=== PATIENT | female | born 1950 | race Caucasian/White ===

== ENCOUNTER → 2017-07-19 13:18 | Outpatient (POV) | payer MEDICARE, SELFPAY ==
[2017-07-19 14:18] LABS: Basophils # 0.1 K/mm3 (0-0.2); Basophils % 0.8 % (0.1-2.0); Eosinophils # 0.2 K/mm3 (0.0-0.4); Eosinophils % 3.1 % (0.1-12.0); Hematocrit 41.2 % (37.0-47.0); Hemoglobin 13.3 g/dL (12.2-16.2); Lymphocytes # 1.5 K/mm3 (0.7-4.5); Lymphocytes % 25.5 K/mm3 (10-50); Mean Corpuscular HGB Conc 32.2 g/dL (31.8-35.4); Mean Corpuscular Hemoglobin 29.3 pg (27.0-31.2); Mean Corpuscular Volume 90.9 fl (81-99); Mean Platelet Volume 7.1 fl (7.4-10.4); Monocytes # 0.3 K/mm3 (0.1-1.0); Monocytes % 4.5 % (1.7-9.3); Neutrophils # 3.9 K/mm3 (1.8-7.8); Platelet Count 289 K/mm3 (142-424); Red Blood Count 4.53 M/mm3 (4.20-5.40); Red Cell Distribution Width 12.6 % (11.5-17.5); White Blood Count 5.8 K/mm3 (4.8-10.8)
[2017-07-19 15:23] LABS: Alanine Aminotransferase 40 U/L (12-78); Albumin Level 3.6 gm/dL (3.4-5.0); Albumin/Globulin Ratio 1.2 (1.1-1.8); Alkaline Phosphatase 64 U/L (46-116); Anion Gap 14.4 mEq/L (5-15); Aspartate Amino Transferase 29 U/L (15-37); Bilirubin,Total 0.3 mg/dL (0.2-1.0); Blood Urea Nitrogen 13 mg/dL (7-18); Calcium 8.8 mg/dL (8.5-10.1); Carbon Dioxide 25 mmol/L (21.0-32.0); Chloride 107 mmol/L (98-107); Creatinine,Serum 0.83 mg/dL (0.55-1.02); Estimated Glomerular Filt Rate 69 ml/min (>60); GFR (African American) 84 ML/MIN (>60); Globulin 2.9 gm/dl (1.3-3.2); Glucose 125 mg/dL (74-106); Potassium 4.4 mmoL/L (3.5-5.1); Sodium 142 mmol/L (136-145); Total Protein,Serum 6.5 gm/dL (6.4-8.2)
== END ==
PROVIDERS: Visit Provider Physician Assistant
DX: L40.0 Psoriasis vulgaris (principal); Z79.899 Other long term (current) drug therapy
CPT/HCPCS: 36415; 80053; 85025

== ENCOUNTER → 2017-08-03 14:11 | Outpatient (CLI) | payer MEDICARE, SELFPAY | PROVIDERS: Visit Provider Physician Assistant | DX: L40.9 Psoriasis, unspecified (principal); Z79.899 Other long term (current) drug therapy | CPT/HCPCS: 36415; 86480 ==

== ENCOUNTER → 2017-08-18 12:19 | Outpatient (CLI) | payer MEDICARE, SELFPAY ==
--- NOTE | 2017-08-18 | XR_ITS ---
XR shoulder LT min 2V HISTORY: ITS.REASON: LEFT SHOULDER PAIN ORDERING PHYSICIAN: Amarilys Duff MD PATIENT AGE: 66 years Comparison: None FINDINGS: No fracture or dislocation. No lytic or blastic change. There is normal mineralization. The joint spaces are well-preserved. No significant degenerative/arthritic changes. No erosive changes evident. No subacromial stenosis IMPRESSION: Negative, no acute finding
== END ==
PROVIDERS: PCP Family Medicine; Visit Provider Family Medicine
DX: M25.512 Pain in left shoulder (principal)
CPT/HCPCS: 73030

== ENCOUNTER → 2018-01-31 12:48 | Outpatient (CLI) | payer MEDICARE, SELFPAY ==
--- NOTE | 2018-01-31 12:55 | XR_ITS ---
XR DEXA axial skeleton COMPARISON: None HISTORY: The patient is postmenopausal TECHNIQUE: DEXA scanning lumbar spine and bilateral hips FINDINGS: Lumbar spine: The average BMD lumbar spine L1-L4 is 1.216 g/sq cm and the T score is 0.3. Right hip: The total BMD is 0.989 g/sq cm with a T score of -0.1 and the right femoral neck is 0.930 g/sq cm with T score of -0.8. Left hip: The total BMD is 0.963 g/sq cm the T score -0.4 and the left femoral neck is 0.947 g/sq cm the T score -0.7. IMPRESSION: Normal values for the lumbar spine and bilateral hips, consider follow-up study in approximately 2 years
== END ==
PROVIDERS: PCP Family Medicine; Visit Provider Internal Medicine Hematology & Oncology
DX: M85.89 Other specified disorders of bone density and structure, multiple sites (principal); C50.112 Malignant neoplasm of central portion of left female breast; R93.7 Abnormal findings on diagnostic imaging of other parts of musculoskeletal system
CPT/HCPCS: 77080

== ENCOUNTER → 2018-07-19 14:41 | Outpatient (POV) | payer MEDICARE, SELFPAY | PROVIDERS: Visit Provider Dermatology | DX: Z00.00 Encounter for general adult medical examination without abnormal findings (principal) ==

== ENCOUNTER → 2018-07-28 17:11 | Outpatient (CLI) | payer MEDICARE, SELFPAY | PROVIDERS: Visit Provider Podiatrist | DX: B35.1 Tinea unguium (principal) | CPT/HCPCS: 87102; 87206; 87220 ==

== ENCOUNTER → 2018-08-10 08:48 | Outpatient (CLI) | payer MEDICARE, SELFPAY ==
[2018-08-10 09:22] LABS: Basophils # 0.1 K/mm3 (0-0.2); Basophils % 0.9 % (0.1-2.0); Eosinophils # 0.1 K/mm3 (0.0-0.4); Hemoglobin 13.7 g/dL (12.2-16.2); Lymphocytes # 1.8 K/mm3 (0.7-4.5); Lymphocytes % 34.2 % (10-50); Mean Corpuscular HGB Conc 32.5 g/dL (31.8-35.4); Mean Platelet Volume 6.4 fl (7.4-10.4); Monocytes # 0.3 K/mm3 (0.1-1.0); Monocytes % 6.4 % (1.7-9.3); Neutrophils % 56.5 % (37.0-80.0); Platelet Count 331 K/mm3 (142-424); Red Blood Count 4.88 M/mm3 (4.20-5.40); Red Cell Distribution Width 14.3 % (11.5-17.5); White Blood Count 5.3 K/mm3 (4.8-10.8)
[2018-08-10 10:53] LABS: Alanine Aminotransferase 31 U/L (12-78); Albumin Level 3.7 gm/dL (3.4-5.0); Albumin/Globulin Ratio 1.1 (1.1-1.8); Alkaline Phosphatase 72 U/L (46-116); Anion Gap 10.2 mEq/L (5-15); Aspartate Amino Transferase 12 U/L (15-37); Bilirubin,Total 0.6 mg/dL (0.2-1.0); Blood Urea Nitrogen 15 mg/dL (7-18); Calcium 9.1 mg/dL (8.5-10.1); Carbon Dioxide 31 mmol/L (21.0-32.0); Chloride 105 mmol/L (98-107); Chol/HDL Ratio 2.8 (1-3.5); Cholesterol 211 mg/dL (140-200); Creatinine,Serum 0.91 mg/dL (0.55-1.02); Estimated Glomerular Filt Rate 62 ml/min (>60); Free Thyroxine Index 2.5 ug/dL (5.93-13.13); GFR (African American) 75 ML/MIN (>60); Globulin 3.5 gm/dl (1.3-3.2); Glucose 85 mg/dL (74-106); HDL Cholesterol 76 mg/dL (29-89); LDL Cholesterol 126 mg/dL (0-130); Potassium 4.2 mmoL/L (3.5-5.1); Sodium 142 mmol/L (136-145); T4 (Thyroxine) 9.3 ug/dl (4.7-13.3); Thyroid Stimulating Hormone 1.96 uIU/ml (0.358-3.740); Total Protein,Serum 7.2 gm/dL (6.4-8.2); Triglycerides 44 mg/dL (30-200); Triiodothryronine (T3) Uptake 27 % (31-39); VLDL Cholesterol 9 mg/dL (0-40)
[2018-08-12 06:22] LABS: Triiodothyronine (T3) Free 2.9 pg/mL (2.0-4.4)
== END ==
PROVIDERS: Visit Provider Nurse Practitioner Obstetrics & Gynecology
DX: E78.5 Hyperlipidemia, unspecified (principal); R53.83 Other fatigue; Z00.00 Encounter for general adult medical examination without abnormal findings; N92.6 Irregular menstruation, unspecified
CPT/HCPCS: 36415; 80053; 80061; 84436; 84443; 84479; 84481; 85025

== ENCOUNTER → 2019-01-17 14:07 | Outpatient (POV) | payer OTHER, SELFPAY | PROVIDERS: Visit Provider Dermatology | DX: Z00.00 Encounter for general adult medical examination without abnormal findings (principal) ==

== ENCOUNTER 2019-02-09 14:00 | Outpatient (RCR) | payer OTHER, SELFPAY ==
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
== END 2019-02-09 14:05 | disposition home or self-care (01) ==
LOC: PT 14:00
PROVIDERS: Visit Provider Nurse Practitioner Family
DX: S13.4XXD Sprain of ligaments of cervical spine, subsequent encounter (principal); V89.9XXA Person injured in unspecified vehicle accident, initial encounter
CPT/HCPCS: 97010; 97014; 97035; 97110; 97140; 97163; G0283

== ENCOUNTER → 2019-02-13 13:21 | Outpatient (CLI) | payer MEDICARE, SELFPAY ==
--- NOTE | 2019-02-13 13:30 | XR_ITS ---
PROCEDURE: XR DEXA AXIAL SKELETON CLINICAL HISTORY: Bone Density- Post Menopausal Postmenopausal COMPARISON: No exams were available for comparison FINDINGS: The L1-L4 density is 1.188 grams/centimeter sq with a T-score of 0.1. The lowest hip density is in the right femoral neck at 0.909 grams/centimeters sq with a T-score of -0.9 IMPRESSION: Normal bone density. Recommend follow-up exam February 2021 Dictated by: Hung Kumari MD 02/13/2019 14:10 Electronically signed by Hung Kumari MD in [facility] 02/13/2019 14:10
== END ==
PROVIDERS: PCP Family Medicine; Visit Provider Nurse Practitioner Obstetrics & Gynecology
DX: Z78.0 Asymptomatic menopausal state (principal)
CPT/HCPCS: 77080

== ENCOUNTER → 2019-03-31 13:36 | Outpatient (CLI) | payer MEDICARE, SELFPAY ==
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
[2019-03-31 14:01] LABS: Blood Urea Nitrogen 14 mg/dL (7-18); Creatinine,Serum 0.76 mg/dL (0.55-1.02); Estimated Glomerular Filt Rate 76 ml/min (>60); GFR (African American) 92 ML/MIN (>60)
== END ==
PROVIDERS: PCP Family Medicine; Visit Provider Nurse Practitioner Family
DX: R91.1 Solitary pulmonary nodule (principal); S22.20XK Unspecified fracture of sternum, subsequent encounter for fracture with nonunion
CPT/HCPCS: 36415; 71270; 82565; 84520; Q9967

== ENCOUNTER → 2019-05-09 15:26 | Outpatient (POV) | payer MEDICARE, SELFPAY | PROVIDERS: Visit Provider Dermatology | DX: Z00.00 Encounter for general adult medical examination without abnormal findings (principal) ==

== ENCOUNTER 2019-06-08 14:00 | Outpatient (RCR) | payer OTHER, SELFPAY | END 2019-06-08 14:05 | disposition home or self-care (01) | LOC: PT 14:00 | PROVIDERS: Visit Provider Nurse Practitioner Family | DX: S13.4XXD Sprain of ligaments of cervical spine, subsequent encounter (principal) | CPT/HCPCS: 97010; 97012; 97014; 97035; 97110; 97140; 97163; G0283 ==

== ENCOUNTER → 2019-08-22 12:52 | Outpatient (POV) | payer OTHER, SELFPAY | PROVIDERS: PCP Physician Assistant; Visit Provider Physician Assistant | DX: Z00.00 Encounter for general adult medical examination without abnormal findings (principal) ==

== ENCOUNTER → 2019-08-31 12:45 | Outpatient (CLI) | payer OTHER, MEDICARE, SELFPAY ==
--- NOTE | 2019-08-31 12:55 | CT_ITS ---
PROCEDURE: CT CHEST WO CON CLINICAL INDICATION: FX OF STERNUM WITH DELAYED HEALING Follow-up sternal fracture COMPARISON: CT CHEST WO/W CON from 03/31/2019 TECHNIQUE: Axial images obtained with sagittal and coronal reformats. All CT scans at the facility use one or more dose reduction, viz: automated exposure control, ma/kV adjustment per patient size (including targeted exams where dose is matched to indication, i.e. head), or iterative reconstruction technique. With delayed healing FINDINGS: HEART AND MEDIASTINAL STRUCTURES: No mediastinal or hilar mass or adenopathy. Coronary artery calcifications are present. There is minimal thickening of the pericardium anteriorly which is nonspecific. No mediastinal or hilar mass. LUNGS AND PLEURAL SPACES: There are few scattered small and stable nodular opacities including a 2 and 3 mm nodular opacity in the right upper lobe. There are scattered areas of scarring. No new suspicious nodules or infiltrates are evident. Calcified nodules present in the left upper lobe with some surrounding scarring not significantly changed BONY STRUCTURES: There is a healed fracture involving the mid aspect of the body of the sternum. The fracture line is no longer apparent. There is minimal offset of the fracture fragments with minimal dorsal displacement of the superior fracture fragment by 3 mm not significantly changed. The fracture line is no longer visible. There are mild degenerative changes of the thoracic spine UPPER ABDOMEN: Unremarkable. ADDITIONAL FINDINGS: Bilateral breast implants are in place IMPRESSION: Healed sternal fracture. Chronic changes with no acute finding. Dictated by: Hung Kumari MD 09/01/2019 13:24 Electronically signed by Hung Kumari MD in [facility] 09/01/2019 13:24
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
== END ==
PROVIDERS: PCP Nurse Practitioner Family; Visit Provider Nurse Practitioner Family
DX: S22.20XG Unspecified fracture of sternum, subsequent encounter for fracture with delayed healing (principal); M54.2 Cervicalgia; Z87.828 Personal history of other (healed) physical injury and trauma
CPT/HCPCS: 71250; 72141; 76376

== ENCOUNTER → 2019-10-26 13:53 | Outpatient (POV) | payer OTHER, MEDICARE, SELFPAY ==
[2019-10-26 14:35] VITALS: BP 127/56; PULSE 85; RESP 18; TEMP 36.8; O2SAT 98; BMI 28.8
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
== END ==
PROVIDERS: PCP Family Medicine; Visit Provider Clinical Nurse Specialist Family Health
DX: M47.896 Other spondylosis, lumbar region (principal); M54.12 Radiculopathy, cervical region; M48.02 Spinal stenosis, cervical region
CPT/HCPCS: 99202

== ENCOUNTER 2019-11-03 13:44 | Day surgery (SDC) | payer MEDICARE, SELFPAY ==
[2019-11-03 14:19] VITALS: BP 117/92; PULSE 71; RESP 18; TEMP 37; O2SAT 98; BMI 27.8
[2019-11-03 14:45] VITALS: BP 132/78; PULSE 85; RESP 18
[2019-11-03 14:47] VITALS: BP 140/78; PULSE 89; RESP 18; O2SAT 98
--- NOTE | 2019-11-03 14:55 | HMH.PMPROC ---
- Procedure Date: 11/03/19 Time: 14:55 Anesthesiologist:: Gulshan Augustin MD Complications:: None Pre-procedure Diagnosis:: Degenerative disc disease of cervical spine with cervical radiculopathy symptoms Post-procedure Diagnosis:: Same Indications for Procedure:: This patient is a pleasant 68-year-old white female who we are treating for neck pain with cervical radiculopathy symptoms. She does have increasing neck pain with radiation to both shoulders. We will do a cervical epidural steroid injection today to help her with her pain symptoms. She has seen Dr. Syed who said she is not a candidate for any surgery. Procedure Details:: Cervical epidural steroid injection under fluoroscopy Informed consent was obtained and the risks and benefits of the procedure was explained to the patient. The patient was taken to the procedure room placed prone on the procedure table. The neck was prepped using ChloraPrep. The skin and subcutaneous tissues were anesthetized using lidocaine. I placed a 18-gauge epidural needle into the C5-C6 interspace and advanced using [id number] to air and fluoroscopic guidance. After confirmation of needle placement in the epidural space with dye, I injected 3 mL's lidocaine 1.5% and Depo-Medrol 80 mg. The patient tolerated the procedure well with no complications. Plan and Disposition:: We will follow-up with her in 2 weeks. Will reevaluate her symptoms at that time we will plan on repeat cervical epidural steroid injection if needed.
[2019-11-03 15:05] VITALS: BP 118/73; PULSE 74; RESP 18; O2SAT 98
== END 2019-11-03 15:06 | disposition home or self-care (01) ==
LOC: SC.PAINP 13:45
PROVIDERS: PCP Family Medicine; Visit Provider Anesthesiology
DX: M50.10 Cervical disc disorder with radiculopathy, unspecified cervical region (principal); I10 Essential (primary) hypertension; Z72.0 Tobacco use; I25.10 Atherosclerotic heart disease of native coronary artery without angina pectoris; Z79.899 Other long term (current) drug therapy; Z88.8 Allergy status to other drugs, medicaments and biological substances; Z87.442 Personal history of urinary calculi; Z90.13 Acquired absence of bilateral breasts and nipples; Z90.89 Acquired absence of other organs
CPT/HCPCS: 62321; J1040; Q9966

== ENCOUNTER → 2019-11-20 12:44 | Outpatient (POV) | payer MEDICARE, SELFPAY ==
--- NOTE | 2019-11-20 13:13 | P.CONS_ITS ---
[facility] Pain Management SOAP Note Subjective:: Patient is a pleasant 68-year-old white female who we are treating for neck pain with cervical radiculopathy symptoms. She has been seen by Dr. Syed who said she is not a candidate for any kind of surgery. Patient states that her pain has quite improved rating it a 5 out of 10. Patient states that she has some weakness in her bilateral arms and legs. However she is been recently sweating quite a bit. She does drink a significant amount of water. She also states she has not been exercising as she typically does. Patient does have palpable trigger points in her bilateral cervical paraspinous and trapezius muscles. We discussed dry needling. She is interested in pursuing this. ROS General: no recent weight change, no fever, no sleep disturbances Respiratory: no cough, no shortness of air, no recurring pulmonary infections Cardiovascular/Peripheral Vascular: No chest pain, No palpitations, no edema, no shortness of breath. Gastrointestinal: no new onset incontinence, normal bowel movements reported Genitourinary: no new onset incontinence Musculoskeletal: Neck pain, myofascial pain Psychiatric: normal mood/ affect Neurological: [denies new onset weakness in extremities], [denies new onset balance issues] Objective:: Physical Exam General: Alert and oriented x3, no acute distress, pleasant and cooperative, [on room air] Lungs: Resps E/U, Symmetrical chest expansion, Eyes: PERRL Musculoskeletal: Flexion and extension of cervical spine somewhat guarded secondary to pain, deep tendon reflexes normal, strength in upper and lower extremities [5/5], slightly antalgic gait noted Neurological: speech 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 I will follow-up with the patient in 3 weeks after this reassess her symptoms at that time she has been instructed to call the office if she has any issues prior to her next appointment. I did recommend drinking Gatorade or any electrolyte replenishing drink. Dr. Augustin has reviewed this note and agrees with this plan of care. This note was dictated using voice recognition software and may contain errors or omissions [facility] History I have reviewed the patient's past medical history: Yes Medical History: Reports:: Cancer (breast), Hyperlipidemia, Migraine, Valvular Heart Disease Denies:: Cerebrovascular Accident, Diabetes Mellitus Type 1, Diabetes Mellitus Type 2, MRSA, Seizures *Have you ever received a pneumonia vaccine?: No *Have you received a flu vaccine this season?: No Laterality Cases: Bilateral: Mastectomy, Myringotomy (Ear Tubes), Tonsillectomy, Other Other Surgeries: Yes: Colonoscopy, Tubal Ligation Amputation: No Fractures: No - *Social History Smoking Status: Current some day smoker Tobacco Type: e-cigarettes # Packs/Day (cigarettes): 0 Alcohol Intake: current Alcohol Intake Frequency:: holidays/special occasions only Substance Use Type: denies use *Occupational Status:: retired Housing: house Household Members: spouse *Travel in the last 8 weeks: None Family Hx:: Unable to obtain
[2019-11-20 13:16] VITALS: BP 132/74; PULSE 85; RESP 18; O2SAT 98; BMI 28.0
== END ==
PROVIDERS: PCP Family Medicine; Visit Provider Clinical Nurse Specialist Family Health
DX: M50.10 Cervical disc disorder with radiculopathy, unspecified cervical region (principal); M79.18 Myalgia, other site
CPT/HCPCS: 99212

== ENCOUNTER 2019-12-27 13:00 | Outpatient (RCR) | payer OTHER, MEDICARE, SELFPAY ==
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
== END 2019-12-27 13:48 | disposition home or self-care (01) ==
LOC: PT 13:00
PROVIDERS: PCP Family Medicine; Visit Provider Clinical Nurse Specialist Family Health
DX: M54.2 Cervicalgia (principal)
CPT/HCPCS: 20560; 97010; 97014; 97035; 97110; 97140; 97163; G0283

== ENCOUNTER → 2019-12-29 10:09 | Outpatient (CLI) | payer MEDICARE, SELFPAY ==
--- NOTE | 2019-12-29 10:17 | XR_ITS ---
PROCEDURE: XR KUB CLINICAL INDICATION: LLQ ABD PAIN,H/O RENAL CALCULI COMPARISON: CT ABDPELW/O CT ABD PELVIS W/O CONTRAST from 10/30/2016 FINDINGS: There is mild lumbar curvature convex right. There are small faint opacities overlying both kidneys may be due to nephrolithiasis.. There is a mild amount of retained colonic feces. No evidence of intestinal obstruction. IMPRESSION: Bilateral nephrolithiasis Dictated by: Hung Kumari MD 12/29/2019 16:21 Hung Kumari MD in [facility] 12/29/2019 16:21
== END ==
PROVIDERS: PCP Nurse Practitioner Family; Visit Provider Nurse Practitioner Family
DX: R10.32 Left lower quadrant pain (principal); Z87.442 Personal history of urinary calculi
CPT/HCPCS: 74018

== ENCOUNTER → 2020-02-02 12:33 | Outpatient (CLI) | payer MEDICARE, SELFPAY ==
--- NOTE | 2020-02-02 12:36 | XR_ITS ---
PROCEDURE: XR FOOT WT BEARING RT 3V CLINICAL INDICATION: patient having pain from a fall. COMPARISON: CR FTL3 FOOT-LT-3 VIEWS from 01/21/2017 CR FTR3 FOOT-RT-3 VIEWS from 01/21/2017 FINDINGS: No fracture or dislocation. No lytic or blastic change. There is normal mineralization. There is mild hallux valgus with mild hypertrophic changes at the distal aspect of the 1st metatarsal. Other findings:None. IMPRESSION: No acute findings. Dictated by: Hung Kumari MD 02/02/2020 12:56 Hung Kumari MD in [facility] 02/02/2020 12:56
== END ==
PROVIDERS: PCP Family Medicine; Visit Provider Podiatrist
DX: S99.921A Unspecified injury of right foot, initial encounter (principal)
CPT/HCPCS: 73630

== ENCOUNTER 2020-04-15 15:34 | Emergency (ER) | payer MEDICARE, SELFPAY ==
--- NOTE | 2020-04-15 16:34 | HMH.EDUTC ---
[facility] Disposition Clinical Impression: Exposure to COVID-19 virus Disposition: Home, Self-Care Condition on Discharge: Good Instructions: Preventing the Spread of Coronavirus Discharge Instructions Additional Instructions: Drink plenty of fluids. Take tylenol or ibuprofen for pain or fever. Take the medications as directed. Follow up with your regular doctor. GO TO THE ER FOR ANY WORSENING SYMPTOMS Referrals: Mary Jeffrey APRN [Primary Care Provider] - Time of Disposition: 17:09 Medical Decision Making - Medical Records Medical records reviewed: No: I reviewed the patient's medical records. - Bob Inquiry Pt receiving controlled substance: No Vital Signs: 04/15/20 16:35 04/15/20 17:25 Temperature 97.6 F 97.6 F Temperature Source Oral Pulse Rate 77 Pulse Rate [Right Brachial] 77 Respiratory Rate 16 16 Blood Pressure 115/68 Blood Pressure [Right Arm] 115/68 Blood Pressure Mean [Right Arm] 83 Blood Pressure Source [Right Arm] Automatic Cuff Blood Pressure Position [Right Arm] Sitting 02 Sat by Pulse Oximetry 95 Oxygen Delivery Method Room Air Orders (Tests/Meds): ORDERS Category Date Time Status Covid-19 Nasal PCR ([facility]) Routine Lab 04/15/20 17:00 Received [facility] HPI - General Stated complaint: covid test Time Seen by Provider: 04/15/20 17:19 - History of Present Illness Provider Complaint: She states that she has been in and out of the hospital for the past week or so. She thinks that she may have been exposed to covid. She denies any shortness of breath or cough. - Related Data Home Medications Medication Instructions Recorded Confirmed calcium carbonate 600 mg (1,500 1 tab PO DAILY 07/11/18 02/06/19 mg)-vitamin D3 400 unit tablet lidocaine 4 % topical patch 1 patch TOPICAL BID 07/11/18 02/06/19 loratadine 10 mg tablet 10 mg PO DAILY 07/11/18 02/06/19 pravastatin 40 mg tablet 1 mg PO DAILY 90 Days tab 07/11/18 02/06/19 tramadol 50 mg tablet 50 mg PO DAILY 07/11/18 02/06/19 calcipotriene 0.005 1 applic TOPICAL DAILY 07/28/18 02/06/19 %-betamethasone 0.064 % topical foam fluticasone propionate 50 1 inh INHALATION BID 02/06/19 02/06/19 mcg/actuation blister powder for inhalation Esomeprazole Magnesium [Nexium] 40 mg PO DAILY 11/03/19 11/03/19 Zolpidem Tartrate [Ambien 10mg 10 mg PO HSP PRN 11/03/19 11/03/19 tablet] Allergies Allergy/AdvReac Type Severity Reaction Status Date / Time itraconazole [ITRACONAZOLE] Allergy Intermediate I-RASH Verified 11/03/19 14:19 [facility] History - Hepatitis A Screen Attestation statement:: This patient has been screened for Hepatitis A risk factors. I have reviewed the patient's past medical history: Yes Medical History: Reports:: Cancer (breast), Hyperlipidemia, Migraine, Valvular Heart Disease Denies:: Cerebrovascular Accident, Diabetes Mellitus Type 1, Diabetes Mellitus Type 2, MRSA, Seizures Comment: Breast CA. Hypoglycemic. Fibromyalgia. Psoriasis Laterality Cases: Bilateral: Mastectomy, Myringotomy (Ear Tubes), Tonsillectomy, Other Other Surgeries: Yes: Colonoscopy, Tubal Ligation Amputation: No Fractures: No - Social History Smoking Status: Current some day smoker Tobacco Type: e-cigarettes # Packs/Day (cigarettes): 0 Alcohol Intake: current Alcohol Intake Frequency:: holidays/special occasions only Substance Use Type: denies use Occupational Status: other Housing: house Household Members: spouse Family Hx:: Unable to obtain ROS Obtained: Yes All systems reviewed & no additional complaints - Constitutional Constitutional: Reports system reviewed and no additional complaints, except as docu - Eyes Eyes: Reports system reviewed and no additional complaints, except as docu - ENT Ears, Nose, Mouth, and Throat: Reports system reviewed and no additional complaints, except as docu - Cardiovascular Cardiovascular: Reports system reviewed and no additional complaints, exce
[2020-04-15 16:35] VITALS: BP 115/68; PULSE 77; RESP 16; TEMP 36.4; O2SAT 95; BMI 29.0
[2020-04-15 17:25] VITALS: BP 115/68; PULSE 77; RESP 16; TEMP 36.4; O2SAT 95
== END 2020-04-15 17:33 | disposition home or self-care (01) ==
PROVIDERS: Emergency Provider Nurse Practitioner Family; PCP Nurse Practitioner Family
DX: Z20.822 Contact with and (suspected) exposure to COVID-19 (principal); E78.5 Hyperlipidemia, unspecified; F17.290 Nicotine dependence, other tobacco product, uncomplicated; Z85.3 Personal history of malignant neoplasm of breast; M79.7 Fibromyalgia; Z79.899 Other long term (current) drug therapy
CPT/HCPCS: G0463; 99202; U0003

== ENCOUNTER → 2020-05-07 10:57 | Outpatient (POV) | payer MEDICARE, SELFPAY | PROVIDERS: Visit Provider Dermatology | DX: Z00.00 Encounter for general adult medical examination without abnormal findings (principal) ==

== ENCOUNTER → 2020-09-27 13:40 | Outpatient (CLI) | payer MEDICARE, SELFPAY ==
[2020-09-27 14:26] LABS: Basophils % 0.6 % (0.1-2.0); Eosinophils # 0.3 K/mm3 (0.0-0.4); Eosinophils % 3.9 % (0.1-12.0); Hematocrit 38.5 % (37.0-47.0); Hemoglobin 12.7 g/dL (12.2-16.2); Lymphocytes # 1.8 K/mm3 (0.7-4.5); Mean Corpuscular Hemoglobin 28.3 pg (27.0-31.2); Mean Corpuscular Volume 85.8 fl (81-99); Mean Platelet Volume 7.1 fl (7.4-10.4); Monocytes # 0.4 K/mm3 (0.1-1.0); Neutrophils % 66.5 % (37.0-80.0); Platelet Count 263 K/mm3 (142-424); Red Blood Count 4.48 M/mm3 (4.20-5.40); Red Cell Distribution Width 13.1 % (11.5-17.5); White Blood Count 7.5 K/mm3 (4.8-10.8)
[2020-09-27 14:54] LABS: Alanine Aminotransferase 25 U/L (12-78); Albumin/Globulin Ratio 1.5 (1.1-1.8); Alkaline Phosphatase 104 U/L (38-126); Anion Gap 10.1 mEq/L (5-15); Aspartate Amino Transferase 30 U/L (14-36); Bilirubin,Total 0.4 mg/dl (0.2-1.3); Blood Urea Nitrogen 14 mg/dl (7-17); Carbon Dioxide 28 mmol/L (22.0-30.0); Chloride 107 mmol/L (98-107); Estimated Glomerular Filt Rate 72 ml/min (>60); GFR (African American) 87 ML/MIN (>60); Globulin 2.6 g/dL (1.3-3.2); Glucose 90 mg/dl (74-100); Potassium 4.1 mmoL/L (3.5-5.1); Sodium 141 mmol/L (136-145); Total Protein,Serum 6.6 g/dl (6.3-8.2)
[2020-09-29 10:35] LABS: HIV Screen 4th Generation wRfx Non Reactive (Non Reactive); Hep B Core Ab, Total Negative (Negative); Hepatitis C Antibody <0.1 s/co ratio (0.0-0.9)
[2020-10-01 09:46] LABS: QuantiFERON-TB Gold Plus Negative (Negative)
== END ==
PROVIDERS: Visit Provider Physician Assistant Medical
DX: L40.0 Psoriasis vulgaris (principal); L30.4 Erythema intertrigo; Z11.4 Encounter for screening for human immunodeficiency virus [HIV]
CPT/HCPCS: 36415; 80053; 85025; 86480; 86703; 86704; 87380; G0432

== ENCOUNTER → 2020-10-02 12:36 | Outpatient (CLI) | payer MEDICARE, SELFPAY ==
--- NOTE | 2020-10-02 12:47 | CT_ITS ---
PROCEDURE: CT CHEST WO/W CON CLINCAL INDICATION: LUNG NODULE Follow-up lung nodule COMPARISON: CT CT CHEST WO CON from 08/31/2019 TECHNIQUE: IV Contrast: 75ml Isovue 370 Axial images obtained with sagittal and coronal reformats. All CT scans at the facility use one or more dose reduction, viz: automated exposure control, ma/kV adjustment per patient size (including targeted exams where dose is matched to indication, i.e. head), or iterative reconstruction technique. FINDINGS: HEART AND MEDIASTINAL STRUCTURES: No mediastinal or hilar mass or adenopathy. Coronary artery calcifications are noted. LUNGS AND PLEURAL SPACES: Scattered areas of scarring. There is a calcified nodule in the left upper lobe medially which is unchanged. Medial to this calcified nodule is a soft tissue component which is become slightly more prominent but may be related to underlying volume loss or scarring. Cannot exclude the possibility a neoplasm. PET CT suggested for further evaluation if not already performed. The AP and transverse dimension the soft tissue component is 1.4 by 0.7 cm previously 1.2 x 0.4 cm. A vertical bandlike area of density is associated with this region suggesting that this may represent volume loss or scarring. 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 ADDITIONAL FINDINGS: Bilateral breast implants noted. IMPRESSION: 1. Complex parenchymal opacity left upper lobe once again noted. The soft tissue component is slightly more prominent possibly related to progressive fibrotic changes/volume loss. Cannot exclude underlying neoplasm. Suggest PET-CT for further evaluation if not already performed. 2. 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
== END ==
PROVIDERS: PCP Nurse Practitioner Family; Visit Provider Thoracic Surgery (Cardiothoracic Vascular Surgery)
DX: R91.1 Solitary pulmonary nodule (principal)
CPT/HCPCS: 71270; Q9967

== ENCOUNTER → 2020-11-26 15:40 | Outpatient (CLI) | payer MEDICARE, SELFPAY ==
--- NOTE | 2020-11-26 15:51 | XR_ITS ---
PROCEDURE: XR HAND RT MIN 3V CLINICAL INDICATION: SWELLING OF RT HAND, RT HAND PAIN COMPARISON: CR HANDL3 HAND-LT-3 VIEWS from 08/19/2012 FINDINGS: No fracture or dislocation. No lytic or blastic change. There is normal mineralization. The joint spaces are well-preserved. No significant degenerative/arthritic changes. No erosive changes evident. Other findings:None. IMPRESSION: No acute findings. Dictated by: Hung Kumari MD 11/26/2020 16:32 Hung Kumari MD in [place] 11/26/2020 16:32
[2020-11-26 16:12] LABS: Basophils # 0.1 K/mm3 (0-0.2); Basophils % 1.1 % (0.1-2.0); Eosinophils # 0.3 K/mm3 (0.0-0.4); Eosinophils % 5.1 % (0.1-12.0); Hematocrit 42.7 % (37.0-47.0); Hemoglobin 13.5 g/dL (12.2-16.2); Lymphocytes # 1.6 K/mm3 (0.7-4.5); Lymphocytes % 28.8 % (10-50); Mean Corpuscular HGB Conc 31.7 g/dL (31.8-35.4); Mean Corpuscular Hemoglobin 27.7 pg (27.0-31.2); Mean Corpuscular Volume 87.5 fl (81-99); Mean Platelet Volume 7.7 fl (7.4-10.4); Monocytes # 0.5 K/mm3 (0.1-1.0); Neutrophils # 3.2 K/mm3 (1.8-7.8); Platelet Count 339 K/mm3 (142-424); Red Blood Count 4.88 M/mm3 (4.20-5.40); Red Cell Distribution Width 13.6 % (11.5-17.5); White Blood Count 5.6 K/mm3 (4.8-10.8)
[2020-11-26 17:18] LABS: C-Reactive Protein 2.1 mg/L (0-4)
[2020-11-26 19:56] LABS: Erythrocyte Sedimentation Rate 17 mm/hr (0-30)
[2020-11-28 11:12] LABS: RA Latex Turbid. <10.0 IU/mL (0.0-13.9)
[2020-11-29 12:06] LABS: Antinuclear Antibodies, IFA Positive (.)
== END ==
PROVIDERS: PCP Nurse Practitioner Family; Visit Provider Nurse Practitioner Family
DX: M79.641 Pain in right hand (principal); M79.89 Other specified soft tissue disorders
CPT/HCPCS: 36415; 73130; 84550; 85025; 85651; 86038; 86140; 86431

== ENCOUNTER → 2021-03-21 14:54 | Outpatient (CLI) | payer MEDICARE, SELFPAY ==
--- NOTE | 2021-03-21 14:56 | CT_ITS ---
PROCEDURE INFORMATION: Exam: CT Chest Without Contrast; Diagnostic Exam date and time: 03/21/2021 2:56 PM Age: 70 years old Clinical indication: Other: Lung nodule follow up TECHNIQUE: Imaging protocol: Diagnostic computed tomography of the chest without contrast. Radiation optimization: All CT scans at this facility use at least one of these dose optimization techniques: automated exposure control; mA and/or kV adjustment per patient size (includes targeted exams where dose is matched to clinical indication); or iterative reconstruction. COMPARISON: CT CHEST WO/W CON 10/02/2020 1:09 PM, 08/31/2019 FINDINGS: Lungs: As seen on series 3 images 28-32, there is a calcified nodule in the left upper lobe medially. Medial to this calcification there is a nodular soft tissue component measuring up to 15 mm. This has increased in size compared to the 2 prior chest CTs. Pleural spaces: Unremarkable. No pneumothorax. No pleural effusion. Heart: Unremarkable. No cardiomegaly. No pericardial effusion. Aorta: Unremarkable. No aortic aneurysm. Lymph nodes: There are calcified mediastinal and left hilar lymph nodes. There are small noncalcified mediastinal lymph nodes. No grossly enlarged lymph nodes. Bones/joints: There are mild degenerative changes of the thoracic spine. No fracture. Soft tissues: There are bilateral breast implants. IMPRESSION: 1. Old granulomatous disease. 2. Calcified granuloma in the left upper lobe medially. Medial to the calcification there is a soft tissue component which has increased in size compared to the 2 prior scans. This could represent fibrosis. The possibility of a scar associated neoplasm cannot be excluded. For both low risk and high risk patients, consider CT Chest at 3 months, PET/CT if not already performed, or biopsy. (Reference: Gaby) REFERENCES: Gaby Muniz et al. Guidelines for Management of Incidental Pulmonary Nodules Detected on CT Images: From the Fleischner Society 2017. Radiology. 2017;284(1):228-243.
== END ==
PROVIDERS: PCP Nurse Practitioner Family; Visit Provider Internal Medicine Critical Care Medicine
DX: R91.1 Solitary pulmonary nodule (principal)
CPT/HCPCS: 71250

== ENCOUNTER → 2021-06-10 13:21 | Outpatient (CLI) | payer MEDICARE, SELFPAY ==
[2021-06-10 14:04] LABS: Basophils % 0.9 % (0.1-2.0); Eosinophils # 0.2 K/mm3 (0.0-0.4); Eosinophils % 3.3 % (0.1-12.0); Hematocrit 39.2 % (37.0-47.0); Hemoglobin 12.4 g/dL (12.2-16.2); Lymphocytes % 42.9 % (10-50); Mean Corpuscular HGB Conc 31.7 g/dL (31.8-35.4); Mean Corpuscular Hemoglobin 27.4 pg (27.0-31.2); Mean Corpuscular Volume 86.4 fl (81-99); Mean Platelet Volume 7.8 fl (7.4-10.4); Monocytes # 0.3 K/mm3 (0.1-1.0); Monocytes % 7.2 % (1.7-9.3); Neutrophils # 2.1 K/mm3 (1.8-7.8); Neutrophils % 45.7 % (37.0-80.0); Platelet Count 308 K/mm3 (142-424); Red Blood Count 4.53 M/mm3 (4.20-5.40); Red Cell Distribution Width 14.5 % (11.5-17.5); White Blood Count 4.6 K/mm3 (4.8-10.8)
[2021-06-10 14:21] LABS: Alanine Aminotransferase 234 U/L (12-78); Albumin/Globulin Ratio 1.5 (1.1-1.8); Alkaline Phosphatase 98 U/L (38-126); Anion Gap 8.7 mEq/L (5-15); Aspartate Amino Transferase 162 U/L (14-36); Bilirubin,Total 0.6 mg/dl (0.2-1.3); Blood Urea Nitrogen 18 mg/dl (7-17); Calcium 9.2 mg/dl (8.4-10.2); Carbon Dioxide 28 mmol/L (22.0-30.0); Chloride 107 mmol/L (98-107); Estimated Glomerular Filt Rate 62 ml/min (>60); GFR (African American) 75 ML/MIN (>60); Globulin 2.7 g/dL (1.3-3.2); Glucose 90 mg/dl (74-100); Potassium 4.7 mmoL/L (3.5-5.1); Sodium 139 mmol/L (136-145); Total Protein,Serum 6.7 g/dl (6.3-8.2)
[2021-06-10 14:27] LABS: C-Reactive Protein 2.2 mg/L (0-4)
[2021-06-10 15:36] LABS: Erythrocyte Sedimentation Rate 17 mm/hr (0-30)
== END ==
PROVIDERS: PCP Internal Medicine Adolescent Medicine; Visit Provider Nurse Practitioner Family
DX: D89.9 Disorder involving the immune mechanism, unspecified (principal); L40.50 Arthropathic psoriasis, unspecified
CPT/HCPCS: 36415; 80053; 85025; 85651; 86140

== ENCOUNTER → 2021-09-30 08:58 | Outpatient (CLI) | payer MEDICARE, SELFPAY ==
[2021-09-30 10:12] LABS: Chloride 106 mmol/L (98-107); Potassium 4.4 mmoL/L (3.5-5.1); Sodium 141 mmol/L (136-145)
[2021-09-30 10:14] LABS: Blood Urea Nitrogen 13 mg/dl (7-17); Estimated Glomerular Filt Rate 71 ml/min (>60); GFR (African American) 86 ML/MIN (>60)
[2021-09-30 10:15] LABS: Alanine Aminotransferase 46 U/L (12-78); Albumin Level 3.9 g/dl (3.5-5.0); Albumin/Globulin Ratio 1.4 (1.1-1.8); Alkaline Phosphatase 93 U/L (38-126); Anion Gap 8.4 mEq/L (5-15); Aspartate Amino Transferase 48 U/L (14-36); Bilirubin,Total 0.5 mg/dl (0.2-1.3); Calcium 9.5 mg/dl (8.4-10.2); Carbon Dioxide 31 mmol/L (22.0-30.0); Globulin 2.8 g/dL (1.3-3.2); Glucose 102 mg/dl (74-100); Total Protein,Serum 6.7 g/dl (6.3-8.2)
== END ==
PROVIDERS: PCP Internal Medicine Adolescent Medicine; Visit Provider Internal Medicine
DX: D89.9 Disorder involving the immune mechanism, unspecified (principal); R94.5 Abnormal results of liver function studies
CPT/HCPCS: 36415; 80053

== ENCOUNTER → 2022-01-08 09:49 | Outpatient (CLI) | payer MEDICARE, SELFPAY ==
--- NOTE | 2022-01-08 09:57 | XR_ITS ---
FINAL REPORT CLINICAL HISTORY: IMMUNODEFICIENCY DUE TO DRUGS, FATIGUE COMPARISON: 12/20/2020 FINDINGS: Two views of the chest were obtained. The heart size and pulmonary vascularity are within normal limits. The mediastinum is normal. No acute pulmonary abnormality is identified. There is no pneumothorax. The bony thorax is intact. IMPRESSION: No active cardiopulmonary disease. Reviewed, Interpreted and Dictated by Jae Coronado III, MD Transcribed by Melanie Mays Authenticated and [facility]
== END ==
PROVIDERS: PCP Family Medicine; Visit Provider Nurse Practitioner Women's Health
DX: D84.821 Immunodeficiency due to drugs (principal); L40.50 Arthropathic psoriasis, unspecified; R53.83 Other fatigue
CPT/HCPCS: 71046

== ENCOUNTER → 2022-01-26 07:14 | Outpatient (CLI) | payer MEDICARE, SELFPAY | PROVIDERS: PCP Family Medicine; Visit Provider Nurse Practitioner Women's Health | DX: D84.821 Immunodeficiency due to drugs (principal); R76.12 Nonspecific reaction to cell mediated immunity measurement of gamma interferon antigen response without active tuberculosis ==

== ENCOUNTER → 2022-04-20 10:56 | Outpatient (CLI) | payer MEDICARE, SELFPAY | PROVIDERS: PCP Family Medicine; Visit Provider Family Medicine | DX: R06.83 Snoring (principal); M62.9 Disorder of muscle, unspecified; G47.33 Obstructive sleep apnea (adult) (pediatric) | CPT/HCPCS: G0399 ==

== ENCOUNTER → 2022-07-13 07:32 | Outpatient (CLI) | payer MEDICARE, SELFPAY ==
--- NOTE | 2022-07-13 07:35 | CA_ITS ---
FINAL REPORT TECHNIQUE: Color Doppler, duplex Doppler and aguilar scale sonography of the bilateral neck arterial vasculature was performed. Velocities were measured in the carotid arteries. Stenosis evaluation based on the validated velocity criteria. 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 The peak systolic velocity of the right internal carotid artery is 89 cm/s and end diastolic velocity 23 cm/s. The ICA/CCA ratio is 1.4. A mild to moderate amount of plaque is present. The right external carotid artery is patent. The right vertebral artery is patent with antegrade flow. The peak systolic velocity of the left common carotid artery is a 68 cm/s. The peak systolic velocity of the left internal carotid artery is 72 cm/s and end diastolic velocity 20 cm/s. The ICA/CCA ratio is 1.1. A mild to moderate amount of plaque is present. The left external carotid artery is patent.The left vertebral artery is patent with antegrade flow. IMPRESSION: Less than 50% bilateral carotid stenosis. Bilateral patent vertebral arteries with antegrade flow. If indicated, CTA or MRA could further evaluate. Reviewed, Interpreted and Dictated by Jae Coronado III, MD Transcribed by Melanie Mays Authenticated and [facility]
--- NOTE | 2022-07-13 08:12 | XR_ITS ---
FINAL REPORT TECHNIQUE: Bone densitometry calculations of the lumbar spine and right hip were obtained. CLINICAL HISTORY: post menopausal COMPARISON: 02/13/2019 FINDINGS: DEXA BONE DENSITY AXIAL SKELETON Using L1-4, the bone mineral density of the spine is 0.966 g/cm2, corresponding to T-score of -0.7. Previously measured 1.188 g/cm2, corresponding to T-score of 0.1. Using the right hip, the bone mineral density of the femoral neck is 0.763 g/cm2, corresponding to a T-score of -1.3. Previously measured 0.909 g/cm2, corresponding to T-score of -0.9. NOTE: T-score: Standard deviation compared with peak bone mass of young adult mean. *Following the recommendations of the International Society of Bone densitometry, classification of hip BMD is based on the lower of two T-scores; total hip or femoral neck. IMPRESSION: Diminished bone mineral density of the lumbar spine and right hip consistent with osteopenia, worse than previous. FRAX 10 year fracture risk is 1.1% for a hip fracture and 9.1% for a major osteoporotic fracture. Reviewed, Interpreted and Dictated by Jae Coronado III, MD Transcribed by Melanie Mays Authenticated and . [facility]
== END ==
PROVIDERS: PCP Family Medicine; Visit Provider Nurse Practitioner Family
DX: R09.89 Other specified symptoms and signs involving the circulatory and respiratory systems (principal); Z78.0 Asymptomatic menopausal state; I63.9 Cerebral infarction, unspecified; Z13.820 Encounter for screening for osteoporosis
CPT/HCPCS: 77080; 93880

== ENCOUNTER 2022-12-15 09:46 | Emergency (ER) | payer MEDICARE, SELFPAY ==
[2022-12-15 10:10] VITALS: BP 141/57; PULSE 68; RESP 20; TEMP 36.7; O2SAT 98; BMI 30.4
--- NOTE | 2022-12-15 10:36 | EXP.UTC ---
Discharge Plan Disposition Patient Disposition: Home, Self-Care Condition: Good Prescriptions Prescriptions: New tizanidine 2 mg capsule 2 mg PO Q8H PRN (Reason: muscle spasticity) Qty: 20 0RF methylprednisolone [Medrol (Juan)] 4 mg tablets,dose pack See Rx Instructions .Route .COMPLEX 6 Days Qty: 21 0RF Rx Instructions: taper pack; No Action Enstilar 0.005-0.064 % foam 1 applic TOPICAL DAILY fluticasone propionate 50 mcg/actuation spray,suspension INTRANASAL etodolac 400 mg tablet 400 mg PO celecoxib 200 mg capsule 200 mg PO venlafaxine 37.5 mg capsule,extended release 24hr 37.5 mg PO certolizumab pegol 400 mg (200 mg x 2 vials) kit 200 mg SQ Q4W azithromycin [Zithromax Z-Juan] 250 mg tablet See Rx Instructions PO .COMPLEX Qty: 6 0RF Rx Instructions: For 250 mg dose pack: take 500 mg today (day 1), then 250 mg for 4 days (days 2-5) PO pravastatin 40 mg tablet 1 mg PO DAILY 90 Days calcium carbonate-vitamin D3 [Calcium with Vitamin D] 600 mg(1,500mg) -400 unit tablet 1 tab PO DAILY fluticasone propionate 50 mcg/actuation blister with device 1 inh INHALATION BID esomeprazole magnesium 40 MG capsule,delayed release(DR/EC) 40 mg PO DAILY Referrals Follow up/Referrals: Amarilys Duff MD [Primary Care Provider] - See instructions Activity Restrictions/Add. Instructions Additional Instructions/Restrictions: *weight bearing as tolerated *RICE, Rest the extremity, Alternate Ice 15-20 minutes 3-4 times daily, and heat *Ibuprofen as directed on package every 6-8 hours as needed for pain an inflammation if you can take it If need something more can take Tylenol in between doses of Ibuprofen to help Immediately follow up with your family doctor for new or worsening of symptoms, or no noticeable improvement over the next 3-5 days Take prescribed medications as prescribed and follow up with your Family Doctor next week if no improvement or sooner if any worsening of symptoms Clinical Impressions Clinical Impression: Groin strain Qualifiers: Encounter type: initial encounter Laterality: right Qualified Code(s): S76.211A - Strain of adductor muscle, fascia and tendon of right thigh, initial encounter Instructions Patient Instructions: DI for Groin Strain, Groin Strain, Tizanidine Discharge ED Provider: Lorri Ashby [facility] [place] HPI General Stated complaint: pain in groin, no accident Mode of Arrival: Ambulatory Source of Information: Patient Limitations: No Limitations Time Seen by Provider: 12/15/22 10:37 Description of Symptoms (Recalled from Triage Doc. by RN): PATIENT C/O POSSIBLE PULLED MUSCLE IN RIGHT GROIN. SHE STATES IT'S BEEN GOING ON FOR A WHILE BUT STARTED GETTING WORSE ON WEDNESDAY AFTERNOON. HEENT Symptoms (Recalled from RN notes): No Resp Symptoms (Recalled from RN notes): No Skin Symptoms (Recalled from RN notes): No MS Symptoms (Recalled from RN notes): Yes Functional Status (Recalled from RN notes): WNL History of Present Illness Provider Complaint: Patient states that a couple weeks ago she was getting into a car and felt something pull in her right groin area States that it was doing better but then on it started hurting again States that it feels like it is spasming up at times with certain movements and walking States that as long as she is sitting still it doesnt hurt that bad States that she had some left over Flexeril and she took it and it did help but she is out it and now it is getting worse denies falling denies known injury Related Data Home Medications Medication Instructions Recorded Confirmed calcium carbonate 600 mg-vitamin 1 tab PO DAILY Supplement 07/11/18 03/30/22 D3 10 mcg (400 unit) tablet (Calcium with Vitamin D) pravastatin 40 mg tablet 1 mg PO DAILY Cholesterol 90 days 07/11/18 03/30/22 calcipotriene 0.005 1 applic topical DAILY Arthritis 07/28/18 03/30/22 %-betametha
[2022-12-15 11:13] VITALS: BP 141/57; PULSE 68; RESP 20; TEMP 36.7; O2SAT 98
== END 2022-12-15 11:18 | disposition home or self-care (01) ==
PROVIDERS: Emergency Provider Nurse Practitioner; PCP Family Medicine
DX: S76.211A Strain of adductor muscle, fascia and tendon of right thigh, initial encounter (principal); M62.838 Other muscle spasm; F17.290 Nicotine dependence, other tobacco product, uncomplicated; X50.0XXA Overexertion from strenuous movement or load, initial encounter
CPT/HCPCS: 99212; 99214; G0463

== ENCOUNTER → 2022-12-21 14:23 | Outpatient (CLI) | payer MEDICARE, SELFPAY ==
--- NOTE | 2022-12-21 14:32 | XR_ITS ---
FINAL REPORT CLINICAL HISTORY: INGUINAL PAIN, no trauma, pain since last week COMPARISON: None FINDINGS: RIGHT HIP Two views of the right hip demonstrate no acute fracture or dislocation. The joint spaces appear normal. The visualized bony structures are well aligned. No soft tissue abnormality is seen. IMPRESSION: No acute bony abnormality. Reviewed, Interpreted and Dictated by Pranay Mota MD Transcribed by Chrissy Hernandez Authenticated and [facility]
== END ==
PROVIDERS: PCP Nurse Practitioner; Visit Provider Nurse Practitioner
DX: R10.30 Lower abdominal pain, unspecified (principal)
CPT/HCPCS: 73502

== ENCOUNTER → 2023-01-11 10:23 | Outpatient (CLI) | payer MEDICARE, SELFPAY ==
--- NOTE | 2023-01-11 10:33 | CT_ITS ---
FINAL REPORT TECHNIQUE: Axial images through the pelvis were performed by computed tomography. CLINICAL HISTORY: right groin pain FINDINGS: Pelvis: The appendix is normal in appearance. Sigmoid diverticulosis is present without evidence of acute inflammation. The urinary bladder is unremarkable. There is no free fluid or adenopathy. IMPRESSION: Diverticulosis of the sigmoid colon, without evidence of diverticulitis. Otherwise unremarkable CT of the pelvis. The appendix is normal in appearance. Reviewed, Interpreted and Dictated by Jae Coronado III, MD Transcribed by Chrissy Hernandez Authenticated and [facility]
== END ==
PROVIDERS: PCP Nurse Practitioner; Visit Provider Nurse Practitioner
DX: R10.30 Lower abdominal pain, unspecified (principal)
CPT/HCPCS: 72192

== ENCOUNTER 2023-01-18 09:56 | Emergency (ER) | payer MEDICARE, SELFPAY ==
[2023-01-18] VITALS (7 sets, daily range): BP systolic 130–151; BP diastolic 54–79; PULSE 70–77; RESP 16–20; TEMP 36.5; O2SAT 96–98; BMI 31.2
--- NOTE | 2023-01-18 10:04 | ECG_ITS ---
APPROVED REPORT Exam: Resting ECG HR:69 bpm ECG Measurements Heart Rate 69 AXES MA 148 P 61 QRSd 88 QRS 41 QT 376 T 69 QTc 395 Conclusion SINUS RHYTHM NORMAL ECG UNCONFIRMED REPORT Electronically signed by : Hai Quiles MD 01/18/2023 17:22:03
[2023-01-18 10:07] LABS: POC Glucose,Bedside 87 (70-110)
--- NOTE | 2023-01-18 10:12 | CT_ITS ---
FINAL REPORT TECHNIQUE: Thin section axial CT with IV contrast supplemented with multiplanar reconstruction under CT angiogram protocol. This study was performed with techniques to keep radiation doses as low as reasonably achievable (ALARA). Individualized dose reduction techniques using automated exposure control or adjustment of mA and/or kV according to the patient''s size were employed. NASCET criteria was utilized during interpretation. CLINICAL HISTORY: ataxia, dizziness, r/o stroke FINDINGS: Aortic arch: Arch shows no significant narrowing. Great vessel origins are widely patent. Calcified plaque is seen at the carotid bulbs bilaterally without significant stenosis. Right carotid: No significant stenosis is seen of the cervical common or internal carotid artery. Left carotid: No significant stenosis is seen of the cervical common or internal carotid artery. Vertebral: Right vertebral artery is dominant. No significant stenosis is present. IMPRESSION: No significant stenosis or occlusion. Reviewed, Interpreted and Dictated by Jae Coronado III, MD Transcribed by Yudith Cerrato Authenticated and [facility]
--- NOTE | 2023-01-18 10:12 | CT_ITS ---
FINAL REPORT TECHNIQUE: Thin section axial CT with IV contrast supplemented with multiplanar reconstruction under CT angiogram protocol. 3-D reconstructions were performed. This study was performed with techniques to keep radiation doses as low as reasonably achievable (ALARA). Individualized dose reduction techniques using automated exposure control or adjustment of mA and/or kV according to the patient''s size were employed. CLINICAL HISTORY: ataxia, dizziness, r/o stroke FINDINGS: The distal vertebral, basilar and distal internal carotid arteries have an unremarkable appearance. No aneurysm is seen. Major intracranial vessels are patent without significant stenosis. Reviewed, Interpreted and Dictated by Jae Coronado III, MD Transcribed by Yudith Cerrato Authenticated and [facility]
--- NOTE | 2023-01-18 10:12 | CT_ITS ---
FINAL REPORT CLINICAL HISTORY: ataxia, dizziness, r/o stroke COMPARISON: None FINDINGS: Axial images of the head were obtained without contrast. Coronal reformatted images were also obtained. This study was performed with techniques to keep radiation doses as low as reasonably achievable (ALARA). Individualized dose reduction techniques using automated exposure control or adjustment of mA and/or kV according to the patient's size were employed. There is no evidence of intracranial hemorrhage or mass. There are mild chronic ischemic changes. The ventricular size is within normal limits. There is no evidence of shift of the midline structures. No abnormal extra axial fluid collection is identified. No skull abnormality is seen on the bone window images. There are small osteomas in the left frontal sinus and left ethmoid region. IMPRESSION: No acute intracranial abnormality. Reviewed, Interpreted and Dictated by Jae Coronado III, MD Transcribed by Paula Gamino Authenticated and [facility]
--- NOTE | 2023-01-18 10:13 | XR_ITS ---
FINAL REPORT TECHNIQUE: Single view chest CLINICAL HISTORY: dyspnea COMPARISON: 01/08/2022 FINDINGS: A single view of the chest was obtained. The heart and mediastinum are within normal limits. The lungs are clear. There is no pneumothorax. Osseous structures are unremarkable. IMPRESSION: No acute cardiopulmonary process. Reviewed, Interpreted and Dictated by Jae Coronado III, MD Transcribed by Yudith Cerrato Authenticated and [facility]
--- NOTE | 2023-01-18 10:14 | PC.NURSE ---
RADIOLOGY NOTIFIED OF CT STROKE PROTOCOL
--- NOTE | 2023-01-18 10:15 | PC.NURSE ---
RADIOLOGY AT BEDSIDE
--- NOTE | 2023-01-18 10:16 | PC.NURSE ---
PT TO CT
--- NOTE | 2023-01-18 10:25 | HMH.EDGENADL ---
Discharge Plan Disposition Patient Disposition: Home, Self-Care Prescriptions Prescriptions: New meclizine 25 mg tablet 25 mg PO TID PRN (Reason: dizziness) Qty: 20 0RF No Action Enstilar 0.005-0.064 % foam 1 applic TOPICAL DAILY fluticasone propionate 50 mcg/actuation spray,suspension INTRANASAL etodolac 400 mg tablet 400 mg PO celecoxib 200 mg capsule 200 mg PO venlafaxine 37.5 mg capsule,extended release 24hr 37.5 mg PO certolizumab pegol 400 mg (200 mg x 2 vials) kit 200 mg SQ Q4W azithromycin [Zithromax Z-Juan] 250 mg tablet See Rx Instructions PO .COMPLEX Qty: 6 0RF Rx Instructions: For 250 mg dose pack: take 500 mg today (day 1), then 250 mg for 4 days (days 2-5) PO pravastatin 40 mg tablet 1 mg PO DAILY 90 Days calcium carbonate-vitamin D3 [Calcium with Vitamin D] 600 mg(1,500mg) -400 unit tablet 1 tab PO DAILY fluticasone propionate 50 mcg/actuation blister with device 1 inh INHALATION BID esomeprazole magnesium 40 MG capsule,delayed release(DR/EC) 40 mg PO DAILY tizanidine 2 mg capsule 2 mg PO Q8H PRN (Reason: muscle spasticity) Qty: 20 0RF methylprednisolone [Medrol (Juan)] 4 mg tablets,dose pack See Rx Instructions .Route .COMPLEX 6 Days Qty: 21 0RF Rx Instructions: taper pack; aspirin 81 mg Tablet,Chewable 81 mg PO DAILY rosuvastatin 20 mg tablet 20 mg PO DAILY Referrals Follow up/Referrals: Amarilys Duff MD [Primary Care Provider] - See instructions Activity Restrictions/Add. Instructions Additional Instructions/Restrictions: Your CAT scans of your head and neck and MRI of your head did not demonstrate any posterior fossa or posterior circulation abnormality that would be the cause of your dizziness/vertigo/coordination problems today. At this point this is most likely a peripheral cause of your vertigo and should be self-limiting. Please take your meclizine as needed follow-up with primary care doctor to discuss if your symptoms or not improving. Clinical Impressions Clinical Impression: Dizziness Discharge ED Provider: Burke Herrera General Adult [facility] General Chief complaint: Dizziness Stated complaint: nausa Time Seen by Provider: 10/16/23 09:58 Mode of Arrival: Ambulatory Source of Information: Patient Limitations: No Limitations Description of Symptoms (Recalled from ER Triage Doc. by RN): Pt reports dizziness upon waking up yesterday morning approx 0800. Reports dizziness went away after a couple of hours. Pt reports dizziness returned this morning up on waking up. States she feels off balance and as if things are spinning. Pt reports symptoms are worse when moving around. History of Present Illness HPI narrative: Patient is a 72-year-old female presented today with dizziness and loss of balance. States this began yesterday for several hours and spontaneously resolved the patient then went to bed and woke up this morning with significant dizziness upon waking. States that she has no significant rotary sensation most the time that she is unsure as to whether or not this is worsened with movement. In particular she notices when she is trying to walk and she states she is been very off balance almost falling having to hold onto things to be able to stand. She denies any acute change in vision but has chronic right-sided visual loss from central retinal artery occlusion in the past. She takes daily aspirin is not on any other anticoagulants or antiplatelet medications. She denies any headache or neck pain. She denies any numbness weakness tingling in her arms or legs or any other neurologic symptoms at this point. She denies any ear pain or recent ear infections. Related Data Home Medications Medication Instructions Recorded Confirmed calcium carbonate 600 mg-vitamin 1 tab PO DAILY Supplement 07/11/18 03/30/22 D3 10 mcg (400 unit) tablet (Calcium with Vitamin D)
[2023-01-18 10:29] LABS: Alanine Aminotransferase 33 U/L (12-78); Albumin Level 4.1 g/dl (3.5-5.0); Albumin/Globulin Ratio 1.2 (1.1-1.8); Alkaline Phosphatase 85 U/L (38-126); Anion Gap 8.8 mEq/L (5-15); Aspartate Amino Transferase 35 U/L (14-36); Bilirubin,Total 0.3 mg/dl (0.2-1.3); Blood Urea Nitrogen 27 mg/dl (7-17); Calcium 9.2 mg/dl (8.4-10.2); Carbon Dioxide 37 mmol/L (22.0-30.0); Chloride 103 mmol/L (98-107); Creatinine Clearance Estimated 68 mL/min (50-200); Estimated Glomerular Filt Rate 62 ml/min (>60); GFR (African American) 75 ML/MIN (>60); Globulin 3.4 g/dL (1.3-3.2); Glucose 89 mg/dl (74-100); Potassium 3.8 mmoL/L (3.5-5.1); Sodium 145 mmol/L (136-145); Total Protein,Serum 7.5 g/dl (6.3-8.2)
[2023-01-18 10:43] LABS: Troponin I < 0.01 ng/ml (0.00-0.034)
[2023-01-18 10:46] LABS: Basophils # 0.1 K/mm3 (0-0.2); Basophils % 0.7 % (0.1-2.0); Eosinophils # 0.2 K/mm3 (0.0-0.4); Eosinophils % 2.6 % (0.1-12.0); Hematocrit 42.8 % (37.0-47.0); Hemoglobin 14.1 g/dL (12.2-16.2); Lymphocytes # 2.8 K/mm3 (0.7-4.5); Mean Corpuscular HGB Conc 32.9 g/dL (31.8-35.4); Mean Corpuscular Hemoglobin 28.1 pg (27.0-31.2); Mean Corpuscular Volume 85.6 fl (81-99); Monocytes # 0.6 K/mm3 (0.1-1.0); Monocytes % 6.3 % (1.7-9.3); Neutrophils # 5.1 K/mm3 (1.8-7.8); Neutrophils % 58.4 % (37.0-80.0); Platelet Count 371 K/mm3 (142-424); Red Cell Distribution Width 14.6 % (11.5-17.5); White Blood Count 8.7 K/mm3 (4.8-10.8)
[2023-01-18 10:52] LABS: Activated Partial Thrombo Time 29.1 seconds (22.8-30.6); INR 0.93 (0.9-1.1); Prothrombin Time 10.1 seconds (10.1-12.5)
--- NOTE | 2023-01-18 10:54 | PC.NURSE ---
Helped pt find channel [address] on tv no other needs at this time,call light at bs
--- NOTE | 2023-01-18 11:31 | PC.NURSE ---
DR ESTRADA AT BEDSIDE TO REEVALUATE PT
--- NOTE | 2023-01-18 11:33 | PC.NURSE ---
DR ESTRADA SPEAKING WITH DR KING FOR ADMISSION
--- NOTE | 2023-01-18 11:42 | MR_ITS ---
FINAL REPORT CLINICAL HISTORY: ataxia, DIZZINESS 17ML PROHANCE INJECTED COMPARISON: None FINDINGS: Multiplanar MR imaging of the brain was performed without and with contrast. There is no evidence of intracranial hemorrhage or mass. No abnormal extra-axial fluid collection is seen. There is age-appropriate atrophy. There are moderate chronic ischemic changes. The ventricular size is within normal limits. There is no evidence of shift of the midline structures. The posterior fossa and brainstem have an unremarkable appearance. No area of abnormal restricted diffusion is identified. No abnormal contrast enhancement is seen. Normal major vessel vascular flow voids are noted. IMPRESSION: No acute intracranial abnormality identified. Reviewed, Interpreted and Dictated by Jae Coronado III, MD Transcribed by Paula Gamino Authenticated and [facility]
--- NOTE | 2023-01-18 11:43 | PC.NURSE ---
dr. herrera requesting MRI brain on pt to r/o stroke. Spoke with Becca in MRI states she does have availability to do MRI at this time. Spoke with Lianet in care management- Dr. Herrera requesting MRI brain with and without contrast, states okay to do. Notified Becca care management approved MRI, states she will be down to get pt.
--- NOTE | 2023-01-18 11:56 | PC.NURSE ---
PT TO MRI
--- NOTE | 2023-01-18 12:45 | PC.NURSE ---
pt light was turned off and gave her purse no other needs, call light at bs
--- NOTE | 2023-01-18 13:37 | PC.NURSE ---
DR ESTRADA AT BEDSIDE TO UPDATE PT
--- NOTE | 2023-01-18 13:37 | PC.NURSE ---
pt given soft drink
== END 2023-01-18 13:51 | disposition home or self-care (01) ==
PROVIDERS: Emergency Provider Student in an Organized Health Care Education/Training Program; PCP Family Medicine
DX: R42 Dizziness and giddiness (principal); R26.0 Ataxic gait; H34.11 Central retinal artery occlusion, right eye
CPT/HCPCS: 70450; 70496; 70498; 70553; 71045; 80053; 82962; 84484; 85025; 85610; 85730; 93005; 96361; 96374; 99285; A9576; Q9967

== ENCOUNTER → 2023-03-02 07:23 | Outpatient (CLI) | payer MEDICARE, SELFPAY ==
--- NOTE | 2023-03-02 07:25 | MR_ITS ---
FINAL REPORT CLINICAL HISTORY: . RIGHT SIDED GROIN PAIN X2.5MONTHS AGO. NO INJURY OR TRAUMA COMPARISON: None FINDINGS: MR RIGHT HIP TECHNIQUE: Multiplanar MR without gadolinium enhancement. FINDINGS: ARTICULAR CARTILAGE: No focal defects. MARROW SIGNAL: There is bilateral avascular necrosis, more prominent on the right side than the left side, involving greater than 50% of the weightbearing surface of the involved hip. There is bone marrow edema in the right femoral head and neck, likely reactive. JOINT FLUID: A moderate size joint effusion is identified. ADJACENT SOFT TISSUES: Unremarkable. LABRUM: No labral tear is identified. IMPRESSION: Bilateral avascular necrosis, greater on the right than on the left, involving greater than 50% of the weightbearing surface of the hips. Bilateral right head and neck bone marrow edema of the hip, likely reactive. Moderate joint effusion. Reviewed, Interpreted and Dictated by Charley Roque MD Transcribed by Chrissy Hernandez Authenticated and [facility]
== END ==
PROVIDERS: PCP Family Medicine; Visit Provider Nurse Practitioner
DX: M25.551 Pain in right hip (principal)
CPT/HCPCS: 73721

== ENCOUNTER 2023-04-29 09:33 | Outpatient (CLI) | payer MEDICARE, SELFPAY ==
[2023-05-01 08:20] LABS: Miscellaneous Test SCANNED IMAGE
== END 2023-04-29 23:59 ==
LOC: LAB 09:35
PROVIDERS: PCP Family Medicine; Visit Provider Orthopaedic Surgery
DX: Z01.818 Encounter for other preprocedural examination (principal)

== ENCOUNTER 2023-08-20 09:31 | Outpatient (CLI) | payer MEDICARE, SELFPAY ==
[2023-08-24 13:30] LABS: QuantiFERON-TB Gold Plus Negative (Negative)
== END 2023-08-20 23:59 | disposition home or self-care (01) ==
LOC: LAB 09:32
PROVIDERS: PCP Family Medicine; Visit Provider Internal Medicine
DX: L40.50 Arthropathic psoriasis, unspecified (principal)
CPT/HCPCS: 36415; 86480

== ENCOUNTER 2023-10-12 11:00 | Outpatient (RCR) | payer MEDICARE, SELFPAY | END 2023-10-12 12:15 | disposition home or self-care (01) | LOC: PT 11:00 | PROVIDERS: Visit Provider Orthopaedic Surgery | DX: M25.551 Pain in right hip (principal) | CPT/HCPCS: 97110; 97112; 97163; 97164; 97530 ==

== ENCOUNTER 2023-10-13 08:20 | Outpatient (CLI) | payer MEDICARE, SELFPAY ==
--- NOTE | 2023-10-13 08:26 | XR_ITS ---
FINAL REPORT CLINICAL HISTORY: TENDONITIS.....SHOULDER PAIN COMPARISON: None FINDINGS: RIGHT SHOULDER 3 views demonstrate no acute fracture or dislocation. There is mild degenerative change in the AC joint and glenohumeral joint. There is chronic deformity of the humeral head. The visualized bony structures are well aligned. No soft tissue abnormality is seen. IMPRESSION: Degenerative/chronic changes without acute process. Reviewed, Interpreted and Dictated by Jae Coronado III, MD Transcribed by Paula Gamino Authenticated and [facility]
== END 2023-10-13 23:59 | disposition home or self-care (01) ==
LOC: RAD 08:21
PROVIDERS: PCP Nurse Practitioner; Visit Provider Nurse Practitioner
DX: M25.511 Pain in right shoulder (principal); M77.9 Enthesopathy, unspecified
CPT/HCPCS: 73030

== ENCOUNTER 2024-02-23 08:33 | Day surgery (SDC) | payer MEDICARE, SELFPAY ==
[2024-02-22 09:23] VITALS: BMI 31.6
[2024-02-23 09:01] VITALS: BP 139/99; PULSE 75; RESP 16; TEMP 36.6; O2SAT 96
[2024-02-23] MEDS: LACTATED RINGERS 1000ML 1,000 ML 25 ML IV (09:01)
--- NOTE | 2024-02-23 09:47 | P.PNANES_ITS ---
[facility] Disclaimer: The information contained in this section may have been updated after the patient was seen, as this information can be updated by other users. Medical History Psoriatic arthritis History of cataract Leaky heart valve Pulmonary nodule Sternal fracture Cervical radiculopathy Spinal stenosis in cervical region Degenerative joint disease of cervical spine History of breast cancer YVONNE (obstructive sleep apnea) Surgical History History of right hip replacement History of tonsillectomy History of cholecystectomy History of colonoscopy History of lung biopsy S/P mastectomy, bilateral Family History Other Coronary artery disease Hypertension Social History Smoking Status: Former smoker tobacco type: e-cigarettes alcohol intake: never substance use type: denies use current occupational status: retired and other Travel in the last 8 weeks: None household members: spouse housing: house marital status: caffeine: Yes [facility] Anesthesia Checklist Patient Identification Patient Identification: Arm Band Structural Data Admitted From: Home Planned Operative Procedure/s: Colonoscopy Consent for Planned Operative Procedure(s) Verified: Yes Verified Documents: Surgical Consent and History and Physical NPO Status Verified Time NPO: 00:00 Additional verifications Anesthesia Reactions: No Hx Blood Transfusions: No Airway Assessment Mallampati Score:: Class II C-Spine Mobility Assessed: Yes TMJ Mobility Assessed: Yes Dentition: Good Dentition (lower partial removed) Neurological Assessment Level of Consciousness: Awake, Alert and Appropriate Anesthesia Plan Anesthesia Risk discussed: Yes Anesthesia Plan: Verified ASA Class: III Anesthesia Type: MAC
[2024-02-23 09:59] VITALS: O2SAT 100
--- NOTE | 2024-02-23 10:07 | EXP.HP ---
History of Present Illness *Admission Date: 02/23/24 *Reason for visit:: Screening *History of present illness: Mrs. Santiago is a 73-year-old female who is here for screening colonoscopy. Her last colonoscopy was 10 years ago. The examination is deemed medically necessary for screening colonoscopy. The patient has been seen, interviewed and examined prior to the procedure by both myself and the anesthesia provider. [facility] Disclaimer: The information contained in this section may have been updated after the patient was seen, as this information can be updated by other users. Medical History (Updated 02/23/24 @ 10:08 by Reynold Nix II, MD) Psoriatic arthritis History of cataract Leaky heart valve Pulmonary nodule Sternal fracture Cervical radiculopathy Spinal stenosis in cervical region Degenerative joint disease of cervical spine History of breast cancer YVONNE (obstructive sleep apnea) Surgical History History of right hip replacement History of tonsillectomy History of cholecystectomy History of colonoscopy History of lung biopsy S/P mastectomy, bilateral Family History Other Coronary artery disease Hypertension Social History Smoking Status: Former smoker tobacco type: e-cigarettes alcohol intake: never substance use type: denies use current occupational status: retired and other Travel in the last 8 weeks: None household members: spouse housing: house marital status: caffeine: Yes Other Medical History Have you received the Flu Vaccine for this season: Yes Have you received the Pneumonia Vaccine: Yes Review of Systems Review of Systems Review of systems (narrative): Negative *Cardiovascular Comments: Negative *Gastrointestinal Comments: Negative *Genitourinary Comments: Negative *Musculoskeletal Comments: Negative *Neurologic Comments: Negative Meds Home Medications and Allergies Home Medications ?Medication ?Instructions ?Recorded ?Confirmed ?Type calcium 600 mg (as 1 tab PO DAILY Supplement 07/11/18 02/23/24 History carbonate)-vitamin D3 10 mcg (400 unit) tablet (Calcium with Vitamin D) calcipotriene 0.005 1 applic topical DAILY Arthritis 07/28/18 02/23/24 History %-betamethasone 0.064 % topical foam (Enstilar) fluticasone propionate 50 1 inh inhalation BID SOA 02/06/19 02/23/24 History mcg/actuation blister powder for inhalation esomeprazole magnesium 40 mg 40 mg PO DAILY stomach 11/03/19 02/23/24 History capsule,delayed release fluticasone propionate 50 1 spray intranasal DAILY 06/30/21 02/23/24 History mcg/actuation nasal spray,suspension tizanidine 2 mg capsule 2 mg PO Q8H PRN muscle spasticity 12/15/22 02/23/24 Rx #20 caps aspirin 81 mg chewable tablet 81 mg PO DAILY post cva 01/18/23 02/23/24 History meclizine 25 mg tablet 25 mg PO TID PRN dizziness #20 tabs 01/18/23 02/23/24 Rx rosuvastatin 20 mg tablet 20 mg PO DAILY Cholesterol 01/18/23 02/23/24 History diazepam 2 mg tablet 2 mg PO DIRECTED PRN Anxiety 08/17/23 02/23/24 History furosemide 20 mg tablet 20 mg PO . 08/17/23 02/23/24 History loratadine 10 mg tablet 10 mg PO DAILY 08/17/23 02/23/24 History prednisone 5 mg tablet 5 mg PO DAILY 08/17/23 02/23/24 History duloxetine 20 mg capsule,delayed 20 mg PO DAILY 08/26/23 02/23/24 History release fluconazole 150 mg tablet 150 mg PO Q3D 1 dose #1 tab 09/02/23 02/23/24 Rx risankizumab-rzaa 150 mg/mL 150 mg SQ Q4M 02/22/24 02/23/24 History subcutaneous pen injector (Luly) tramadol 50 mg tablet 50 mg PO Q8HP PRN Pain 02/22/24 02/23/24 History New Prescriptions to Start Prescriptions: Allergies Allergy/AdvReac Type Severity Reaction Status Date / Time itraconazole (ITRACONAZOLE) Allergy Intermediate I-RASH Verified 02/23/24 08:57 Exam Data for Last 24 hours Vital signs and Labs for Last 24 Hours: Temp Pulse Resp BP Pulse Ox O2 Del Method 97.8 F 75 16 139/99 H 96 Room Air 02/23/24 09:01 02/23/24 09:01 02/23/24 09:01 02/23/24 09:01 02/23/24 09:01 02/23/24 09:01 I & O for Last 24 hours: Intake & Output 02/20/24 02/21/24 02/22/24 02/23/24 23:59 23:59 23:59 23:59 Weight 184 lb *Routine HEENT Exam Head: Present normocephalic Eye: Present EOMI and PERRL ENT: Present mucous membranes moist *Routine Neck Exam Neck: Present supple *Routine Respiratory Exam Respiratory: Present CTA bilaterally *Routine Cardiovascular Exam Cardiovascular: Present RRR *Routine Abdominal Exam Abdominal: Present soft and normoactive bowel sounds; Absent tenderness *Routine Rectal Exam Rectal:: deferred *Routine Genitalia Exam Genitalia:: deferred *Routine Extremities Exam Extremities: Absent cyanosis, clubbing or edema *Routine Skin Exam Skin: Present warm; Absent rash *Routine Neurological Exam Neurological: Present alert and oriented X3 Assessment and Plan *Assessment and plan (1) Screening for colon cancer: Status: Acute Category: Medical Code(s): Z12.11 - Encounter for screening for malignant neoplasm of colon Plan A/P: 1. Screening for colon cancer is the preprocedural diagnosis. The patient will be anesthetized/sedated using MAC sedation. The patient has been seen and examined. Cardiac and lung assessment prior to the examination is stable. Proceed with planned colonoscopy
--- NOTE | 2024-02-23 10:09 | P.PCN_ITS ---
[facility] Procedure Note Date: 02/23/24 Time: 10:27 Procedure Note:: Colonoscopy Procedure Report: Colonoscopy with cold snare polypectomy Endoscopist: Reynold Nix II, MD Referring physician: Sherif Duff M.D. Date of Procedure: February 23, 2024 Equipment: Olympus 190 variable stiffness pediatric colonoscope Sedation: MAC sedation Indication: Mrs. Santiago is a 73-year-old female who is here for screening colonoscopy. Her last colonoscopy was 10 years ago and was normal. She reports no abdominal pain, weight loss, change in her bowel habits or rectal bleeding. She reports no family history of colon cancer. Procedure: Prior to the procedure, a history and physical exam was performed, and patient's medications and allergies were reviewed. The risks, benefits and alternatives of the sedation and procedure were discussed with the patient. All questions were answered and informed consent was obtained. The patient was brought to the procedure room. Patient identification and proposed procedure were verified by the physician and the nurse. The patient was placed in a left lateral decubitus position and the scope was passed under direct vision. Throughout the procedure, the patient's blood pressure, pulse, and oxygen saturations were monitored continuously. The colonoscopy was accomplished without difficulty. The patient tolerated the procedure well. Findings: On digital rectal examination there was normal rectal tone. There were no external hemorrhoids. The colonoscope was introduced through the anal canal to the rectum and advanced to the cecum. The ileocecal valve and appendiceal orifice were identified. The scope was advanced a short distance into the ileum which appeared grossly normal. The scope was then withdrawn into the colon. There were 3 polyps (ascending x 2 (4 and 6 mm) and descending x 1 (3 mm)). These were all removed via cold snare polypectomy. The remaining cecum, ascending and transverse colon and mucosa were grossly normal. There were scattered diverticuli throughout the descending and sigmoid colon (LEFT colon). The rectum itself was normal with smaller rectal vault. Upon retroflexion within the rectum there were small grade 0?1 internal hemorrhoids. The preparation was excellent throughout with Mitchell Preparation Score of 9. The cecal time was 11 minutes. Impression: 1. Diminutive colonic polyps x 3 2. Left-sided diverticulosis 3. Grade 0?1 internal hemorrhoids Plan: I will follow-up the polyp histology and recommend repeat surveillance colonoscopy again in 5 to 7 years based upon the pathology. I would encourage psyllium fiber supplementation on a maintenance basis.
[2024-02-23 10:32] VITALS: BP 160/77; PULSE 75; RESP 16; TEMP 36.8; O2SAT 100
[2024-02-23 10:42] VITALS: BP 191/72; PULSE 70; RESP 16; O2SAT 98
[2024-02-23 10:52] VITALS: BP 163/88; PULSE 73; RESP 18; O2SAT 98
[2024-02-23 11:02] VITALS: BP 160/81; PULSE 76; RESP 18; O2SAT 97
== END 2024-02-23 11:02 | disposition home or self-care (01) ==
PROVIDERS: PCP Family Medicine; Visit Provider Internal Medicine Gastroenterology
PROC: (CPT 45385; principal; 2024-02-23 10:00)
DX: Z12.11 Encounter for screening for malignant neoplasm of colon (principal); K63.5 Polyp of colon; K57.30 Diverticulosis of large intestine without perforation or abscess without bleeding; K64.8 Other hemorrhoids
CPT/HCPCS: 45385; 88305; J7120

== ENCOUNTER 2024-03-22 13:40 | Outpatient (RCR) | payer MEDICARE, SELFPAY | END 2024-03-22 23:59 | disposition home or self-care (01) | LOC: OT 13:40 | PROVIDERS: PCP Family Medicine; Visit Provider Orthopaedic Surgery | DX: M25.512 Pain in left shoulder (principal); Z98.890 Other specified postprocedural states | CPT/HCPCS: 97165 ==

== ENCOUNTER 2024-03-26 15:56 | Emergency (ER) | payer MEDICARE, SELFPAY ==
[2024-03-26 17:40] VITALS: BP 142/70; PULSE 74; RESP 19; TEMP 37; O2SAT 95; BMI 32.5
--- NOTE | 2024-03-26 17:53 | EXP.UTC ---
Discharge Plan Disposition Patient Disposition: Home, Self-Care Condition: Good Prescriptions Prescriptions: No Action Enstilar 0.005-0.064 % foam 1 applic TOPICAL DAILY fluticasone propionate 50 mcg/actuation spray,suspension 1 spray INTRANASAL DAILY calcium carbonate-vitamin D3 [Calcium with Vitamin D] 600 mg(1,500mg) -400 unit tablet 1 tab PO DAILY fluticasone propionate 50 mcg/actuation blister with device 1 inh INHALATION BID duloxetine 20 mg capsule,delayed release(DR/EC) 20 mg PO DAILY furosemide 20 mg tablet 20 mg PO . Rx Instructions: Every other day prednisone 5 mg tablet 5 mg PO DAILY diazepam 2 mg tablet 2 mg PO DIRECTED PRN (Reason: Anxiety) loratadine 10 mg tablet 10 mg PO DAILY fluconazole 150 mg tablet 150 mg PO Q3D Qty: 1 0RF esomeprazole magnesium 40 MG capsule,delayed release(DR/EC) 40 mg PO DAILY tramadol 50 mg tablet 50 mg PO Q8HP PRN (Reason: Pain) Skyrizi 150 mg/mL Pen Injector 150 mg SQ Q4M tizanidine 2 mg capsule 2 mg PO Q8H PRN (Reason: muscle spasticity) Qty: 20 0RF aspirin 81 mg Tablet,Chewable 81 mg PO DAILY rosuvastatin 20 mg tablet 20 mg PO DAILY meclizine 25 mg tablet 25 mg PO TID PRN (Reason: dizziness) Qty: 20 0RF Referrals Follow up/Referrals: Amarilys Duff MD [Primary Care Provider] - See instructions Activity Restrictions/Add. Instructions Additional Instructions/Restrictions: Mucinex as discussed to help with chest congestion Follow up with your Family Doctor as discussed Over the counter Robitussin if you can take it may help with your cough Cool mist Humidifer may help with cough and nasal congstion Straight to ER if any life threatening symtoms Clinical Impressions Clinical Impression: Viral syndrome Instructions Patient Instructions: Cough, DI for COVID-19 (Suspected or Confirmed ) Print Language Print Language: S[place] Discharge ED Provider: Lorri Ashby [facility] HPI General Stated complaint: SOA,cough,headache,sore throat Mode of Arrival: Ambulatory Source of Information: Patient Limitations: No Limitations Time Seen by Provider: 03/26/24 17:53 Description of Symptoms (Recalled from Triage Doc. by RN): PATIENT C/O COUGH SINCE WEDNESDAY. SHE STATES SHE TESTED POSITIVE FOR COVID ON WEDNESDAY HEENT Symptoms (Recalled from RN notes): No Resp Symptoms (Recalled from RN notes): Yes Skin Symptoms (Recalled from RN notes): No MS Symptoms (Recalled from RN notes): No Functional Status (Recalled from RN notes): WNL History of Present Illness Provider Complaint: Patient states that she seen her PCP last week and they prescribed her some cough medication and tested her for COVID on Wednesday States that initially she tested negative for COVID then on Wednesday she tested positive states that she is out of the cough medication that they prescribed her and is needing more Related Data Home Medications ?Medication ?Instructions ?Recorded ?Confirmed calcium 600 mg (as 1 tab PO DAILY Supplement 07/11/18 02/23/24 carbonate)-vitamin D3 10 mcg (400 unit) tablet (Calcium with Vitamin D) calcipotriene 0.005 1 applic topical DAILY Arthritis 07/28/18 02/23/24 %-betamethasone 0.064 % topical foam (Enstilar) fluticasone propionate 50 1 inh inhalation BID SOA 02/06/19 02/23/24 mcg/actuation blister powder for inhalation esomeprazole magnesium 40 mg 40 mg PO DAILY stomach 11/03/19 02/23/24 capsule,delayed release fluticasone propionate 50 1 spray intranasal DAILY 06/30/21 02/23/24 mcg/actuation nasal spray,suspension aspirin 81 mg chewable tablet 81 mg PO DAILY post cva 01/18/23 02/23/24 rosuvastatin 20 mg tablet 20 mg PO DAILY Cholesterol 01/18/23 02/23/24 diazepam 2 mg tablet 2 mg PO DIRECTED PRN Anxiety 08/17/23 02/23/24 furosemide 20 mg tablet 20 mg PO . 08/17/23 02/23/24 loratadine 10 mg tablet 10 mg PO DAILY 08/17/23 02/23/24 prednisone 5 mg tablet 5 mg PO DAILY 08/17/23 02/23/24 duloxetine 20 mg capsule,delayed 20 mg PO DAILY 08/26/23 02/23/24 release risankizumab-rzaa 150 mg/mL 150 mg SQ Q4M 02/22/24 02/23/24 subcutaneous pen injector (Luly) tramadol 50 mg tablet 50 mg PO Q8HP PRN Pain 02/22/24 02/23/24 Previous Rx's ?Medication ?Instructions ?Recorded tizanidine 2 mg capsule 2 mg PO Q8H PRN muscle spasticity 12/15/22 #20 caps meclizine 25 mg tablet 25 mg PO TID PRN dizziness #20 tabs 01/18/23 fluconazole 150 mg tablet 150 mg PO Q3D 1 dose #1 tab 09/02/23 Allergies Allergy/AdvReac Type Severity Reaction Status Date / Time itraconazole (ITRACONAZOLE) Allergy Intermediate I-RASH Verified 02/23/24 08:57 Worker's Comp Is this a Worker's Comp case?: No [facility] Disclaimer: The information contained in this section may have been updated after the patient was seen, as this information can be updated by other users. Medical History (Updated 03/26/24 @ 18:01 by Lorri Ashby APRN) Psoriatic arthritis History of cataract Leaky heart valve Pulmonary nodule Sternal fracture Cervical radiculopathy Spinal stenosis in cervical region Degenerative joint disease of cervical spine History of breast cancer YVONNE (obstructive sleep apnea) Surgical History History of right hip replacement History of tonsillectomy History of cholecystectomy History of colonoscopy History of lung biopsy S/P mastectomy, bilateral Family History Other Coronary artery disease Hypertension Social History Smoking Status: Former smoker tobacco type: e-cigarettes alcohol intake: never substance use type: denies use current occupational status: retired and other Travel in the last 8 weeks: None household members: spouse housing: house marital status: caffeine: Yes Have you lived/traveled outside US in past 30 days?: No Contact w/someone who lives/traveled outside US past 30 days?: No Exposure to someone with infectious disease in past 14 days?: No Do you have a fever (greater than 100.4 F or 38 C)?: Yes Have you tested positive for COVID-19: No Exposed to someone with COVID-19 in past 14 days?: No Do you have a sore throat?: Yes Do you have a cough?: Yes Do you have any weakness?: Yes Do you have any diarrhea?: No Are you experiencing any unusual bleeding?: No Do you have any muscle aches/pain?: Yes Do you have any abdominal pain?: No Are you experiencing loss of taste or smell?: No ROS Obtained: Yes All systems reviewed & no additional complaints except as documented and Yes Systems reviewed as appropriate & no additional complaints except as documented Constitutional Constitutional: Reports system reviewed and no additional complaints, except as documented, Reports as per HPI, Reports body ache and Reports chills ENT Ears, Nose, Mouth, and Throat: Reports system reviewed and no additional complaints, except as documented and Reports as per HPI Cardiovascular Cardiovascular: Reports system reviewed and no additional complaints, except as documented and Reports as per HPI Respiratory Respiratory: Reports system reviewed and no additional complaints, except as documented, Reports as per HPI and Reports cough Gastrointestinal Gastrointestingal: Reports system reviewed and no additional complaints, except as documented and as per HPI Physical Exam General General appearance: alert and in no apparent distress ENT ENT exam: Present normal exam, normal oropharynx and mucous membranes moist Respiratory Respiratory exam: Present normal lung sounds bilaterally and other (reports wheezing at times no wheezing noted at this time); Absent respiratory distress or wheezes Cardiovascular Cardiovascular exam: Present regular rate, normal rhythm and normal heart sounds Neurological Exam Neurological exam: Present alert, oriented X3 and normal gait Medical Decision Making Medical Records Screening: Per USPSTF and CDC recommendations, given the prevalence of disease in our region, it is our hospital?s policy to screen for HIV and viral Hepatitis for all patients aged 18 and over and those with ongoing risk factors. Bob Inquiry Pt receiving controlled substance: No Bob was queried for this patient: No Vital Signs: 03/26/24 17:40 Temperature 98.6 F Temperature Source Oral Pulse Rate [Left Brachial] 74 Respiratory Rate 19 Blood Pressure [Left Arm] 142/70 H Blood Pressure Mean [Left Arm] 94 Blood Pressure Source [Left Arm] Automatic Cuff Blood Pressure Position [Left Arm] Sitting 02 Sat by Pulse Oximetry 95 Oxygen Delivery Method Room Air Medical Decision Narrative: Patient no respiratory distress talking in complete sentences States that she wanted a refill on her cough medication she is almost out, patient was prescribed cough medication with hydrocodone explained to patient that I cannot prescribe that medication due to I do not have a LEAH offered other choices in cough medication including but not limited too Tessalone Perrles and she declined states she will call her PCP in the morning to see if they will give her a refill Discussed CXR due to cough and chest congestion and she declined
[2024-03-26 18:04] VITALS: BP 142/70; PULSE 74; RESP 19; TEMP 37; O2SAT 95
== END 2024-03-26 18:07 | disposition home or self-care (01) ==
PROVIDERS: Emergency Provider Nurse Practitioner; PCP Family Medicine
DX: B34.9 Viral infection, unspecified (principal)
CPT/HCPCS: 99213; G0381

== ENCOUNTER 2024-05-04 14:00 | Outpatient (RCR) | payer MEDICARE, SELFPAY | END 2024-05-04 23:59 | disposition home or self-care (01) | LOC: OT 14:00 | PROVIDERS: PCP Family Medicine; Visit Provider Orthopaedic Surgery | DX: Z98.890 Other specified postprocedural states (principal) | CPT/HCPCS: 97014; 97110; 97140; 97168; 97530; G0283 ==

== ENCOUNTER 2024-06-01 14:00 | Outpatient (RCR) | payer MEDICARE, SELFPAY | END 2024-06-01 23:59 | disposition home or self-care (01) | LOC: OT 14:00 | PROVIDERS: PCP Family Medicine; Visit Provider Orthopaedic Surgery | DX: M25.512 Pain in left shoulder (principal); Z98.890 Other specified postprocedural states | CPT/HCPCS: 97014; 97110; 97140; 97168; G0283 ==

== ENCOUNTER 2024-06-28 10:56 | Outpatient (CLI) | payer MEDICARE, SELFPAY ==
[2024-06-28 11:04] LABS: Microscopic, Urine URINE MICROSCOPIC (MICROSCOPIC)
[2024-06-28 11:45] LABS: Chol/HDL Ratio 2.6 (1-3.5); Cholesterol 155 mg/dl (140-200); HDL Cholesterol 59 mg/dl (40-60); Triglycerides 100 mg/dl (30-150); VLDL Cholesterol 20 mg/dL (0-40)
[2024-06-28 11:56] LABS: Direct LDL Cholesterol 67.72 mg/dL (100-129)
[2024-06-28 12:36] LABS: Appearance,Urine SL CLOUDY (Clear); Bilirubin,Urine Negative (Negative); Blood, Urine SMALL (Negative); Color,Urine YELLOW (Yellow); Glucose,Urine (UA) Negative (Negative); Ketones,Urine Negative (Negative); Leukocyte Esterase,Urine MODERATE (Negative); Nitrate,Urine POSITIVE (Negative); Protein,Urine 30 (Negative); Urobilinogen,Urine 0.2 EU/dl (0.2)
[2024-06-28 12:55] LABS: Bacteria,Urine 3+ /lpf; RBC,Urine Occasional #/hpf (0-3); WBC,Urine 20-50 #/hpf (0-3)
== END 2024-06-28 23:59 | disposition home or self-care (01) ==
LOC: LAB 10:57
PROVIDERS: PCP Internal Medicine; Visit Provider Internal Medicine
DX: R30.0 Dysuria (principal); Z13.220 Encounter for screening for lipoid disorders
CPT/HCPCS: 36415; 80061; 81001; 87086; 87088; 87186

== ENCOUNTER 2024-06-30 13:00 | Outpatient (RCR) | payer MEDICARE, SELFPAY | END 2024-06-30 23:59 | disposition home or self-care (01) | LOC: OT 13:00 | PROVIDERS: PCP Family Medicine; Visit Provider Orthopaedic Surgery | DX: Z98.890 Other specified postprocedural states (principal); Z96.612 Presence of left artificial shoulder joint | CPT/HCPCS: 97014; 97110; 97140; 97168; 97530; G0283 ==

== ENCOUNTER 2024-07-03 13:04 | Outpatient (CLI) | payer MEDICARE, SELFPAY ==
--- NOTE | 2024-07-03 13:15 | XR_ITS ---
FINAL REPORT TECHNIQUE: Bone densitometry calculations of the lumbar spine and left hip were obtained. CLINICAL HISTORY: Osteopenia/Osteoporosis COMPARISON: 07/13/2022 FINDINGS: Using L1-4, the bone mineral density of the spine is 0.989 g/cm2, corresponding to T-score of -0.5. Using the left hip, the bone mineral density of the femoral neck is 0.787 g/cm2, corresponding to a T-score of -1.3. Using the left forearm, the bone mineral density of the mid is 0.540 g/cm?, corresponding to a T-score of -2.6 NOTE: T-score: Standard deviation compared with peak bone mass of young adult mean. *Following the recommendations of the International Society of Bone Densitometry, classification of hip BMD is based on the lower of two T-scores; total hip or femoral neck. IMPRESSION: Osteoporosis: Lowest T-score is at or below -2.5. This patient's T-score meets the World Health Organization criteria for osteoporosis. Reviewed, Interpreted and Dictated by Charley Roque MD Transcribed by Chrissy Hernandez Authenticated and [facility]
== END 2024-07-03 23:59 | disposition home or self-care (01) ==
LOC: RAD 13:05
PROVIDERS: PCP Internal Medicine; Visit Provider Internal Medicine
DX: M85.88 Other specified disorders of bone density and structure, other site (principal)
CPT/HCPCS: 77080

== ENCOUNTER 2024-07-14 14:00 | Outpatient (RCR) | payer MEDICARE, SELFPAY | END 2024-07-14 23:59 | disposition home or self-care (01) | LOC: OT 14:00 | PROVIDERS: PCP Family Medicine; Visit Provider Orthopaedic Surgery | DX: Z98.890 Other specified postprocedural states (principal) | CPT/HCPCS: 97014; 97110; 97140; 97530; G0283 ==

== ENCOUNTER 2024-10-04 10:46 | Outpatient (CLI) | payer MEDICARE, SELFPAY ==
--- OUTSIDE RECORDS SUMMARY | 2024-10-04 10:47 | XMS_ITS | Continuity of Care Document ---
Author Organization [facility]. If a dditional information is needed, contact Health Information Management at [phone] Address [address] [place] [address] Phone Mental Status Cognitive function finding 22-Feb-2018 Functional Status Functional finding 18-Feb-2018 Functional finding 18-Feb-2018 Functional finding 18-Feb-2018 Functional finding 18-Feb-2018 Allergies and Adverse Reactions itraconazole(Allergy) Onset: 22-Feb-2018 Reaction:Rash Medications Tramadol HCl ER;100 MG ORAL Each Morning Start:18-Feb-2018 Comments:100 mg PO AM Pravachol;40 MG ORAL Each Mo rning Start:18-Feb-2018 Comments:40 mg PO AM omega 3-oqs-icf-fish oil 1,0 00 mg (120 mg-180 mg) capsule;1200 MG ORAL Each Morning Start:18-Feb-2018 Comments:1200 mg PO AM DULoxetine 20 MG Delayed Rel ease Oral Capsule [Cymbalta];20 MG ORAL Daily Start:18-Feb-2018 Comments:20 mg PO DAILY naproxen;500 MG ORAL Two Moi es a Day Start:18-Feb-2018 Comments:500 mg PO BID [id number];40 MG ORAL Two Times a Day Start:18-Feb-2018 Comments:40 mg PO BID temazepam 7.5 MG Oral Capsul e [Restoril];10 MG ORAL At Bedtime Start:18-Feb-2018 Comments:10 mg PO BEDTIME As Needed for Sleep traMADol hydrochloride 50 MG Oral Tablet;50 MG ORAL As Needed Start:18-Feb-2018 Comments:50 mg PO PRN As Needed for Pain Citracal + D3 Gummies;1 TAB ORAL Each Morning Start:18-Feb-2018 Comments:1 tab PO AM lidocaine 4 % topical patch; 1 PATCH TOPICAL Q12H Start:18-Feb-2018 Comments:1 patch TOPICAL Q12H As Needed for Pain Flonase_[id number];1 SPRA Y Intranasal Each Morning Start:18-Feb-2018 Comments:1 spray INTRANASAL AM guselkumab 100 mg/mL subcuta neous syringe;1 DOSE Sub-Q As Directed Start:18-Feb-2018 Comments:1 dose Sub-Q DIRECTED 1 ML denosumab 60 MG/ML Pref illed Syringe [Prolia];60 MG Sub-Q As Needed Start:18-Feb-2018 Comments:60 mg SUB-Q PRN As Needed for bone growth Social History Smoking Status Ex-smoker Recorded: 18-Feb-2018
--- OUTSIDE RECORDS SUMMARY | 2024-10-04 10:51 | XMS_ITS | Clinical Summary ---
Author Organization [facility] ([place], [place], [place], [place]) Address [address] [place] [address] Care Team Providers Care Boat Hand Name Role Phone Leopoldo Stoll MD Primary Care Provider [phone] Allergies Active Allergy Reactions Criticality Noted Date Comments Itraconazole Hives,Other (See Comments) High 01/20/2016 Other reaction(s): I-RASH Sulfamethoxazole-Trimet hoprim Itching Low 02/11/2018 Medications ammonium lactate (LAC-HYDRIN) 12 % lotion 3 Active calcipotriene-b etamethasone (Wynzora) 0.005-0.064 % Crea Apply topically. Active cyclobenzaprine (FLEXERIL) 10 MG tablet Take 1 tablet (10 mg total) by mouth nightly. 3 Active diphenhydrAMINE (BENADRYL) 25 mg capsule Benadryl Allergy Active esomeprazole (NexIUM) 40 MG capsule Take 1 capsule (40 mg total) by mouth daily. 4 Active furosemide (LASIX) 20 MG tablet Take 1 tablet (20 mg total) by mouth daily 10mg 3 times a week. Active ipratropium (ATROVENT) 42 mcg (0.06 %) 0.06% nasal spray every 12 (twelve) hours. Active lidocaine (LIDODERM) 5 % patch Place 1 patch onto the skin daily. Active loratadine (CLARITIN) 10 mg tablet Take 1 tablet (10 mg total) by mouth daily. 3 Active meclizine (ANTIVERT) 25 mg tablet Take by mouth 2 (two) times daily. 3 Active predniSONE (DELTASONE) 5 MG tablet Take 1 tablet (5 mg total) by mouth daily. 3 Active rosuvastatin (CRESTOR) 20 MG tablet Take 1 tablet (20 mg total) by mouth nightly. 3 Active risankizumab-rz aa 150mg/1.66mL(75 mg/0.83 mL x2) SyKt Inject subcutaneously . Active calcium carbonate-vitam in D3 (OSCAL-D) 500 mg(1,250mg) -200 unit per tablet Take 1 tablet by mouth 2 (two) times daily with breakfast and dinner. Active multivitamin per tablet Take 1 tablet by mouth daily. Active multivitamin with minerals (Hair,Skin and Nails) tablet Take 1 tablet by mouth daily. Active omega 8-syh-tvz-fish oil capsule Take 1 capsule (1,000 mg total) by mouth daily. Active lactobacillus rhamnosus, GG, (CULTURELLE) 10 billion cell capsule Take 1 capsule by mouth daily. Active cholecalciferol , vitamin D3, 50 mcg (2,000 unit) Cap Take 1 capsule (2,000 Units total) by mouth daily. Active Active Problems Problem Noted Date Diagnosed Date CVA (cerebral vascular accident) 05/05/2023 Preop examination 05/05/2023 Vitamin D deficiency 05/05/2023 Breast cancer 05/05/2023 Anxiety 05/05/2023 GERD (gastroesophageal reflux disease) Hyperlipidemia 05/05/2023 Psoriatic arthritis 05/05/2023 Valvular heart disease 05/05/2023 Social History Tobacco Use Types Packs/Day Years Used Date Smoking Tobacco: Former Cigarettes Smokeless Tobacco: Current Tobacco Cessation:Ready to Q uit: Not Asked; Counseling Given: Not Answered Comments:vape Alcohol Use Standard Drinks/Week Comments Yes 0 (1 standard drink = 0.6 oz pur e alcohol) social Food Insecurity Answer Date Recorded Food run out past 12 months Not on file 12/2023 Food did not last past 12 months Not on file 04/13/2023 Employment Answer Date Recorded Help finding and keeping a job Not on file 0 04/13/2023 Family and Community Support Answer Vinny e Recorded Help with Day to Day Activities Not on file 04/13/2023 Feeling Lonely or Isolated Not on file 04/13 Educational Attainment Answer Date Tino rded Speak language other than Malaysian at home Not on file 04/13/2023 Want help with school or training Not on file 04/13/2023 Substance Use Answer Date Recorded Used prescription meds for non-medical reasons N ot on file 04/13/2023 Used illegal drugs past 12 months Not on file 04/13/2023 Comments Unknown Sex and Gender Information Value Date Recorded Sex Assigned at Female 09/30/2021 11:31 AM CDT Legal Sex Female 11:31 AM CDT Gender Identity Female 09/30/2021 11:31 AM CDT Sexual Orientation Not on file Last Filed Vital Signs Vital Sign Reading Time Taken Comments Blood Pressure 98/64 05/21/2023 6:15 AM EST Pulse 90 05/21/2023 6:15 AM EST Temperature 36.6 C (97.9 F) 05/21/2023 6:15 AM EST Respiratory Rate 18 05/21/2023 6:15 AM EST Oxygen Saturation 99% 05/21/2023 6:15 AM EST Inhaled Oxygen Concentration - - Weight 85 kg (187 lb 6.4 oz) 05/20/2023 11:27 AM EST Height 162.6 cm (5' 4 ) 05/20/2023 11:27 AM EST Body Mass Index 32.17 05/20/2023 11:27 AM EST Plan of Treatment Health Maintenance Due Date Last Done Comments CT Colonography 1952 Colonoscopy 1952 Colorectal Cancer Screening 1952 DXA SCAN 1952 FOBT/FIT 1952 Fit-DNA (Cologuard) 1952 Sigmoidoscopy 1952 Depression Screening (12+) 1964 Hepatitis C Screening 1970 Breast Cancer Screening 1992 Pneumococcal 50+ years (1 of 1 - PCV) 2002 Shingles Vaccine (Zoster) (1 of 2) 2002 DTAP/TDAP/TD VACCINES (2 - T d or Tdap) 06/07/2006 06/07/1996 Respiratory Syncytial Virus (RSV) Adult or (1 - Risk 60-74 years 1-dose series) 2012 Medicare Initial AWV G0438 04/06/2018 COVID-19 VACCINE ( season) 2023 04/16/2021, 06/16/2020, 05/19/2020 Falls Risk Screening 04/05/2024 Tobacco Cessation Counseling and Screening (12+) 05/05/2024 05/05/2023 Influenza Vaccine (Season Ended) 2024 01/21/20, 12/31/2020 Medical Devices Implanted Type Area Chain Machine Operator Device Identifier Shelf Expiration Date Model / Serial / Lot Scr Acet Canc Pinn 6.5x25mm 1217-25-500 - [id number] Implanted:Qty : 1 on 05/20/2023 by Shayne Staples MD at [facility] TOTAL JOINT CONSTRUCT Right: Hip J &J:DEPUY:DEPUY ORTH[employer] 01/02/2033 1217-25-5 00 / / [id number] Liner Pincl Altrx [id number] 1221-36-052 - [id number] Implanted:Qty : 1 on 05/20/2023 by Shayne Staples MD at [facility] TOTAL JOINT CONSTRUCT Right: Hip J &J:DEPUY:DE[employer] ORTHOP[employer] 02/03/2028 1221-36-0 52 / / [id number] Cup Acet Gription Sz 52mm 1217-32-052 - [id number] Implanted:Qty : 1 on 05/20/2023 by Shayne Staples MD at [facility] TOTAL JOINT CONSTRUCT Right: Hip J &J:DEPUY:[employer] OR[employer] 03/04/2033 1217-32-0 52 / / [id number] Stem Actis Colld Std Sz 3 1010-11-030 - [id number] Implanted:Qty : 1 on 05/20/2023 by Shayne Staples MD at [facility] TOTAL JOINT CONSTRUCT Right: Hip J &J:DEPUY:[employer] 03/04/2033 1010-11-0 30 / / [id number] Head Fem Artc Ceramic Tpr36+5 1365-36-320 - [id number] Implanted:Qty : 1 on 05/20/2023 by Shayne Staples MD at [facility] TOTAL JOINT CONSTRUCT Right: Hip J &J:DEPUY:[employer] 02/03/2028 1365-36-3 [id number] Insurance [facility] MEDICARE PPO Advance Directives For more information, please contact: [phone] * Full Code (Latest Code Status on File) Date Activated Date Inactivated Comments 05/20/2023 5:49 PM 05/21/2023 2:48 PM Care Teams Boat Hand Relationship Specialty Start Date End Date Leopoldo Stoll MD [address] [place] [address] PCP - General Family Medicine 05/19/23
--- OUTSIDE RECORDS SUMMARY | 2024-10-04 10:51 | XMS_ITS | Encounter Summary ---
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 Carroll Michael MD [address] [place] [address] Phone: tel: fax: Referral ID Status Reason Start Date Expiration Date V isits Requested Visits Authorized [id number] Closed Specialty Services Required 03/02/2022 09/01/2023 1 1 Encounter Details Date Type Department Care Team (Late st Contact Info) Description 03/02/2022 Community [facility] [address] [place] [address] Carroll Michael MD [address] [phone] 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 (Primary Dx) Social History Tobacco Use Types Packs/Day Years Used Date Smoking Tobacco: Passive Smo ke Exposure - Never Smoker Alcohol Use Standard Drinks/Week Comments Yes 0 (1 standard drink = 0.6 oz pure alcohol) Alcoholic Drinks/day: Acute alcohol use Comments Unknown Sex and Gender Information Value Date Recorded Sex Assigned at Not on file Legal Sex Female 6:56 PM EDT Gender Identity Not on file Sexual Orientation Not on file documented as of this encounter Plan of Treatment Upcoming Encounters Date Type Department Care Team (Late st Contact Info) Description 06/12/2025 11:00 AM EDT Office Visit [facility] [address] [place] [phone] Onelia Sun MD [address] [place] [address] Scheduled Referrals Name Type Priority Associated Diagnoses Order Schedule Ambulatory referral to Neurology Outpatient Referral Routine 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
--- OUTSIDE RECORDS SUMMARY | 2024-10-04 10:51 | XMS_ITS | Clinical Summary ---
Author Organization [facility] Address [address] [place] [address] Care Team Providers Care Auto Electrical Technician Name Role Phone Norberto Duff MD Primary Care Provider Allergies Active Allergy Reactions Criticality Noted Date Comments Itraconazole Hives,Unknown - Patient states they do not know rxn details,Itching,Rash High 01/20/2016 Other reaction(s): I-RASH Sulfamethoxazole-Trimet hoprim Itching Medium 02/11/2018 Medications Calcium Carb-Cholecalci ferol (CALCIUM 1000 + D PO) Take 1 tablet by mouth 1 (one) time each day. Active esomeprazole (NexIUM) [address] capsule Take 1 capsule (40 mg) by mouth 1 (one) time each day. Active lidocaine (Lidoderm) 5 % patch Place 1 patch on the skin. Active fluticasone (Flonase) 50 MCG/ACT nasal spray Administer 1 spray into affected nostril(s) 1 (one) time each day. 8 Active rosuvastatin (Crestor) 20 MG tablet 3 Active Loratadine 10 MG capsule Take by mouth 1 (one) time each day. Active diphenhydrAMINE (Benadryl Allergy) 25 MG capsule Benadryl Allergy Active Calcium-Vitamin D 500-3.125 MG-MCG tablet Calcium-Vitamin D Daily Active MULTIPLE VITAMINS-CALCIU M PO Multiple Vitamin capsule Daily Active ammonium lactate (Lac-Hydrin) 12 % lotion 3 Active loratadine (Claritin) 10 MG tablet 3 Active predniSONE (Deltasone) 5 MG tablet 3 Active ASPIRIN 81 MG chewable tablet 1 tablet (81 mg). 3 Active calcium carbonate (Os-Donato) 1250 (500 Ca) MG tablet Take 1 tablet (1,250 mg) by mouth 1 (one) time each day. Active Risankizumab-rz aa (Skyrizi) 150 MG/ML solution prefilled syringe Inject under the skin. Active ammonium lactate (Amlactin) 12 % cream 5 Active traMADol (Ultram) 50 MG tablet 4 Active ibuprofen 800 MG tablet Take 1 tablet (800 mg) by mouth 3 (three) times a day. Active ibuprofen 200 MG tablet Take 1 tablet (200 mg) by mouth. Active guaiFENesin (Mucinex) 600 MG 12 hr tablet Acti ve furosemide (Lasix) 20 MG tablet 4 Active diclofenac (Voltaren) 1 % topical gel Active diazePAM (Valium) 2 MG tablet 4 Active cyclobenzaprine (Flexeril) 10 MG tablet Active PROBIOTIC PRODUCT PO Take by mouth. Acti ve Multiple Vitamin (MULTIVITAMIN ADULT PO) Take 1 tablet by mouth 1 (one) time each day. Active Azelastine HCl 137 MCG/SPRAY solution Active multivitamin-mi nerals-folic acid-coenzyme q10 (Preservision AREDS 2) capsule Take 1 capsule by mouth daily. Active psyllium (Metamucil) 58.6 % packet Take 1 packet by mouth daily. 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), right 04/14/2022 Profound, moderate or severe vision impairment 0 04/14/2022 Degenerative drusen of both eyes 04/14/2022 Other localized visual field defect, bilateral 0 04/14/2022 Crowded optic disc, bilateral 04/14/2022 Afferent pupillary defect of right eye 3 Pseudophakia of both eyes 04/14/2022 PCO (posterior capsular opacification), right Encounters Date Type Department Care Team Description 07/10/2024 Telephone [facility] [address] [place] [phone] Onelia Sun MD from Last 3 Months Family History Medical History Relation Name Comments Hypertension Brother Heart disease Father Conversions - Other Mother Hearing deficit Relation Name Status Comments Brother Father Mother Social History Tobacco Use Types Packs/Day Years Used Date Smoking Tobacco: Former Cigarettes 1 40 1 972 - 2012 Passive Smoke Exposure: Yes Smokeless Tobacco: Never Tobacco Cessation:Counseling Given: Not Answered Alcohol Use Standard Drinks/Week Comments Yes 0 (1 standard drink = 0.6 oz pure alcohol) Alcoholic Drinks/day: Acute alcohol use Comments Unknown Sex and Gender Information Value Date Recorded Sex Assigned at Not on file Legal Sex Female 6:56 PM EDT Gender Identity Not on file Sexual Orientation Not on file Last Filed Vital Signs Vital Sign Reading Time Taken Comments Blood Pressure 136/77 06/29/2018 3:09 PM EDT Pulse 83 06/29/2018 3:09 PM EDT Temperature - - Respiratory Rate - - Oxygen Saturation - - Inhaled Oxygen Concentration - - Weight 83 kg (183 lb) 05/18/2022 12:00 PM EST Height 162.6 cm (5' 4 ) 05/18/2022 12:00 PM EST Body Mass Index 31.41 05/18/2022 12:00 PM EST Plan of Treatment Upcoming Encounters Date Type Department Care Team (Late st Contact Info) Description 06/12/2025 11:00 AM EDT Office Visit [facility] [address] [place] [phone] Onelia Sun MD [address] [place] [phone] Health Maintenance Due Date Last Done Comments [facility]-Depression Screening 1952 [facility]-Hepatitis C Screening 1950 [facility]-Medicare Annual Wellness (AWV) 1950 [facility]-/Child/Adol SDOH Screenings 1950 [facility]- SDOH Screenings 1970 [facility]-Adult SDOH Screenings 1970 [facility]-Zoster Vaccines (1 of 2) 12/20/1971 [facility]-DTaP,Tdap,and Td Vaccines (1 - Tdap) 06/08/1996 06/07/1996 CT Colonography 1997 Colonoscopy 1997 FIT-DNA 1997 FIT 1997 FOBT 1997 Sigmoidoscopy 1997 [facility]-Colorectal Cancer Screening 1997 [facility]-Pneumococcal Vaccine: 50+ Years (1 of 1 - PCV) 2002 [facility]-RSV Vaccine: 60+ Years or (1 - Risk 60-74 years 1-dose series) 2012 [facility]-Bone Density Scan 07/08/2019 07/07/2017, 018 [facility]-Lung Cancer Screening 11/11/20222021, 05/20/2021, 03/21/2021, Additional history exists [id number] Vaccine ( season) 2023 04/16/2021, 06/30/2020, 06/16/2020, Additional history exists [facility]-Influenza Vaccine (Season Ended) 2024 01/20/2023, 01/21/2021, 12/31/2020, Additional history exists [facility]-Hepatitis A Vaccines Aged Out 09/01/2017 No longer eligible based on patient's age to complete this topic [facility]-Obesity Intervention Completed 05/22/2024, 10/2022 HPV Vaccines Aged Out No longer eligi ble based on patient's age to complete this topic [facility]-HIB Vaccines Aged Out No longer e ligible based on patient's age to complete this topic [facility]-IPV Vaccines Aged Out No longer e ligible based on patient's age to complete this topic [facility]-Rotavirus Vaccines Aged Out No lo nger eligible based on patient's age to complete this topic Insurance [facility] MEDICARE Care Teams Auto Electrical Technician Relationship Specialty Start Date End Date Norberto Duff MD [address] [place] [address] [address] [place] [address] PCP - General 08/16/20
--- OUTSIDE RECORDS SUMMARY | 2024-10-04 10:51 | XMS_ITS | Encounter Summary ---
Author Organization [facility] Address [address] [place] [address] Care Team Providers Care Campus Recruiting Intern Name Role Phone Norberto Duff MD Primary Care Provider Encounter Details Date Type Department Care Team (Late Contact Info) Description 03/23/2022 Lab Requisition [facility] [address] [place] [address] Social History Tobacco Use Types Packs/Day Years [...] Encounters Date Type Department Care Team (Late Contact Info) Description 06/12/2025 11:00 AM EDT Office Visit [facility] [address] [place] [phone] Onelia Sun MD [address] [place] [phone] documented as of this encounter Visit Diagnoses Not on filedocumented in this encounter Care Teams Campus Recruiting Intern Relationship Specialty Start Date End Date Norberto Duff MD [address] [facility] [address] [place] [address] PCP - General 08/16/20 documented as of this encounter
--- OUTSIDE RECORDS SUMMARY | 2024-10-04 10:51 | XMS_ITS | Encounter Summary ---
Author Organization [facility] Address [address] [place] [address] Care Team Providers Care Rn Testing Name Role Phone Norberto Duff MD Primary Care Provider [phone] Encounter Details Date Type Department Care Team (Late st Contact Info) Description 01/13/2022 Lab Requisition [facility] [address] [place] [address] Hank Judge MD [address] [facility] [address] [place] [address] Arteritis, unspecified (CMS/[facility]) Social History Tobacco Use Types Packs/Day Years [...] Description 06/12/2025 11:00 AM EDT Office Visit [facility] [address] [facility] [place] [phone] Onelia Sun MD [address] [facility] [address] [place] [address] documented as of this encounter Procedures Procedure Name Priority Date/Time Associated Diagnosis Comments SURGICAL PATHOLOGY EXAM Routine 01/12/2022 Arteritis, unspecified (CMS/HCC) documented in this encounter Results * Surgical Pathology Exam (01/12/2022) Case Report Surgical Pathology Case: [id number] Authorizing Provider: Hank Judge MD Collected: 01/12/2022 Ordering Location: [facility] Lab Received: 01/13/2022 1109 Pathologist: Andi Carolina MD Specimen: Temporal Artery, Right temporal artery biopsy 01/14/2022 10:12 AM EDT [facility] Final Diagnosis A. RIGHT TEMPORAL ARTERY, BIOPSY: -BENIGN ARTERY; NO INFLAMMATION; NO FEATURES OF TEMPORAL ARTERITIS NOTED. 01/14/2022 10:12 AM EDT [facility] at 1012 EDT Clinical Information I77.6 - Arteritis, unspecified [ICD-10-CM] 01/14/2022 10:12 AM EDT [facility] Gross Description A. RIGHT TEMPORAL ARTERY BIOPSY Received in formalin labeled right temporal artery biopsy , and consists of a dean/brown, rubbery tissue fragment that measures 1.2 x 0.4 x 0.2 cm. Entirely submitted unmodified in cassette A1. Rema Grajeda 01/14/2022 10:12 AM EDT [facility] Intradepartmental Consultation with Agreement DR RENEA ARMSTRONG 01/14/2022 10:12 AM EDT [facility] Tissue Temporal artery specimen / Unknown 01/12/2022 01/13/2022 11:09 AM EDT us Hank Judge MD LAB PATHOLOGY ORDERABLES Final Result [facility] [address] [place] [address] documented in this encounter Visit Diagnoses Diagnosis Arteritis, unspecified (CMS/HCC) Arteritis, unspecified documented in this encounter Care Teams Rn Testing Relationship Specialty Start Date End Date Norberto Duff MD [address] [place] [address] [address] [place] [address] PCP - General 08/16/20 documented as of this encounter
--- OUTSIDE RECORDS SUMMARY | 2024-10-04 10:51 | XMS_ITS | Encounter Summary ---
Author Organization [facility] ([place], [place], [place], [place]) Address [address] [place] [address] Care Team Providers Care Garment Sewer Hand Name Role Phone Norberto Duff MD Primary Care Provider [phone] Jeff Toth MD Primary Care Provider [phone] Leopoldo Stoll MD Primary Care Provider [phone] Encounter Details Date Type Department Care Team (Late st Contact Info) Description 01/04/2022 Outside Orders [facility] [address] [place] [address] Shayne Estrada MD [address] [facility] [address] [place] [address] Giant cell arteritis (HCC) (Primary Dx) Social History Tobacco Use Types Packs/Day Years Used Date Smoking Tobacco: Never Assessed Comments Unknown Sex and Gender Information Value Date Recorded Sex Assigned at Female 09/30/2021 11:31 AM CDT Legal Sex Female 11:31 AM CDT Gender Identity Female 09/30/2021 11:31 AM CDT Sexual Orientation Not on file documented as of this encounter Plan of Treatment Pending Results Name Type Priority Associated Diagnoses Date /Time CBC With Diff/Platelet Lab Routine Giant cell arteritis (HCC) 01/04/2022 10:56 AM EDT documented as of this encounter Procedures Procedure Name Priority Date/Time Associated Diagnosis Comments C-REACTIVE PROTEIN Routine 01/04/2022 10 :55 AM EDT Giant cell arteritis (HCC) SEDIMENTATION RATE Routine 01/04/2022 10 :55 AM EDT Giant cell arteritis (HCC) documented in this encounter Results * C-Reactive Protein (01/04/2022 10:55 AM EDT) CRP 0.50 0.00 - 0.90 mg/dL 01/04/2022 12:02 PM EDT [facility] Blood Venipuncture / Unknown 01/04/2022 10:55 AM EDT 01/04/2022 10:58 AM EDT Shayne Estrada MD LAB BLOOD ORDERABLES Final Resul t Performing Organization Address [facility] de Phone Number [facility] [address] [phone] * Sedimentation rate (01/04/2022 10:55 AM EDT) Sed Rate 10 0 - 30 mm/HR 01/04/2022 11:35 AM EDT [facility] Hematocrit 42.1 % 01/04/2022 11:35 AM EDT [facility] Blood Venipuncture / Unknown 01/04/2022 10:55 AM EDT 01/04/2022 10:58 AM EDT Shayne Estrada MD LAB BLOOD ORDERABLES Final Resul t Performing Organization Address [facility] Co de Phone Number [facility] [address] [phone] documented in this encounter Visit Diagnoses Diagnosis Giant cell arteritis (HCC)- Primary Giant cell arteritis documented in this encounter Care Teams Garment Sewer Hand Relationship Specialty Start Date End Date Norberto Duff MD [address] [place] [address] PCP - General Family Medicine 01/04/22 05/04/23 Jeff Toth MD [address] [place] [address] PCP - General Rheumatology 05/05/23 05/05/23 Leopoldo Stoll MD [address] [place] [phone] PCP - General Family Medicine 05/19/23 documented as of this encounter
--- OUTSIDE RECORDS SUMMARY | 2024-10-04 10:51 | XMS_ITS | Clinical Summary ---
Author Organization [facility] Address [address] [place] [address] Phone Care Team Providers Care Rotary Shear Operator Name Role Phone Jae Ho MD [phone] [ ] Conditions or Problems Problem Name Problem Code Onset Date Status Entry Date Provider Comment Standard Description Annotate Benign Essential Hypertension 41803074 (SNOMED CT) Active Mary Bull Benign hypertension Intertrigo 45950231 (SNOMED CT) Active Mary Bull Intertrigo Abnormal CXR 579372284 (SNOMED CT) Active Mary Bull Standard chest X-ray abnormal Plaque psoriasis 728137410 (SNOMED CT) Active Mary Bull Plaque psoriasis Medications Medication Instructions Start Date Stop Date Generic Name [facility] Provider AMBIEN 10 MG TABS ZOLPIDEM TARTRATE [id number] Eleanor Mansfield RN TRAMADOL HCL 50 MG TABS TRAMADOL HCL 96852785709 Eleanor Mansfield RN PRAVASTATIN SODIUM 40 MG TABS PRAVASTATIN SODIUM 30625630304 Eleanor Mansfield RN LORATADINE 10 MG TABS LORATADINE 45605233272 Eleanor Mansfield RN IBUPROFEN PM 200-38 MG TABS IBUPROFEN-DIPHENH YDRAMINE CIT 31280051764 Eleanor Mansfield RN CALCIUM+D3 TABS CALCIUM CARB-CHOLECALCIFE ROL TABS 96000735399 Eleanor Mansfield RN FLUTICASONE PROPIONATE 50 MCG/ACT SUSP FLUTICASONE PROPIONATE 75333396883 Eleanor Mansfield RN LIDOPURE PATCH 5 % KIT LIDOCAINE-ADHESIV E SHEETS 54031104275 Eleanor Mansfield RN NYSTATIN 960285 UNIT/GM CREA NYSTATIN 01411218316 Eleanor Mansfield RN HYDROCORTISONE 2.5 % CREA HYDROCORTISONE 57173593638 Eleanor Mansfield RN MOMETASONE FUROATE 0.1 % OINT MOMETASONE FUROATE 24015159923 Eleanor Mansfeild RN ENSTILAR 0.005-0.064 % FOAM CALCIPOTRIENE-BET AMETH DIPROP [phone] Eleanor Mansfield RN Medications Administered No information available. Allergies, Adverse Reactions, Alerts Allergy Name Reaction Description Start Date Severity Statu s Provider ITRACONAZOLE Hives Moderate Active Austin Mansfield RN Results Date Name Value Unit Range Flag Description Office Visit: rm 7 MEDS REVIEW Done Documenta tion of current medications (procedure) ORALTOBACUSE Never Tobacco smoking status CIGARET SMKG yes Tobacco smoking status SMOK STATUS Former smoker Tob acco smoking status Plan of Care Type Date Detail Pending order Histoplasmosis U rinary AG Pending order Blastomyces Urin ronnell Antigen Pending order Histoplasmosis U rinary AG Pending order Blastomyces Urin ronnell Antigen Pending order Cryptococcus Ant igen Serum Pending order Histoplasmosis U rinary AG Pending order Blastomyces Urin ronnell Antigen Pending order Cryptococcus Ant igen Serum Pending order Histoplasmosis U rinary AG Pending order Blastomyces Urin ronnell Antigen Pending order Cryptococcus Ant igen Serum Procedures No information available. Vital Signs Date Name Value Unit Description BMI (Body Mass Index) 29.35 kg/m2 Bod y Mass Index (Ratio) Body Temperature 96.8 [degF] temperat ure E&M BP Diastolic 62 mm[Hg] blood pressu re, diastolic BP Systolic 126 mm[Hg] blood pressur e, systolic Heart Rate 65 /min pulse rate Weight Measured 171 [lb_av] weight E& M Weight Measured 171 [lb_av] weight E& M Height 64 [in_us] height E&M Respiratory Rate 20 /min respirat ory rate E&M Immunizations No information available. Advance Directives Directive Description Start Date HEALTHCARE SURROGATE POWER OF POWER TRUCK DRIVER LIVING WILL ON FILE
--- OUTSIDE RECORDS SUMMARY | 2024-10-04 10:52 | XMS_ITS | Data Portability ---
Author Organization [place] [facility] AD[facility] Address [address] [place] [address] Care Team Providers Care Fire Range Technician Name Role Phone SHAWN STOLL Primary Care Provider Assessment No assessment recorded. Plan of Treatment Reminders Order Date Submit Date Provider Last Modified By Organization Details Last Modified Time Details Appointments None recorded. Lab None recorded. Referral None recorded. Procedures None recorded. Surgeries None recorded. Imaging None recorded. Medication Orders hydrocodone 5 mg-acetamin ophen 325 mg tablet 2023 024 [facility], [address] [place] [address], [id number], 4 15:10:56 diazepam 2 mg tablet 2023 024 [facility], [address] [place] [address], [id number], 4 15:17:07 Patient TargetsNo targets recorded. Patient Instructions Encounter Date Encounter Id Patient Instructions Last Modified By Organization Details Last Modified Time 04/13/2023 [id number] F/U once you are able after hip procedure. Will need to review most recent blood work and schedule physical [email or web address] Not available 04/19/2023 08:47:11 Reason for Referral None Reported. Results Created Date Observation Date Name Description Value Unit Range Abnormal Flag Note LastModifiedBy Organization Detail LastModifiedTime Result Notes None recorded. Medical Equipment None Reported. Allergies Allergen ID Allergen Name Allergen Category Reaction Reaction Severity Criticality Documentation Date Start Date Code Code System Note Provider Name and Address Organization Details Recorded Time [id number] itraconwi ole medicatio n Not available Not available Not available 04/13/2023 92234 RxNorm Margie Arechiga [facility], [place] - [facility] & [place] 4 14:33:52 Medications Name Sig Start Date Stop Date Status Note LastModified by Organization Details LastModified Time cyclobenzap rine 10 mg tablet active Not Available Not Available Not Available amoxicillin 500 mg capsule active Not Available Not Available Not Available nabumetone 750 mg tablet active Not Available Not Available Not Available tizanidine 2 mg tablet active Not Available Not Available Not Available ammonium lactate 12 % lotion active Not Available Not Available Not Available ibuprofen 800 mg tablet Take 1 tablet 3 times a day by oral route for 30 days. active Not Available Not Available No t Available fluconazole 150 mg tablet active Not Available Not Available Not Available hydrocodone 5 mg-acetamin ophen 325 mg tablet Take 1 tablet every 6 hours by oral route as needed. active Not Available Not Available No t Available meloxicam 15 mg tablet active Not Available Not Available Not Available ondansetron HCl 4 mg tablet active Not Available Not Available Not Available prednisone 20 mg tablet active Not Available Not Available Not Available prednisone 5 mg tablet active Not Available Not Available Not Available tramadol 50 mg tablet active Not Available Not Available No t Available minoxidil 5 % topical solution 04/13 completed Not Available Not Available Not Available cefadroxil 500 mg capsule active Not Available Not Available Not Available meclizine 25 mg tablet 04/13 completed Not Available Not Available Not Available diazepam 2 mg tablet Take 1 tablet up to 2 times daily as needed for anxiety and sleep active Not Available Not Available No t Available cephalexin 500 mg capsule active Not Available Not Available Not Available esomeprazol e magnesium 40 mg capsule,del ayed release Take 1 capsule every day by oral route. 2023 active Not Available Not Available Not Avai lable mupirocin 2 % topical ointment active Not Available Not Available Not Available furosemide 20 mg tablet active Not Available Not Available Not Available azelastine 137 mcg (0.1 %) nasal spray active Not Available Not Available Not Available methylpredn isolone 4 mg tablets in a dose pack 04/13 completed Not Available Not Available Not Available ipratropium bromide 42 mcg (0.06 %) nasal spray active Not Available Not Available Not Available cefdinir 300 mg capsule active Not Available Not Available Not Available fluticasone propionate 50 mcg/actuati on nasal spray,suspe nsion active Not Available Not Available Not Available loratadine 10 mg tablet active Not Available Not Available Not Available amoxicillin 875 mg-potassiu m clavulanate 125 mg tablet active Not Available Not Available Not Available oxycodone 5 mg tablet active Not Available Not Available No t Available rosuvastati n 20 mg tablet active Not Available Not Available Not Available Attachment Set NEW PATIENT GUIDE active Not Available Not Available No t Available nitrofurant oin monohydrate /macrocryst als 100 mg capsule active Not Available Not Available Not Available duloxetine 20 mg capsule,del ayed release active Not Available Not Available Not Available duloxetine 30 mg capsule,del ayed release active Not Available Not Available Not Available diclofenac 1 % topical gel active Not Available Not Available Not Available guaifenesin ER 600 mg tablet, extended release 12 hr active Not Available Not Available Not Available Cosentyx Pen 300 mg/2 pens (150 mg/mL) subcutaneou s pen injector 04/13 completed Not Available Not Available Not Available Skyrizi 150 mg/mL subcutaneou s pen injector INJECT (150MG) BY SUBCUTANE OUS ROUTE AT WEEKS 0 & 4 (LOADING DOSES) active Not Available Not Available No t Available Alive Calcium-Vit davis D3 260 mg-25 mcg-50 mg chewable tablet Take 1 tablet every day by oral route. active Not Available Not Available No t Available Vitals Date Recorded Body height Body mass index (BMI) Body weight Body temperature Oxygen saturation Oxygen saturation in Arterial blood by Pulse oximetry Heart rate Systolic blood pressure Diastolic blood pressure Provider Name and Address Organization Details Last Updated DateTime 4 163.83 cm 31.7 kg/m2 87033.8 7 g 97.2 [degF] 98 % 98 % 98 /min 138 mm[Hg] 78 mm[Hg] Margie Arechiga [facility] & [place] 4 14:43:41 Date Recorded Body height Body mass index (BMI) Body weight Body temperature Oxygen saturation Oxygen saturation in Arterial blood by Pulse oximetry Heart rate Systolic blood pressure Diastolic blood pressure Provider Name and Address Organization Details Last Updated DateTime 4 163.83 cm 30.8 kg/m2 41226.5 1 g 98.6 [degF] 96 % 96 % 74 /min 134 mm[Hg] 61 mm[Hg] Margie GONZÁLES [facility] & [place] 4 16:15:48 Social History Question Answer Notes LastModified by Organizat ion Details LastModified Time Tobacco Smoking Status Current Every Day Smoker ALYSSA Mg [facility] & [place] 04/13/2023 14:40:41 What Is Your Level Of Caffeine Consumption? Moderate [email or web address] Information not available 04/13/2023 How Much Tobacco Do You Smoke? 1 PPW [email or web address] Information not available 04/13/2023 Sex: Unknown Functional Status Question Answer Note LastModified by Organizat ion Details LastModified Time Do you or have you ever used any other forms of tobacco or nicotine? Yes [email or web address] Information not available 04/13/2023 What is your level of alcohol consumption? Moderate Information not available 04/13/2023 Do you or have you ever used smokeless tobacco? Never used smokeless tobacco [email or web address] Information not available 04/13/2023 Do you or have you ever used e-cigarettes or vape? Current user of electronic cigarettes [email or web address] Information not available 04/13/2023 Mental Status None recorded. Family History Nothing Reported. Medical History No medical history recorded. Gynecological HistoryNo gynecological history recorded. Obstetrics History GPAL:G 0 P 0 0 0 0 Immunizations Vaccine Type Date Status Note Provider Nam e and Address Organization Details Recorded Time Influenza, high-dose, quadrivalent, PF 1 completed Margie [facility]iga [facility] [place] 04/13/2023 14:32:58 COVID-19, mRNA, LNP-S, PF, 100 mcg/0.5mL dose or 50 mcg/0.25mL dose 2 completed Margie Arechiga ALYSSA hancock [facility] [place] 04/13/2023 14:32:58 COVID-19, mRNA, LNP-S, PF, 100 mcg/0.5mL dose or 50 mcg/0.25mL dose 1 completed Margie Arechiga ALYSSA hancock [facility] [place] 04/13/2023 14:32:58 COVID-19, mRNA, LNP-S, PF, 100 mcg/0.5mL dose or 50 mcg/0.25mL dose 1 completed Margie Arechiga null, [place] - [facility] [place] [facility] [place] 04/13/2023 14:32:58 Td (adult), 2 Lf tetanus toxoid, preservative free, adsorbed 7 completed Margie Arechiga null, [place] [facility] [place] [facility] [place] 04/13/2023 14:32:58 Hep A, adult 8 completed Margie Arechiga null, [place] [facility] [place] [facility] [place] 04/13/2023 14:32:58 Influenza, split virus, quadrivalent, PF 6 completed Margie Arechiga null, [place] [facility] [place] [facility] [place] 04/13/2023 14:32:58 Influenza, split virus, quadrivalent, PF 3 completed Margie Arechiga null, [place] [facility] [place] [facility] [place] 04/13/2023 14:32:58 SARS-COV-2 (COVID-19) vaccine, UNSPECIFIED 1 completed Margie Arechiga null, [place] [facility] [place] [facility] [place] 10/06/2023 16:16:06 SARS-COV-2 (COVID-19) vaccine, UNSPECIFIED 1 completed Margie Arechiga [place], [place] [facility] [place] [facility] [place] 10/06/2023 16:16:06 influenza, unspecified formulation 9 completed Margie Arechiga null, [place] [facility] [place] [facility] [place] 10/06/2023 16:16:06 influenza, unspecified formulation 0 completed Margie Arechiga null, [place] [facility] [place] [facility] [place] 10/06/2023 16:16:06 influenza, unspecified formulation 1 completed Margie Arechiga null, [place] [facility] [place] [facility] [place] 10/06/2023 16:16:06 Past Encounters Encounter ID Performer Location Encounter Start Date Encounter Closed Date Diagnosis/Indication Diagnosis SNOMED-CT Code Diagnosis ICD10 Code Diagnosis Note [id number] Shawn Stoll MD [facility] [address] [place] [address] 04/13/2023 14:02:19 04/13/2023 15:20:09 Pain of right hip joint 3185929749 04265 M25.551 Rf hydrocodon e while awaiting surgery Anxiety 70050656 F41.9 RF diazepam [id number] Shawn Stoll MD [facility] [address] [place] [address] 10/06/2023 15:43:57 10/06/2023 16:58:06 Pain of right shoulder joint 4945897654 3547045 M25.511 Patient can take 800 mg ibuprofen 3 times a day and occasional tramadol if needed. If pain persist return for re-evaluat ion at which point we would start with an x-ray and go from there Health Concerns Section Related Observation LastModified by Organization Detai ls LastModified Time None Recorded Concern Status LastModified by Organization Details LastModified Time None Recorded Advance Directives Directive None Recorded Payers Insurance Date Sequence Insurance Name Policy Number Policy Lopez Covered Member ID Lopez Member ID Guarantor Name 10/11/2023 1 [employer] (MEDICARE REPLACEMENT/A DVANTAGE - PPO) Shanika Santiago [id number] Notes Date Note Type Note Provider Name and Address Organization Details Recorded Time 2023 text/h tml New pt. 72 yo WF with multiple medical problems presents to establish care.PMH: Psoriatic arthritisStroke in Right eyeRight hip necrosisHyperlipidemiaGERDperipheral edemaanxietyinsomniah/o breast cancer-s/p double mastectomyS/P cholecystectomyMEDS: SkyrizziNexium 40 mg dailyLidocaine patchIpatropium bromide 0.6-42mcgCrestor 20 mgFlexeril 10 mgLoratidine 10 mgPrednisone 5 mg dailyFurosemide 20 mg dailyVit D 20,000 uValium 2 mg nightlyAmmonium lactateCalcium with D3Fish oilProbioticALL: Itraconazole?Cosyntex?Soc Hx: retired, lives in [place], [facility], non-drinkerScheduled for Rt hip replacement per Dr. Staples next week Shawn Stoll MD [address], [place], [address], [place] - [facility] [place] 04/19/2023 08:48:13 2023 text/h tml pt presents c/o right shoulder pain x 2 weeks. NO injury or trauma. Is LHD. Shawn Stoll MD [address], [place], [address], [facility] - [facility] & [place] 10/07/2023 23:06:48 OBGyn Episode No OBEpisode recorded.
--- OUTSIDE RECORDS SUMMARY | 2024-10-04 10:52 | XMS_ITS | Referral Summary ---
Author Organization [facility] ([place], [place], [place], [place]) Address [address] [place] [address] Care Team Providers Care Nail Sticker Name Role Phone Leopoldo Stoll MD Primary Care Provider Allergies Active Allergy [...] 1 tablet by mouth daily. Active omega 7-cca-xdp-fish oil capsule Take 1 capsule (1,000 mg [...] Date Tino rded Speak language other than Micronesian at home Not on file 04/13/2023 Want [...] 05/20/2023 11:27 AM EST Plan of Treatment Not on file Medical Devices Implanted Type Area Crabber Device Identifier Shelf Expiration Date Model / Serial / Lot Scr Acet Canc Pinn 6.5x25mm 1217-25-500 - [id number] Implanted:Qty : 1 on 05/20/2023 by Shayne Staples MD at [facility] [employer] Right: Hip J &J:DEPUY:[employer] 01/02/2033 1217-25-5 00 / / [id number] Liner Pincl Altrx [id number] 1221-36-052 - [id number] Implanted:Qty : 1 on 05/20/2023 by Shayne Staples MD at [facility] [employer] Right: Hip J &J:DEPUY:[employer] 02/03/2028 1221-36-0 52 / / [id number] Cup Acet Gription Sz 52mm 1217-32-052 - [id number] Implanted:Qty : 1 on 05/20/2023 by Shayne Staples MD at [facility] [employer] Right: Hip J &J:DEPUY:[employer] 03/04/2033 1217-32-0 52 / / [id number] Stem Actis Colld Std Sz 3 1010-11-030 - [id number] Implanted:Qty : 1 on 05/20/2023 by Shayne Staples MD at [facility] [employer] Right: Hip J &J:DEPUY:[employer] 03/04/2033 1010-11-0 30 / / [id number] Head Fem Artc Ceramic Tpr36+5 1365-36-320 - [id number] Implanted:Qty : 1 on 05/20/2023 by Shayne Staples MD at [facility] [employer] Right: Hip J &J:DEPUY:[employer] 02/03/2028 1365-36-3 20 / / [id number] Insurance [employer] MEDICARE PPO Advance Directives For more information, please contact: [phone] * Full Code (Latest Code Status on File) Date Activated Date Inactivated Comments 05/20/2023 5:49 PM 05/21/2023 2:48 PM Care Teams Nail Sticker Relationship Specialty Start Date End Date Leopoldo Stoll MD [address] [place] [address] PCP - General Family Medicine 05/19/23
[2024-10-04 11:05] VITALS: BP 132/68; PULSE 74; RESP 20; TEMP 36.8; O2SAT 98
[2024-10-04] MEDS: DENOSUMAB 60 MG/ML SYRINGE SUBCUT (11:05)
== END 2024-10-04 11:15 | disposition home or self-care (01) ==
LOC: INF 10:46
PROVIDERS: PCP Internal Medicine; Visit Provider Internal Medicine
DX: M81.0 Age-related osteoporosis without current pathological fracture (principal)
CPT/HCPCS: 96372; J0897

== ENCOUNTER 2024-12-19 12:00 | Outpatient (CLI) | payer MEDICARE, SELFPAY ==
[2024-12-19 13:52] LABS: Microscopic, Urine URINE MICROSCOPIC (MICROSCOPIC)
[2024-12-19 14:37] LABS: Bilirubin,Urine Negative (Negative); Color,Urine YELLOW (Yellow); Glucose,Urine (UA) Negative (Negative); Ketones,Urine Negative (Negative); Leukocyte Esterase,Urine TRACE (Negative); PH,Urine 6.0 (5.0-8.5); Protein,Urine Negative (Negative); Specific Gravity, Urine 1.015 (1.005-1.030); Urobilinogen,Urine 0.2 EU/dl (0.2)
[2024-12-19 14:41] LABS: Hematocrit 41.1 % (37.0-47.0); Hemoglobin 12.5 g/dL (12.2-16.2); Immature Granulocytes % 0.2 %; Mean Corpuscular HGB Conc 30.4 g/dL (31.8-35.4); Mean Corpuscular Hemoglobin 25.8 pg (27.0-31.2); Mean Corpuscular Volume 84.9 fl (81-99); Nucleated Red Blood Cells % 0 %; Platelet Count 237 K/mm3 (142-424); Red Blood Count 4.84 M/mm3 (4.20-5.40); Red Cell Distribution Width-SD 54.7 fL; White Blood Count 4.7 K/mm3 (4.8-10.8)
[2024-12-19 14:57] LABS: Bacteria,Urine 1+ /lpf
[2024-12-19 14:58] LABS: Hemoglobin A1C 5.6 % (4.0-6.0)
[2024-12-19 15:52] LABS: Albumin Level 4.5 g/dl (3.5-5.0); Chloride 104 mmol/L (98-107); Potassium 4.7 mmoL/L (3.5-5.1); Sodium 141 mmol/L (136-145)
[2024-12-19 15:55] LABS: Alanine Aminotransferase 21 U/L (12-78); Albumin/Globulin Ratio 1.7 (1.1-1.8); Alkaline Phosphatase 84 U/L (38-126); Anion Gap 11.7 mEq/L (5-15); Aspartate Amino Transferase 35 U/L (14-36); Bilirubin,Total 0.7 mg/dl (0.2-1.3); Blood Urea Nitrogen 20 mg/dl (7-17); Carbon Dioxide 30 mmol/L (22.0-30.0); Cholesterol 157 mg/dl (140-200); Creatinine,Serum 0.90 mg/dl (0.52-1.04); Estimated Glomerular Filt Rate 62 ml/min (>60); GFR (African American) 74 ML/MIN (>60); Globulin 2.7 g/dL (1.3-3.2); Iron 96 ug/dL (37-170); Total Protein,Serum 7.2 g/dl (6.3-8.2); Triglycerides 76 mg/dl (30-150)
[2024-12-19 15:56] LABS: Calcium 9.3 mg/dl (8.4-10.2); Glucose 87 mg/dl (74-100); HDL Cholesterol 64 mg/dl (40-60)
[2024-12-19 16:06] LABS: Total Iron Binding Capacity 425 ug/dL (265-497)
[2024-12-19 16:17] LABS: 25-OH Vitamin D, Total 79.8 ng/mL (30-100)
[2024-12-19 16:23] LABS: Free T4 (Free Thyroxine) 0.75 ng/dl (0.78-2.19)
[2024-12-19 16:27] LABS: Thyroid Stimulating Hormone 1.35 uIU/mL (0.465-4.68)
[2024-12-19 16:31] LABS: Ferritin 19.2 ng/ml (11.1-264)
[2024-12-19 16:49] LABS: Hepatitis C Ab Qual. W/ RFX NEGATIVE (Negative)
[2024-12-19 17:22] LABS: Vitamin B12 851 pg/mL (239-931)
--- OUTSIDE RECORDS SUMMARY | 2024-12-20 12:31 | XMS_ITS | Clinical Summary ---
Author Organization [facility] Address [address] [place] [address] Phone Care Team Providers Care Photo Studio Assistant Name Role Phone Jae Ho MD [phone] [ ] Conditions or Problems Problem Name Problem Code Onset Date Status Entry Date Provider Comment Standard Description Annotate Benign Essential Hypertension 10918482 (SNOMED CT) Active Mary Bull Benign hypertension Intertrigo 72330079 (SNOMED CT) Active Mary Bull Intertrigo Abnormal CXR 282900075 (SNOMED CT) Active Mary Bull Standard chest X-ray abnormal Plaque psoriasis 435535471 (SNOMED CT) Active Mary Bull Plaque psoriasis Medications Medication Instructions Start Date Stop Date Generic Name [facility] Provider AMBIEN 10 MG TABS ZOLPIDEM TARTRATE [id number] Eleanor Mansfield RN TRAMADOL HCL 50 MG TABS TRAMADOL HCL [id number] Eleanor Mansfield RN PRAVASTATIN SODIUM 40 MG TABS PRAVASTATIN SODIUM 07225729594 Eleanor Mansfield RN LORATADINE 10 MG TABS LORATADINE 85161098190 Eleanor Mansfield RN IBUPROFEN PM 200-38 MG TABS IBUPROFEN-DIPHENH YDRAMINE CIT 96011092683 Eleanor Mansfield RN CALCIUM+D3 TABS CALCIUM CARB-CHOLECALCIFE ROL TABS 77510860913 Eleanor Mansfield RN FLUTICASONE PROPIONATE 50 MCG/ACT SUSP FLUTICASONE PROPIONATE 35581187417 Eleanor Mansfield RN LIDOPURE PATCH 5 % KIT LIDOCAINE-ADHESIV E SHEETS 53135794003 Eleanor Mansfield RN NYSTATIN 591221 UNIT/GM CREA NYSTATIN 35530627463 Eleanor Mansfield RN HYDROCORTISONE 2.5 % CREA HYDROCORTISONE 53295667900 Eleanor Mansfield RN MOMETASONE FUROATE 0.1 % OINT MOMETASONE FUROATE [phone] Eleanor Mansfield RN ENSTILAR 0.005-0.064 % FOAM CALCIPOTRIENE-BET AMETH DIPROP [phone] Eleanor Mansfield RN Medications Administered No information [...] Description Start Date HEALTHCARE SURROGATE POWER OF PROJECT ANALYST LIVING WILL ON FILE
--- OUTSIDE RECORDS SUMMARY | 2024-12-20 12:32 | XMS_ITS | Clinical Summary ---
Author Organization [facility] Address [address] [place] [address] Care Team Providers Care Vacuum Form Operator Name Role Phone Foreign Grossman DO Primary Care Provider + Allergies Active Allergy Reactions Criticality Noted Date Comments Sulfamethoxazole-Trimethoprim Itching Low 2017 Itraconazole Hives Medium 01/20/2016 Medications Loratadine 10 MG capsule Take by mouth Daily. Active esomeprazole (nexIUM) 40 MG capsule Take 1 capsule by mouth Daily. 1 Active aspirin 81 MG EC tablet Take 1 tablet by mouth Daily. Active multivitamin (MULTI-VITAMIN PO) Take 1 tablet by mouth Daily. Womens daily vitamin Active fluticasone (FLONASE) 50 MCG/ACT nasal spray Daily. Active meclizine (ANTIVERT) 25 MG tablet Take 1 tablet by mouth. 3 Active furosemide (LASIX) 20 MG tablet Take 1 tablet by mouth Daily. Patient to use as needed for weight gain 2 pounds in 24 hours 90 tablet 3 4 Active calcium carbonate (OS-MALDONADO) 1250 (500 Ca) MG tablet Take 1 tablet by mouth Daily. Active Lidocaine 4 % Remove & Discard patch within 12 hours or as directed by Active ciclopirox (LOPROX) 0.77 % suspension Apply by topical route 2 times every day to the affected and surrounding areas of skin in the morning and evening Active IPRATROPIUM BROMIDE NA 2 sprays into the nostril(s) as directed by provider. 21 mcg(0.03%) nasal spray- 2-3 times every day in each nostril Active multivitamin with minerals (HAIR VITAMINS PO) Take 1 tablet by mouth Daily. Active Probiotic Product (PROBIOTIC DAILY PO) Take by mouth. Activ e Risankizumab-rz aa (Skyrizi Pen) 150 MG/ML solution auto-injector Inject 1 mL under the skin into the appropriate area as directed Every 12 (Twelve) Weeks. 1 mL 3 4 Active DULoxetine (CYMBALTA) 30 MG capsuleIndicati ons:Fibromyalgi a Take 1 capsule by mouth Daily. 90 capsule 4 Active ammonium lactate (LAC-HYDRIN) 12 % lotion Apply 1 application every day by topical route. 5 Active pregabalin (LYRICA) 50 MG capsule Take 1 capsule by mouth Every 12 (Twelve) Hours. 5 Active traZODone (DESYREL) 50 MG tablet Take 1 tablet by mouth At Night As Needed for Sleep. 5 Active rosuvastatin (CRESTOR) 20 MG tablet Take 1 tablet by mouth Daily. Please obtain annual lipid panel blood work for future refills 90 tablet 5 Active Active Problems Problem Noted Date Diagnosed Date History of left breast cancer 07/19/2024 Osteoarthritis 08/18/2023 Assessment & Plan (08/19/2023 11:42 AM EDT): * Medications/treatments/interventions tried include: Tylenol, she has done physical therapy, Naproxen, gabapentin, Tramadol, Citalopram, Ambien, Otezla, Effexor, MTX/folic acid, She has seen dermatology, Duexis, Diclofenac, She saw Dr. Tone Sarmiento (Procedures Nurse) in 2016, she lists that she is allergic/intolerant of oxycodone, Tremfya, Cosentyx, Lidocaine patches, Ambien, indomethacin, Lexapro, she has seen a slide machine tender, She saw Dr Sousa (neurosurgeon), she saw an infections disease specialist (Dr. Ho), Cimzia, Etodolac, ibuprofen, Celebrex. 1. Tylenol PRN is ok as directed 2. She has tried taking multiple NSAIDS including meloxicam, etodolac, celebrex, diclofenac, Naproxen, and Duexis 4. She lists that she is allergic/intolerant of Oxycodone 5. She has done some physical therapy 6. She has used lidocaine patches 7. She has taken Tramadol PRN. Psoriatic arthritis 08/18/2023 Assessment & Plan (08/19/2023 12:41 PM EDT): Current: Skyrizi 08/03/22 ACL Q 12 weeks --marked improvement psoriasis * 11/26/20 Right hand x-rays normal, uric acid 5.0, CRP 2.1, ESR 17.0, CBC was fine, RF negative, LYNN 1:160 homogenous * Medications/treatments/interventions tried include: Tylenol, she has done physical therapy, Naproxen, gabapentin, Tramadol, Citalopram, Ambien, Otezla, Effexor, MTX/folic acid, She has seen dermatology, Duexis, Diclofenac, She saw Dr. Tone Sarmiento (Procedures Nurse) in 2016, she lists that she is allergic/intolerant of oxycodone, Tremfya, Cosentyx, Lidocaine patches, Ambien, indomethacin, Lexapro, she has seen a slide machine tender, She saw Dr Sousa (neurosurgeon), she saw an infections disease specialist (Dr. Ho), Cimzia, Etodolac, ibuprofen, Celebrex. Psoriatic arthritis with psoriasis Electric Organ Inspector And Repairer is Dr. Carroll Michael Has previously tried and failed Otezla, methotrexate, Tremfya, Cimzia, Cosentyx Low disease activity from psoriatic arthritis standpoint now on Skyrizi started 08/03/22. Skyrizi has cleared her psoriasis. No side effects. No swollen joints today Present pain complaints due to fibromyalgia and osteoarthritis Labs ordered today for monitoring Continue Skyrizi. Also continue prednisone 5 mg daily. She reports she feels significantly improved on low-dose steroids compared to being off the prednisone Return to clinic 3 months Former smoker (Stopped 2011) 12/17/2020 MÁRQUEZ (dyspnea on exertion) 12/17/2020 HAKEEM Lung nodule 09/19/2019 Psoriasis 01/20/2016 Assessment & Plan (08/19/2023 12:41 PM EDT): Dr. Rodas dermatology Previously severe psoriasis now resolved on Skyrizi. D (Moderate AR) 01/20/2016 Pain 01/20/2016 Overview (01/20/2016): Diffuse pain - ? fibromyalgia Aortic insufficiency Overview (02/12/2016): a. Echocardiogram, 02/19/2011: Erjl-co-frudaqyj aortic insufficiency, mild MR and TR; mild LVH. b. Normal cardiac perfusion study, 02/16/2011, Olivia Sierra MD. c. Echocardiogram, 08/29/2014: LVEF 60% to 65% without WMA; diastolic dysfunction; trace aortic regurgitation. Hypercholesterolemia Fibromyalgia Assessment & Plan (08/19/2023 12:41 PM EDT): Fibromyalgia. She would like to retry low-dose duloxetine. Rx sent to her pharmacy Previously intolerant to gabapentin and Lyrica 1. H & P consistent with this diagnosis. 2. Encourage aerobic activity and sleep hygiene. 3. If she has not had a sleep study/consultation consider getting this done. 4. Weight loss would be helpful 5. She has tried NSAIDS like diclofenac, Duexis, and Naproxen 6. She has done physical therapy 7. She has tried/failed Effexor, gabapentin, Lyrica in the past 8. She has tried/failed gabapentin 9. She has used lidocaine patches 10. She has tried Ambien to improve sleep 11. She has taken antidepressants like Lexapro 12. She has taken Tramadol PRN 13. Dr. Engle recommended Lyrica 75mg BID 08/24 -- reported intolerance Resolved Problems Problem Noted Date Diagnosed Date Resolved Date Malignant neoplasm of centra l portion of left female breast 01/29/2016 07/20/2024 Cancer of left breast 01/20/20162024 Cancer Staging:Clinical stage from 07/29/2016:Stage IA(T1, N0, M0) - Signed by Yong Odonnell MD on 07/29/2016 Overview (02/12/2016): Images from the original note were not included. a. Diagnosed November 2011. b. Bilateral mastectomy, Dr. Cortes, general surgeon, [facility]. c. Breast reconstruction, Dr. Garcia, plastic surgeon, [facility]. albino. Oncologist, Dr. Yong Odonnell, [facility]. Breast cancer 02/09/2018 Encounters Date Type Department Care Team Description 11/03/2024 Telephone [facility] [address] [place] [address] Tai Sauer MD Surgical Clearance from Last 3 Months Immunizations Immunization Administration Dates Next Due COVID-19 (MODERNA) 1st,2nd,3 rd Dose Monovalent 04/16/2021,06/16/2020,05/19/2020 COVID-19 (UNSPECIFIED) 06/30/2020,06/03/2020 Hepatitis A 09/01/2017 Influenza, Unspecified 01/21/2021,12/29/2019, Shingrix 04/21/2018 Td (TDVAX) 06/07/1996 Family History Medical History Relation Name Comments Other Father fathers history unknown Arthritis Mother Osteoarthritis Mother Osteoporosis Mother Arthritis Other Family history Hypertension Other Family history Relation Name Status Comments Father Mother Other Family history Social History Tobacco Use Types Packs/Day Years Used Date Smoking Tobacco: Former Cigarettes 1 35 0 10/08/1976 - 10/09/2011 Electronic Cigarette Star sofiya: 2014 Smokeless Tobacco: Never Comments:Currently Vapes Alcohol Use Standard Drinks/Week Comments Yes 0 (1 standard drink = 0.6 oz pur e alcohol) Occasional PHQ-2 Answer Date Recorded Patient Health Questionnaire-2 Score 0 07/20/2024 Comments No Sex and Gender Information Value Date Recorded Sex Assigned at Female 07/12/2024 11:06 AM EDT Legal Sex Female 10:07 AM EDT Gender Identity Not on file Sexual Orientation Straight 07/12/2024 11 :06 AM EDT Occupation Industry Job Start Date Job End Date 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 Not on file Not on file Not on file Last Filed Vital Signs Vital Sign Reading Time Taken Comments Blood Pressure 116/60 08/10/2024 11:05 AM EDT Pulse 69 08/10/2024 11:05 AM EDT Temperature 36.7 C (98 F) 07/19/2024 2:58 PM EDT Respiratory Rate 18 07/19/2024 2:58 PM EDT Oxygen Saturation 98% 08/10/2024 11:05 AM EDT Inhaled Oxygen Concentration - - Weight 79.4 kg (175 lb) 08/10/2024 11:05 AM EDT Height 162.6 cm (5' 4 ) 08/10/2024 11:05 AM EDT Body Mass Index 30.04 08/10/2024 11:05 AM EDT Plan of Treatment Upcoming Encounters Date Type Department Care Team (Late st Contact Info) Description 11/29/2025 11:30 AM EDT Office Visit [facility] [address] [place] [address] [place] [address] Tai Sauer MD [address] [place] [address] Health Maintenance Due Date Last Done Comments COLOGUARD 1997 COLON CANCER SCREENING 5 YEA R SIGMOIDOSCOPY 1997 COLONOSCOPY 1997 [address] CANCER SCREENING 1997 CT COLONOGRAPHY 1997 FECAL OCCULT BLOOD TEST 1997 FIT Testing (1 year) 1997 Pneumococcal Vaccine 50+ (1 of 1 - PCV) 2002 TDAP/TD VACCINES (2 - Tdap) 06/07/2006 06/07/1996 ANNUAL WELLNESS VISIT 07/16/2016 HEPATITIS C SCREENING 07/16/2016 ZOSTER VACCINE (2 of 2) 06/16/2018 04/21/2018 LIPID PANEL 06/12/2023 06/11/2022, 07/29/2016 LUNG CANCER SCREENING 08/17/2024 08/18/2023 , 11/11/2021, 11/11/2021, Additional history exists COVID-19 Vaccine (6 - 2024-2 6 season) 2024 04/16/2021, 06/30/2020, 06/16/2020, Additional history exists INFLUENZA VACCINE 01/03/2025 01/20/2023, , 12/31/2020, Additional history exists DXA SCAN 07/03/2026 07/03/2024, 0407/2017, 07/07/2017, Additional history exists Procedures Procedure Name Priority Date/Time Associated Diagnosis Comments SCANNED - DEXA 07/03/2024 CT CHEST W WO CONTRAST DIAGNOSTIC Routine 08/18/2023 4:54 PM EDT LIPID PANEL Routine 06/11/2022 10:35 AM EST from Last 3 Months or Most Recently Relevant to Health Maintenance Results * DEXA Scan (07/03/2024) Anatomical Region Laterality Modality Other Amanda Polk APRN CHART REVIEW TABS Final Result * CT Chest With & Without Contrast Diagnostic (08/18/2023 4:54 PM EDT) Anatomical Region Laterality Modality Chest N/A Computed Tomogra phy Historical Provider MD GANNON CT ORDERABLES Final R esult * (ABNORMAL) Lipid Panel (06/11/2022 10:35 AM EST) Total Cholesterol 136 0 - 200 mg/dL [facility] Comment: Cholesterol Reference Ranges (U.S. Department of Health and Human Services ATP III Classifications) Desirable <200 mg/dL Borderline High 200-239 mg/dL High Risk >240 mg/dL Triglyceride Reference Ranges (U.S. Department of Health and Human Services ATP III Classifications) Normal <150 mg/dL Borderline High 150-199 mg/dL High 200-499 mg/dL Very High >500 mg/dL HDL Reference Ranges (U.S. Department of Health and Human Services ATP III Classifications) Low <40 mg/dl (major risk factor for CHD) High >60 mg/dl ('negative' risk factor for CHD) LDL Reference Ranges (U.S. Department of Health and Human Services ATP III Classifications) Optimal <100 mg/dL Near Optimal 100-129 mg/dL Borderline High 130-159 mg/dL High 160-189 mg/dL Very High >189 mg/dL Triglycerides 77 0 - 150 mg/dL [facility] HDL Cholesterol 61(H) 40 - 60 mg/dL [facility] VLDL Cholesterol Maldonado 15 5 - 40 mg/dL [facility] LDL Chol Calc (NIH) 60 0 - 100 mg/dL [facility] 06/11/2022 10:3 5 AM EST 06/11/2022 Narrative [facility]) - 06/11/2022 7:08 PM EST Performed at: [address] [place], [place] [id number] Grinding Wheel Dresser: Derrick Faustin MD, Phone: [phone] Patient Fasting: N us Tai Sauer MD LAB BLOOD ORDERABLES Final Res ult [facility] [address] [place] [address], [place] [phone] [facility] [address] [place] [address], [place] [phone] from Last 3 Months or Most Recently Relevant to Health Maintenance Insurance [facility] Medicare [employer] PPO Care Teams Vacuum Form Operator Relationship Specialty Start Date End Date Foreign Grossman DO [address] [place] [address] [address] [id number] PCP - General Internal Medicine 08/10/24
--- OUTSIDE RECORDS SUMMARY | 2024-12-20 12:32 | XMS_ITS | Encounter Summary ---
[facility] Address [address] [place] [address] Care Team Providers Care Training Engineer Name Role Phone Foreign Grossman Primary Care Provider + Encounter Details Date Type Department Care Team (Late st Contact Info) Description 12/09/2011 Conversion Encounter [facility] HISTORICAL CONV [address] [place] [address] Interface, See Report Social History Tobacco Use Types Packs/Day Years Used Date Smoking Tobacco: Never Assessed Comments Unknown Sex and Gender Information Value Date Recorded Sex Assigned at Female 07/12/2024 11:06 AM EDT Legal Sex Female 10:07 AM EDT Gender Identity Not on file Sexual Orientation Straight 07/12/2024 11 :06 AM EDT documented as of this encounter H&P Notes * Interface, See Report - 12/09/2011 9:00 AM EDT Maricarmen Odonnell M.D. ' Arnaldo Lakhani M.D. ' Baldev Painter M.D. ' MARY KAY Bhagat M.D. Freddie Palacios, MARY KAY [address], [address] [place] [address] [place] OFFICE NOTE SHANIKA PINA : 1950 DATE OF VISIT: 12/30/2011 PROBLEM LIST: 1. Stage I lobular carcinoma of the left breast, central portion. 2. Oncotype DX score of 22. HISTORY OF PRESENT ILLNESS: Ms. Pina is a very pleasant 61-year-old lady who presented with early stage breast cancer of the left breast. She had complete bilateral mastectomies per her choice and presented to me for further work-up. I opted to send Oncotype DX score on her to see if she would benefit from chemotherapy. She fell into the low end of the intermediate risk category with score of 22, which places her in a category that is really unclear if chemotherapy would be beneficial in this group or not. I spoke to Ms. Pina and her today regarding this score and the thought process behind why in this group the outcomes are unclear regarding benefit of chemotherapy. She would prefer not to have chemotherapy at this time and would just prefer hormone blockade, and so I will place her on Aromasin therapy. She is still working on quitting smoking, which would obviously delay her reconstruction. I have gone over the side effects of Aromasin and I think it would be a good choice for her going forward. If she decides chemotherapy is something she would also like we can always readdress it in the interim. SHANIKA PINA : 1950 DATE OF VISIT: 12/30/2011 PLAN: I will see her back in my clinic in three months and do history and physical at that time and see if there are any questions she has. Return to clinic in three months. Lisa Murphy M.D.* ELIJAH/marie Doc. ID [id number] Rev. #0 cc: Casimiro Melo M.D.* Page 2 of 2 Page 1 of 2 Authenticated by LISA MURPHY MD On 01/01/2012 11:34:36 AM * Interface, See Report - 12/09/2011 9:00 AM EDT Maricarmen Odonnell M.D. ' Arnaldo Lakhani M.D. ' Baldev Painter M.D. ' MARY KAY Bhagat M.D. ' Robert Murphy M.D. ' Lakisha Guillen M.D. ' Kaitlin Irby APRN [address] [place] [address] [place] [address] [place] OFFICE NOTE SHANIKA PINA : 1950 DATE OF VISIT: 03/16/2012 PROBLEM LIST: 1. Stage I lobular carcinoma of the left breast, central portion, status post bilateral mastectomy. 2. Oncotype DX score of 22. 3. Intolerance to Aromasin due to severe joint pain that occurred six weeks upon starting treatment. 4. Had switched to Tamoxifen and, unfortunately, had significant issues of hot flashes and the patient was not able to take that, including some pain that thought to be from the Tamoxifen. HISTORY OF PRESENT ILLNESS: Ms. Pina is a very pleasant 61-year-old lady with early stage breast cancer of the left breast. She had complete bilateral mastectomies and is undergoing reconstruction at this time with breast expanders in place. I had placed her on Tamoxifen when she did not tolerate Aromasin. Unfortunately, she was having hot flashes and, I think, some mental status changes that have been going on. Unfortunately, I do not think this is related to her Tamoxifen. She has stopped the Tamoxifen at this point, and is still having some issues with joint aches. She does have a history of fibromyalgia, which may have been exacerbated by her multiple issues that have been ongoing. OFFICE NOTE SAHNIKA PINA : 1950 DATE OF VISIT: 03/16/2012 PHYSICAL EXAMINATION: VITAL SIGNS: blood pressure 119/68, 99 pulse, 16 respirations, 97.9 temperature. GENERAL: I find a well appearing lady in no acute distress. BREASTS: She has bilateral MENA tubes in her breasts due to recent insertion of breast expanders. LUNGS: Clear bilaterally. CARDIOVASCULAR: Regular. ASSESSMENT AND PLAN: Ms. Pina is a 61 year old lady with Stage I lobular carcinoma, status post bilateral mastectomies. I would like to re-initiate Tamoxifen, probably when her are tubes are out and she is more physically well to initiate therapy. I also advised the hot flashes could be controlled with Vitamin E and if that does not work, black cohosh and at the last resort, Venlafaxine. She has early stage disease and her benefit from Tamoxifen is going to be fairly small. If she is not able to tolerate it due to symptoms, then we may have to stop adjuvant therapy altogether. I will see her back in my clinic in six weeks to see how she is doing. She should have been on Tamoxifen for a week or so prior to that. Will discuss if that is something she can tolerate going forward. Lisa Murphy M.D.* ELIJAH/rxcmt Doc. ID [id number] Rev. #0 cc: Casimiro Melo M.D.* Norberto Duff M.D.* Page 2 of 2 Page 1 of 2 Authenticated and Edited by LISA MURPHY MD On 03/17/12 6:50:23 PM * Interface, See Report - 12/09/2011 9:00 AM EDT Maricarmen Odonnell M.D. ' Arnaldo Lakhani M.D. ' Baldev Painter M.D. ' MARY KAY Bhagat M.D. ' Robert Murphy M.D. ' Lakisha Guillen M.D. ' Kaitlin Irby APRN [address] [place] [address], [place] [address] [place] [address] [place] OFFICE NOTE SHANIKA PINA : 1950 DATE OF VISIT: 05/04/2012 PROBLEM LIST: 1. Stage I lobular carcinoma of the left breast central portion status post bilateral mastectomy. 2. Oncotype DX score 22. 3. Intolerance to Aromasin due to severe joint pain. 4. Currently on tamoxifen. HISTORY OF PRESENT ILLNESS: The patient is a very pleasant 61-year-old lady who presents today for follow-up after being on tamoxifen for a couple weeks. I wanted to see how she tolerated this. She is actually doing reasonably well. She had a fairly significant skin reaction to itraconazole recently and seems to be recovered nicely. She is undergoing breast expansion at this time with Dr. Peace. She has also quit smoking and is using electronic cigarettes and Chantix to help her with that. No significant issues ongoing at this time. PAST MEDICAL HISTORY/SOCIAL HISTORY/FAMILY HISTORY: Unchanged since I last saw her. MEDICATIONS: Reviewed and include Flexeril, Ambien, Vytorin, Nasonex, Diclofenac, naproxen and tamoxifen. REVIEW OF SYSTEMS: Denies any headaches, vision changes, cough, sputum production. No fever, chills, nausea, vomiting. No diarrhea, constipation, occasional hot flashes present. All other review of systems is negative. SHANIKA PINA : 1950 DATE OF VISIT: 05/04/2012 PHYSICAL EXAMINATION: Blood pressure 138/70, pulse 84, temperature 97.8. GENERAL: Well appearing lady in no acute distress. Alert and oriented. LUNGS: Clear bilaterally. CARDIOVASCULAR: Regular. ABDOMEN: Soft, nontender. EXTREMITIES: No edema. NEURO: She is intact. PSYCH: Mood appears fairly stable. ASSESSMENT AND PLAN: 1. Stage I, ER/CO positive lobular carcinoma of the left breast. I have left her tamoxifen. At this time she wants to see me every six months or so and I am okay with that as long as she follows up with Dr. Duff in the interim. If she is having any issues she may call sooner and I can see her right away. She needs some kind interim letter to [facility] regarding her reconstruction which I am more than glad to do and we will see if that helps assist with completing her breast reconstruction. Return to the clinic in six months. Lisa Murphy M.D.* ELIJAH/pratibha Doc. ID [id number] Rev. #0 cc: Casimiro Melo M.D.* Gela Peace M.D.* Norberto Duff M.D.* Page 2 of 2 Page 1 of 2 Authenticated by LISA MURPHY MD On 05/06/2012 02:55:54 PM * Interface, See Report - 12/09/2011 9:00 AM EDT Maricarmen Odonnell M.D. ' Arnaldo Lakhani M.D. ' Baldev Painter M.D. ' MARY KAY Bhagat M.D. ' Robert Murphy M.D. ' Firas Freddie Guillen APRN [address], [address] [place] [id number] [place] OFFICE NOTE SHANIKA PINA : 1950 DATE OF VISIT: 01/31/2013 PROBLEM LIST: 1. Postmenopausal, hormone positive, HER-2 negative invasive left breast cancer diagnosed October 2011. A. Status post bilateral mastectomies and breast reconstruction with bilateral prostheses. B. Adjuvant hormonal therapy given since diagnosis with intolerance of initial Aromasin and subsequent tolerance of tamoxifen but with significant hot flashes. SUBJECTIVE: This very pleasant youthful 61-year-old retired lady returns. She has continued to have hot flashes. Nonetheless, she has continued to take her tamoxifen. She did develop horrible psoriasis and Dr. Covarrubias has been treating her for that. She has improved rather dramatically in the last month or month and a half. Contemplation of possible biologic therapy has been strongly considered. However, she has improved substantially as mentioned above. No recent fevers, chills, nausea, vomiting, or the like. CURRENT MEDICATIONS: Reconciled and listed on her EMR. ALLERGIES: Terconazole with terrible rash. HABITS: Does not smoke; does not drink to excess. SOCIAL HISTORY: . She is retired from a [employer] job. has some COPD but otherwise does okay. He is retired as well. She has a pet dog. She is G0, P0. PAST SURGICAL HISTORY: Includes her bilateral mastectomies, tonsillectomy, tubal ligation, ear tubes, cholecystectomy and bladder surgery; the cholecystectomy was just before her diagnosis of breast cancer. FAMILY HISTORY: Positive for hypertension and osteoarthritis. No history of psoriasis. No history of breast cancer. REVIEW OF SYSTEMS: Negative for any fevers, chills, night sweats, nausea or vomiting. Does have hot flashes. No shortness of breath, chest pain, palpitations, syncopal episodes or seizures. No bowel or bladder disturbance. Mood has been good for the most part. PHYSICAL EXAMINATION: GENERAL: Youthful, healthy-appearing lady in no acute distress. VITAL SIGNS: Stable. Afebrile. She has a tiny number of very small areas at this point involved by psoriasis. She has no adenopathy palpable. HEENT: Sclerae are anicteric. LUNGS: Lung colby are clear. CARDIAC: Regular rate and rhythm without murmur. ABDOMEN: Soft and nontender. No organomegaly is present. EXTREMITIES: She has no peripheral edema. BREASTS: Bilateral breast reconstruction noted-excellent cosmesis. ASSESSMENT AND PLAN: 1. Breast cancer ONESIMO. 2. Psoriasis - doing much better-it does not look like she will need Enbrel, Remicade or the like. 3. Hot flashes - will place on low-dose Megace 20 to 40 mg daily. 4. I will call her in about three weeks to see how she is doing. I will otherwise see her back in three months and I will obtain laboratory data today. All the above discussed with her. Maricarmen Odonnell M.D.* ANNEMARIE/rxdrs Doc. ID [id number] Rev. #0 Casimiro Melo M.D.* Gela Peace M.D.* Norberto Duff M.D.* Lorri Covarrubias M.D.* SHANIKA PINA : 1950 DATE OF VISIT: 01/31/2013 Page 2 of 2 Page 1 of 2 DOCUMENT CODE :COS: PHYSICIAN CODE :[id number]: Authenticated by MARICARMEN ODONNELL M.D. On 02/03/2013 01:23:39 PM * Interface, See Report - 12/09/2011 9:00 AM EDT Maricarmen Odonnell M.D. ' Arnaldo Lakhani M.D. ' Baldev Painter M.D. ' Freddie Taylor M.D. ' Paula Laws M.D. ' Kaitlin Irby APRN ' Amanda Polk APRN [address], [address] [place] [address] [place] OFFICE NOTE SHANIKA PINA : 1950 DATE OF VISIT: 02/20/2013 Ms. Pina feels a little better in terms of the hot flashes. She is taking 40 mg of Megace once a day. I will see her late this month, I believe. Maricarmen Odonnell M.D.* JJG/rxdrs Doc. ID [id number] Rev. #0 cc: SHANIKA PINA : 1950 DATE OF VISIT: 02/20/2013 Page 1 of 1 Page 1 of 1 DO NOT TEXT EDIT THIS LINE :[facility]:[id number]: Authenticated by MARICARMEN ODONNELL M.D. On 02/22/2013 09:36:57 AM documented in this encounter Plan of Treatment Upcoming Encounters Date Type Department Care Team (Late st Contact Info) Description 11/29/2025 11:30 AM EDT Office Visit [facility] [address] [place] [address] Tai Sauer MD [facility] [place] [address] documented as of this encounter Visit Diagnoses Not on filedocumented in this encounter Additional Health Concerns Infection Onset Date Last Indicated Resolved Time COVID Screen (preop/placement) 10/09/2019 10/09/2019 10/10/2019 2:57 PM EDT COVID Screen (preop/placement) 05/20/2021 05/20/2021 05/20/2021 4:27 PM EST documented as of this encounter Care Teams Training Engineer Relationship Specialty Start Date End Date Foreign Grossman DO [address] [place] [address] PCP - General Internal Medicine 08/10/24 documented as of this encounter
--- OUTSIDE RECORDS SUMMARY | 2024-12-20 12:32 | XMS_ITS | Encounter Summary ---
Author Organization [facility] Address [address] [place] [address] Care Team Providers Care Disk Operator Name Role Phone Foreign Grossman DO Primary Care Provider + Reason for Visit * Reason Onset Date Comments Surgical Clearance 11/03/2024 Encounter Details Date Type Department Care Team (Late st Contact Info) Description 11/03/2024 Telephone [facility] [address] [place] [address] Tai Sauer MD [address] [facility] [place] [address] Surgical Clearance Social History Tobacco Use Types Packs/Day Years Used Date Smoking Tobacco: Former Cigarettes 1 35 0 10/08/1976 - 10/09/2011 Electronic Cigarette Star sofiya: 2013 Smokeless Tobacco: Never Comments:Currently Vapes Alcohol Use [...] Start Date Job End Date 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 Pt was in office today getting EKG of which wasnormal , clearance letter sent . Pt made aware okay to proceed with scheduled surgery . * Telephone Encounter - Ricarda Perkins APRN - 11/06/2024 8:40 AM EDT Needs EKG if not being done at preop appt If EKG normal can clear with Acceptable cardiac risk, continue aspirin * Telephone Encounter - Latanya Medrano RN - 11/03/2024 2:29 PM EDT Pt to have rt total shoulder with Dr Nguyen 11/14/24 under [place]. Team is requesting CC along with guidance on ASA . Please advise. Fax results to [phone] Pt last seen 08/10/24- PROBLEM LIST: Aortic insufficiency: Echocardiogram, 02/19/2011: [id number] aortic insufficiency, mild MR and TR; mild LVH. Normal cardiac perfusion study, 02/16/2011, Olivia Sierra MD. dysfunction; trace aortic regurgitation. 08/23 2D echo: LVEF =70%. LV diastolic dysfunction (grade 1) impaired relaxation. Mild to moderate AR. 08/25 echo LVEF>65% IR mild/mod AI CAD 05/27 Coronary calcification appreciated on CT low dose Hypercholesterolemia 2018 LDL 119- 95 w prava 04/27 147/H>100?/ TG 54 LDL NC Cad A. 02/17 Stress echo wnl 7 minutes documented in this encounter Plan of Treatment Upcoming Encounters Date Type Department Care Team (Late st Contact Info) Description 11/29/2025 11:30 AM EDT Office Visit [facility] [address] [place] [address] [place] [address] Tai Sauer MD [address] [place] [address] documented as of this encounter Visit Diagnoses Not on filedocumented in this encounter Care Teams Disk Operator Relationship Specialty Start Date End Date Foreign Grossman DO [address] [place] [address] PCP - General Internal Medicine 08/10/24 documented as of this encounter
--- OUTSIDE RECORDS SUMMARY | 2024-12-20 12:32 | XMS_ITS | Encounter Summary ---
Author Organization Healthcare Address [address] [place] [address] Care Team Providers Care Rn Labor And Delivery Name Role Phone Norberto Duff MD Primary Care Provider [phone] Encounter Details Date Type Department Care Team (Late st Contact Info) Description 01/13/2022 Lab Requisition [facility] [address] [place] [address] Hank Judge MD [address] [facility] [address] [place] [address] Arteritis, unspecified (CMS/FORMERLY [facility]) Social History Tobacco Use Types Packs/Day Years [...] Description 06/12/2025 11:00 AM EDT Office Visit [facility] [address] [facility] [place] [address] Onelia Sun MD [address] [facility] [address] [place] [address] documented as of this encounter Procedures Procedure Name Priority Date/Time Associated Diagnosis Comments SURGICAL PATHOLOGY EXAM Routine 01/12/2022 Arteritis, unspecified (CMS/HCC) documented in this encounter Results * Surgical Pathology Exam (01/12/2022) Case Report Surgical Pathology Case: [id number] Authorizing Provider: Hank Judge MD Collected: 01/12/2022 Ordering Location: [facility] Lab Received: 01/13/2022 1109 Pathologist: Andi Carolina MD Specimen: Temporal Artery, Right temporal artery biopsy 01/14/2022 10:12 AM EDT [facility] Final Diagnosis A. RIGHT TEMPORAL ARTERY, BIOPSY: -BENIGN ARTERY; NO INFLAMMATION; NO FEATURES OF TEMPORAL ARTERITIS NOTED. 01/14/2022 10:12 AM EDT [facility] at 1012 EDT Clinical Information I77.6 - Arteritis, unspecified [ICD-10-CM] 01/14/2022 10:12 AM EDT [facility] Gross Description A. RIGHT TEMPORAL ARTERY BIOPSY Received in formalin labeled right temporal artery biopsy , and consists of a dean/brown, rubbery tissue fragment that measures 1.2 x 0.4 x 0.2 cm. Entirely submitted unmodified in cassette A1. Rema Grajeda 01/14/2022 10:12 AM EDT [facility] Intradepartmental Consultation with Agreement DR RENEA ARMSTRONG 01/14/2022 10:12 AM EDT [facility] Tissue Temporal artery specimen / Unknown 01/12/2022 01/13/2022 11:09 AM EDT us Hank Judge MD LAB PATHOLOGY ORDERABLES Final Result [facility] [address] [place] [address] documented in this encounter Visit Diagnoses Diagnosis Arteritis, unspecified (CMS/HCC) Arteritis, unspecified documented in this encounter Care Teams Rn Labor And Delivery Relationship Specialty Start Date End Date Norberto Duff MD [address] [place] [address] [address] [place] [address] PCP - General 08/16/20 documented as of this encounter
--- OUTSIDE RECORDS SUMMARY | 2024-12-20 12:32 | XMS_ITS | Encounter Summary ---
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 Carroll Michael MD [address] [place] [address] Phone: tel: fax: Referral ID Status Reason Start Date Expiration Date V isits Requested Visits Authorized [id number] Closed Specialty Services Required 03/02/2022 09/01/2023 1 1 Encounter Details Date Type Department Care Team (Late st Contact Info) Description 03/02/2022 Community [facility] [address] [place] [address] Carroll Michael MD [address] [place] [phone] 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 [...] Description 06/12/2025 11:00 AM EDT Office Visit [facility] [address] [place] [address] Onelia Sun MD [address] [place] [address] Scheduled Referrals Name Type Priority Associated Diagnoses Order Schedule Ambulatory referral to Neurology Outpatient Referral Routine 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
--- OUTSIDE RECORDS SUMMARY | 2024-12-20 12:32 | XMS_ITS ---
Author Organization [facility] Address [address] [address] Care Team Providers Care Loom Mechanic Name Role Phone Chauncey Foreign Shaver DO Primary Care Provider + Active Problems Problem Noted Date Diagnosed Date History of left breast cancer 07/19/2024 Osteoarthritis 08/18/2023 Assessment & Plan (08/19/2023 11:42 AM EDT): * Medications/treatments/interventions tried include: Tylenol, she has done physical therapy, Naproxen, gabapentin, Tramadol, Citalopram, Ambien, Otezla, Effexor, MTX/folic acid, She has seen dermatology, Duexis, Diclofenac, She saw Dr. Tone Sarmiento (Street Cleaner) in 2016, she lists that she is allergic/intolerant of oxycodone, Tremfya, Cosentyx, Lidocaine patches, Ambien, indomethacin, Lexapro, she has seen a security assessor, She saw Dr Sousa (neurosurgeon), she saw [...] Duexis, Diclofenac, She saw Dr. Tone Sarmiento (Street Cleaner) in 2016, she lists that she is allergic/intolerant of oxycodone, Tremfya, Cosentyx, Lidocaine patches, Ambien, indomethacin, Lexapro, she has seen a security assessor, She saw Dr Sousa (neurosurgeon), she saw an infections disease specialist (Dr. Ho), Cimzia, Etodolac, ibuprofen, Celebrex. Psoriatic arthritis with psoriasis Personnel Arbitrator is Dr. Carroll Michael Has previously tried [...] Previously severe psoriasis now resolved on Skyrizi. VHD (Moderate AR) 01/20/2016 Pain 01/20/2016 Overview (01/20/2016): Diffuse pain - ? fibromyalgia Aortic insufficiency Overview (02/12/2016): a. Echocardiogram, 02/19/2011: [id number] aortic insufficiency, mild MR and TR; mild [...] Lyrica 75mg BID 08/24 -- reported intolerance Current Treatment and Therapy Plans No current plan information found. Past Treatment and Therapy Plans ONCOLOGY SUPPORTIVE CARE 1 Plan Name Start Date Discontinue Date Treatment Medications Discontinue Reason Plan Provider Cycles OP Denosumab (Prolia) Q6M 02/05/2016 07/20/2024 denosumab (PROLIA) Other - Enter Reason in Comments Yong Odonnell MD 5 of 5 cycles started Resolved Problems Problem Noted Date Diagnosed Date Resolved Date Malignant neoplasm of centra l portion of left female breast 01/29/2016 07/20/2024 Cancer of left breast 01/20/20162024 Cancer Staging:Clinical stage from 07/29/2016:Stage IA(T1, N0, M0) - Signed by Yong Odonnell MD on 07/29/2016 Overview (02/12/2016): Images from the original note were not included. a. Diagnosed November 2011. b. Bilateral mastectomy, Dr. Cortes, general surgeon, [facility]. c. Breast reconstruction, Dr. Garcia, plastic surgeon, [facility]. d. Oncologist, Dr. Yong Odonnell, [facility]. Breast cancer 02/09/2018
--- OUTSIDE RECORDS SUMMARY | 2024-12-20 12:32 | XMS_ITS | Clinical Summary ---
Author Organization [employer] ([place], [place], [place], [place]) Address [address] [place] [address] Care Team Providers Care Base Manager Name Role Phone Leopoldo Stoll MD Primary [...] 1 tablet by mouth daily. Active omega 3-kkp-ibu-fish oil capsule Take 1 capsule (1,000 mg [...] Date Tino rded Speak language other than Citizen Of [place] at home Not on file 04/13/2023 Want [...] - T d or Tdap) 06/07/2006 06/07/1996 Medicare Initial AWV G0438 04/06/2018 Falls Risk Screening 04/05/2024 Tobacco Cessation Counseling and Screening (12+) 05/05/2024 05/05/2023 COVID-19 VACCINE ( season) 2024 04/16/2021, 06/16/2020, 05/19/2020 Influenza Vaccine (#1) 2024 01/20/2023, 2020 Respiratory Syncytial Virus (RSV) Adult or (1 - 1-dose 75+ series) 12/20/2027 Medical Devices Implanted Type Area Head Start Coordinator Device Identifier Shelf Expiration Date Model / Serial / Lot Scr Acet Canc Pinn 6.5x25mm 1217-25-500 - [id number] Implanted:Qty : 1 on 05/20/2023 by Shayne Staples MD at [facility] TOTAL JOINT CONSTRUCT Right: Hip J &J:DEPUY:DEPUY ORTHOPAEDIC 01/02/2033 1217-25-5 00 / / [id number] Liner Pincl Altrx [id number] 1221-36-052 - [id number] Implanted:Qty : 1 on 05/20/2023 by Shayne Staples MD at [facility] TOTAL JOINT CONSTRUCT Right: Hip J &J:DEPUY:DEPUY ORTHOPAEDIC 02/03/2028 1221-36-0 52 / / [id number] Cup Acet Gription Sz 52mm 1217-32-052 - [id number] Implanted:Qty : 1 on 05/20/2023 by Shayne Staples MD at [facility] TOTAL JOINT CONSTRUCT Right: Hip J &J:DEPUY:DEPUY ORTHOPAEDIC 03/04/2033 1217-32-0 52 / / [id number] Stem Actis Colld Std Sz 3 1010-11-030 - [id number] Implanted:Qty : 1 on 05/20/2023 by Shayne Staples MD at [facility] TOTAL JOINT CONSTRUCT Right: Hip J &J:DEPUY:DEPUY ORTHOPAEDIC 03/04/2033 1010-11-0 30 / / [id number] Head Fem Artc Ceramic Tpr36+5 1365-36-320 - [id number] Implanted:Qty : 1 on 05/20/2023 by Shayne Staples MD at [facility] TOTAL JOINT CONSTRUCT Right: Hip J &J:DEPUY:DEPUY ORTHOPAEDIC 02/03/2028 1365-36-3 [id number] Insurance [facility] MEDICARE PPO Advance Directives For more information, please contact: [phone] * Full Code (Latest Code Status on File) Date Activated Date Inactivated Comments 05/20/2023 5:49 PM 05/21/2023 2:48 PM Care Teams Base Manager Relationship Specialty Start Date End Date Leopoldo Stoll MD [address] [place] [address] PCP - General Family Medicine 05/19/23
--- OUTSIDE RECORDS SUMMARY | 2024-12-20 12:32 | XMS_ITS | Clinical Summary ---
Author Organization [facility] Address [address] [place] [address] Care Team Providers Care Pt Sitter Name Role Phone Norberto Duff MD Primary Care Provider [phone] Allergies Active Allergy Reactions Criticality Noted Date [...] eyes 04/14/2022 PCO (posterior capsular opacification), right Family History Medical History Relation Name Comments Hypertension Brother Heart disease Father Conversions - Other Mother Hearing deficit Relation Name Status Comments Brother Father Mother Social History Tobacco Use Types Packs/Day Years Used Date Smoking Tobacco: Former Cigarettes 1 40 1 972 - 2011 Passive Smoke Exposure: Yes Smokeless Tobacco: Never [...] Description 06/12/2025 11:00 AM EDT Office Visit [facility] [address] [place] [address] Onelia Sun MD [address] [place] [address] Health Maintenance Due Date Last Done Comments [facility]-Depression Screening 1950 [facility]-Hepatitis C Screening 1950 [facility]-Medicare Annual Wellness (AWV) 1950 [facility]-/Child/Adol SDOH Screenings [...] Screening 11/11/20222021, 05/20/2021, 03/21/2021, Additional history exists [id number] Vaccine ( season) 2024 04/16/2021, 06/30/2020, 06/16/2020, Additional history exists [facility]-Influenza Vaccine (#1) 12/04/202401/20, 01/21/2021, 12/31/2020, Additional history exists [facility]-Hepatitis A [...] patient's age to complete this topic Insurance MEDICARE Care Teams Pt Sitter Relationship Specialty Start Date End Date Norberto Duff MD [address] [place] [address] [address]1 [address]1 [place] String[place] [id number] [facility] - General 08/16/20
--- OUTSIDE RECORDS SUMMARY | 2024-12-20 12:32 | XMS_ITS | Encounter Summary ---
Author Organization Healthcare Address [address] [place] [address] Care Team Providers Care Satellite Manager Name Role Phone Norberto Duff MD Primary Care Provider [phone] Encounter Details Date Type Department Care Team (Late Contact Info) Description 03/23/2022 Lab Requisition [facility] [address] [place] [address] Social History Tobacco Use Types Packs/Day Years [...] Description 06/12/2025 11:00 AM EDT Office Visit [facility] [address] [place] [address] Onelia Sun MD [address] [place] [address] documented as of this encounter Visit Diagnoses Not on filedocumented in this encounter Care Teams Satellite Manager Relationship Specialty Start Date End Date Norberto Duff MD [address] [facility] [address] [place] [address] PCP - General 08/16/20 documented as of this encounter
--- OUTSIDE RECORDS SUMMARY | 2024-12-20 12:32 | XMS_ITS ---
Author Organization [facility] Address [address] [place] [id number] Care Team Providers Care Director Mba Name Role Phone Foreign Grossman DO Primary Care Provider + Rheumatology - External Fill Status:Enrolled (Active) Start date:01/28/2024 Enrollment date:01/28/2024 Enrollment reason:Identified as being on target medication Current support & services provided:Benefits Investigation, External Pharmacy Dispensing Linked medications:Risankizumab-rzaa (Active) Linked problems:Psoriatic arthritis (Active) Continued Care and Services Coordination
--- OUTSIDE RECORDS SUMMARY | 2024-12-20 12:32 | XMS_ITS | Encounter Summary ---
Author Organization [facility] ([place], [place], [place], [place]) Address [address] [place] [address] Care Team Providers Care Stage Electrician Name Role Phone Norberto Duff MD Primary Care Provider [phone] Jeff Toth MD Primary Care Provider [phone] Leopoldo Stoll MD Primary Care Provider [phone] Encounter Details Date Type Department Care Team (Late st Contact Info) Description 01/04/2022 Outside Orders [facility] [address] [place] [address] Shayne Estrada MD [address] [facility] [address] [place] [address] Giant cell arteritis (HCC) (Primary Dx) Social [...] - 0.90 mg/dL 01/04/2022 12:02 PM EDT [facility] Blood Venipuncture / Unknown 01/04/2022 10:55 AM EDT 01/04/2022 10:58 AM EDT Shayne Estrada MD LAB BLOOD ORDERABLES Final Resul t Performing Organization Address [facility] de Phone Number [facility] [address] [phone] * Sedimentation rate (01/04/2022 10:55 AM EDT) Sed Rate 10 0 - 30 mm/HR 01/04/2022 11:35 AM EDT [facility] Hematocrit 42.1 % 01/04/2022 11:35 AM EDT [facility] Blood Venipuncture / Unknown 01/04/2022 10:55 AM EDT 01/04/2022 10:58 AM EDT Shayne Estrada MD LAB BLOOD ORDERABLES Final Resul t Performing Organization Address [facility] Co de Phone Number [facility] [address] [phone] documented in this encounter Visit Diagnoses Diagnosis Giant cell arteritis (HCC)- Primary Giant cell arteritis documented in this encounter Care Teams Stage Electrician Relationship Specialty Start Date End Date Norberto Duff MD [address] [place] [address] PCP - General Family Medicine 01/04/22 05/04/23 Jeff Toth MD [address] [place] [address] PCP - General Rheumatology 05/05/23 05/05/23 Leopoldo Stoll MD [address] [place] [address] PCP - General Family Medicine 05/19/23 documented as of this encounter
--- OUTSIDE RECORDS SUMMARY | 2024-12-20 12:32 | XMS_ITS | Referral Summary ---
Author Organization [facility] ([place], [place], [place], [place]) Address [address] [place] [address] Care Team Providers Care Program Manager Name Role Phone Leopoldo Stoll MD [...] 1 tablet by mouth daily. Active omega 3-szj-pym-fish oil capsule Take 1 capsule (1,000 mg [...] Date Tino rded Speak language other than [place] at home Not on file 04/13/2023 Want [...] on file Medical Devices Implanted Type Area Infusion Pharmacist Device Identifier Shelf Expiration Date Model / Serial / Lot Scr Acet Canc Pinn 6.5x25mm 1217-25-500 - [id number] Implanted:Qty : 1 on 05/20/2023 by Shayne Staples MD at [facility] TOTAL JOINT CONSTRUCT Right: Hip J &J:DEPUY:DEPUY ORTHOPAEDIC 01/02/2033 1217-25-5 00 / / [id number] Liner Pincl Altrx [id number] 1221-36-052 - [id number] Implanted:Qty : 1 on 05/20/2023 by Shayne Staples MD at [facility] TOTAL JOINT CONSTRUCT Right: Hip J &J:DEPUY:DEPUY ORTHOPAEDIC 02/03/2028 1221-36-0 52 / / [id number] Cup Acet Gription Sz 52mm 1217-32-052 - [id number] Implanted:Qty : 1 on 05/20/2023 by Shayne Staples MD at [facility] TOTAL JOINT CONSTRUCT Right: Hip J &J:DEPUY:DEPUY ORTHOPAEDIC 03/04/2033 1217-32-0 52 / / [id number] Stem Actis Colld Std Sz 3 1010-11-030 - [id number] Implanted:Qty : 1 on 05/20/2023 by Shayne Staples MD at [facility] TOTAL JOINT CONSTRUCT Right: Hip J &J:DEPUY:DEPUY ORTHOPAEDIC 03/04/2033 1010-11-0 30 / / [id number] Head Fem Artc Ceramic Tpr36+5 1365-36-320 - [id number] Implanted:Qty : 1 on 05/20/2023 by Shayne Staples MD at [facility] TOTAL JOINT CONSTRUCT Right: Hip J &J:DEPUY:DEPUY ORTHOPAEDIC 02/03/2028 1365-36-3 20 / / [id number] Insurance [employer] MEDICARE PPO Advance Directives For more information, please contact: [phone] * Full Code (Latest Code Status on File) Date Activated Date Inactivated Comments 05/20/2023 5:49 PM 05/21/2023 2:48 PM Care Teams Program Manager Relationship Specialty Start Date End Date Leopoldo Stoll MD [address] [place] [address] PCP - General Family Medicine 05/19/23
== END 2024-12-19 23:59 | disposition home or self-care (01) ==
LOC: LAB.DROPOF 12-20 12:26
PROVIDERS: PCP Nurse Practitioner Family; Visit Provider Nurse Practitioner Family
DX: M25.552 Pain in left hip (principal); M81.0 Age-related osteoporosis without current pathological fracture; L40.50 Arthropathic psoriasis, unspecified; G47.33 Obstructive sleep apnea (adult) (pediatric); J06.9 Acute upper respiratory infection, unspecified; R04.2 Hemoptysis; Z72.89 Other problems related to lifestyle; Z13.220 Encounter for screening for lipoid disorders; Z13.21 Encounter for screening for nutritional disorder; Z11.59 Encounter for screening for other viral diseases; Z11.4 Encounter for screening for human immunodeficiency virus [HIV]; R53.83 Other fatigue; E11.9 Type 2 diabetes mellitus without complications; I10 Essential (primary) hypertension; R41.3 Other amnesia
CPT/HCPCS: 80053; 80061; 81001; 82306; 82607; 82728; 83036; 83540; 83550; 84439; 84443; 85025; 86803; 87086; 87389

== ENCOUNTER 2024-12-26 08:59 | Day surgery (SDC) | payer MEDICARE, SELFPAY ==
[2024-12-26 09:12] VITALS: BP 149/72; PULSE 74; RESP 18; O2SAT 97; BMI 29.2
[2024-12-26] MEDS: LIDOCAINE 1% 5ML PF VIAL 5 ML (09:13)
[2024-12-26] MEDS: BUPIVACAINE 0.25% 10ML INJ 25 MG IJ (09:13)
[2024-12-26] MEDS: DEXAMETHASONE 10MG/ML 1ML VIAL 10 MG (09:13)
[2024-12-26 09:14] VITALS: BP 152/69; PULSE 67; RESP 18; O2SAT 95
[2024-12-26 09:16] VITALS: BP 152/69; PULSE 67; RESP 18; O2SAT 95
[2024-12-26 09:23] VITALS: BP 158/80; PULSE 72; RESP 16; O2SAT 98
--- NOTE | 2024-12-26 09:24 | EXP.PAIN.PRO ---
Procedure Date: 12/26/24 Time: 09:10 Anesthesiologist:: Hank Nichols CRNA Complications:: None Pre-procedure Diagnosis:: Right shoulder pain. Status post right shoulder replacement. Post-procedure Diagnosis:: Same. Indications for Procedure:: Patient is a pleasant 74-year-old female who comes her clinic today for right suprascapular nerve block. Patient describes right shoulder pain as constant, dull, aching. Patient has 5/5 strength in the right arm. However, limited range of motion secondary to right shoulder pain following right shoulder joint replacement. Procedure Details:: Details of the procedure explained to the patient. The patient taken procedure and placed in the sitting position. The over the right shoulder and scapula was cleaned using chlorhexidine as a cleansing solution. Using a 25-gauge inch and half needle the right suprascapular notch was identified. After negative aspiration 4 cc of 1% lidocaine +4 cc of 0.25% Marcaine and 10 mg of dexamethasone was injected. Patient tolerated procedure without difficulty. No complications. Plan and Disposition:: Patient was discharged without incident.
== END 2024-12-26 09:30 | disposition home or self-care (01) ==
PROVIDERS: PCP Internal Medicine; Visit Provider Nurse Anesthetist, Certified Registered
DX: M25.511 Pain in right shoulder (principal); Z96.611 Presence of right artificial shoulder joint; Z85.3 Personal history of malignant neoplasm of breast; G47.33 Obstructive sleep apnea (adult) (pediatric); M85.80 Other specified disorders of bone density and structure, unspecified site; L40.50 Arthropathic psoriasis, unspecified; Z87.891 Personal history of nicotine dependence; Z88.8 Allergy status to other drugs, medicaments and biological substances; Z79.82 Long term (current) use of aspirin; Z79.899 Other long term (current) drug therapy
CPT/HCPCS: 64418; J0665; J1100; J2003

== ENCOUNTER 2025-01-01 14:00 | Outpatient (RCR) | payer MEDICARE, SELFPAY | END 2025-01-01 23:59 | disposition home or self-care (01) | LOC: OT 14:00 | PROVIDERS: Visit Provider Physician Assistant Surgical | DX: Z47.89 Encounter for other orthopedic aftercare (principal); Z96.619 Presence of unspecified artificial shoulder joint | CPT/HCPCS: 97014; 97032; 97035; 97110; 97140; 97165; 97530; G0283 ==

== ENCOUNTER 2025-01-17 12:03 | Outpatient (CLI) | payer MEDICARE, SELFPAY ==
--- NOTE | 2025-01-17 12:07 | XR_ITS ---
FINAL REPORT CLINICAL HISTORY: Neck pain COMPARISON: None available. FINDINGS: AP, lateral and odontoid views of the cervical spine were obtained. Postoperative changes from anterior fusion of C3-C5 are noted. The hardware appears intact. Alignment appears within normal limits. There is degenerative disc disease, most pronounced at C5-6 and C6-7. Precervical soft tissues are normal. IMPRESSION: Postoperative and degenerative changes without acute abnormality. If pain persists, consider MRI. Authenticated and ERN
--- OUTSIDE RECORDS SUMMARY | 2025-01-17 12:08 | XMS_ITS | Encounter Summary ---
Author Organization [facility] Address [address] [place] [address] Care Team Providers Care Shoeblack Name Role Phone Norberto Duff MD Primary Care Provider [phone] Encounter Details Date Type Department Care Team (Late st Contact Info) Description 01/13/2022 Lab Requisition [facility] [address] [place] [address] Hank Judge MD [address] [facility] [address] [place] [address] Arteritis, unspecified (CMS/[facility]) Social History Tobacco Use Types Packs/Day Years [...] Description 06/12/2025 11:00 AM EDT Office Visit [facility] [address] [facility] [place] [address] Onelia Sun MD [address] [facility] [address] [place] [address] documented as of this encounter Procedures Procedure Name Priority Date/Time Associated Diagnosis Comments SURGICAL PATHOLOGY EXAM Routine 01/12/2022 Arteritis, unspecified (CMS/HCC) documented in this encounter Results * Surgical Pathology Exam (01/12/2022) Case Report Surgical Pathology Case: [id number] Authorizing Provider: Hank Judge MD Collected: 01/12/2022 Ordering Location: [facility] Lab Received: 01/13/2022 1109 Pathologist: Andi Carolina MD Specimen: Temporal Artery, Right temporal artery biopsy 01/14/2022 10:12 AM EDT [facility] Final Diagnosis A. RIGHT TEMPORAL ARTERY, BIOPSY: -BENIGN ARTERY; NO INFLAMMATION; NO FEATURES OF TEMPORAL ARTERITIS NOTED. 01/14/2022 10:12 AM EDT [facility] at 1012 EDT Clinical Information I77.6 - Arteritis, unspecified [ICD-10-CM] 01/14/2022 10:12 AM EDT [facility] Gross Description A. RIGHT TEMPORAL ARTERY BIOPSY Received in formalin labeled right temporal artery biopsy , and consists of a dean/brown, rubbery tissue fragment that measures 1.2 x 0.4 x 0.2 cm. Entirely submitted unmodified in cassette A1. Rema Grajeda 01/14/2022 10:12 AM EDT [facility] Intradepartmental Consultation with Agreement DR RENEA ARMSTRONG 01/14/2022 10:12 AM EDT [facility] Tissue Temporal artery specimen / Unknown 01/12/2022 01/13/2022 11:09 AM EDT us Hank Judge MD LAB PATHOLOGY ORDERABLES Final Result [facility] [address] [place] [address] documented in this encounter Visit Diagnoses Diagnosis Arteritis, unspecified (CMS/HCC) Arteritis, unspecified documented in this encounter Care Teams Shoeblack Relationship Specialty Start Date End Date Norberto Duff MD [address] [place] [address] [address]1 [address] [place] [address] PCP - General 08/16/20 documented as of this encounter
--- OUTSIDE RECORDS SUMMARY | 2025-01-17 12:08 | XMS_ITS | Encounter Summary ---
Author Organization [facility] Address [address] [place] [address] Care Team Providers Care Analyst Food And Beverage Name Role Phone Foreign Grossman Primary Care Provider + Encounter Details Date Type Department Care Team (Late st Contact Info) Description 12/09/2011 Conversion Encounter [facility] HISTORICAL CONV [address] [place] [address] Interface, See Report Social History [...] M.D. ' Arnaldo Lakhani M.D. ' Baldev Paitner M.D. ' MARY KAY Bhagat M.D. Freddie Palacios, MARY KAY [address] [facility], [address] [place] [address] [employer] OFFICE NOTE SHANIKA PINA : 1950 DATE [...] months. Lisa Murphy M.D.* ELIJAH/marie Doc. ID [id number] Rev. #0 cc: Casimiro Melo M.D.* Page 2 of 2 Page 1 of 2 Authenticated by LISA MURPHY MD On 01/01/2012 11:34:36 AM * Interface, See Report - 12/09/2011 9:00 AM EDT Maricarmen Odonnell M.D. ' Arnaldo Lakhani M.D. ' Baldev Painter M.D. ' MARY KAY Bhagat M.D. ' Robert Murphy M.D. ' Lakisha Guillen M.D. ' Kaitlin Irby APRN [address] [place] [address] [place] [address] [employer] OFFICE NOTE SHANIKA PINA : 1950 DATE [...] issues that have been ongoing. OFFICE NOTE SHANIKA PINA : 1950 DATE [...] forward. Lisa Murphy M.D.* ELIJAH/rxcmt Doc. ID [id number] Rev. #0 cc: Casimiro Melo M.D.* Norberto [...] Lakisha Guillen M.D. ' Kaitlin Irby APRN [address] [place] [address], [place] [address] [place] [address] [employer] OFFICE NOTE SHANIKA PINA : 1950 DATE [...] stable. ASSESSMENT AND PLAN: 1. Stage I, ER/SC positive lobular carcinoma of the left breast. [...] She needs some kind interim letter to [facility] regarding her reconstruction which I am more than glad to do and we will see if that helps assist with completing her breast reconstruction. Return to the clinic in six months. Lisa Murphy M.D.* ELIJAH/pratibha Doc. ID [id number] Rev. #0 cc: Casimiro Melo M.D.* Gela [...] M.D. ' Firas Freddie Guillen APRN [address] [facility], [address] [place] [id number] [employer] OFFICE NOTE SHANIKA PINA : 1950 DATE [...] HISTORY: . She is retired from a [employer] job. has some COPD but otherwise does [...] her. Maricarmen Odonnell M.D.* ANNEMARIE/rxdrs Doc. ID [id number] Rev. #0 Casimiro Melo M.D.* Gela Peace M.D.* Norberto Duff M.D.* Lorri Covarrubias M.D.* SHANIKA PINA : 1950 DATE OF VISIT: 01/31/2013 Page 2 of 2 Page 1 of 2 DOCUMENT CODE :COS: PHYSICIAN CODE :[id number]: Authenticated by MARICARMEN ODONNELL M.D. On 02/03/2013 01:23:39 PM * Interface, See Report - 12/09/2011 9:00 AM EDT Maricarmen Odonnell M.D. ' Arnaldo Lakhani M.D. ' Baldev Painter M.D. ' Freddie Taylor M.D. ' Paula Laws M.D. ' Kaitlin Irby APRN ' Amanda Polk APRN [address] [facility], [address] [place] [address] [employer] OFFICE NOTE SHANIKA PINA : 1950 DATE OF VISIT: 02/20/2013 Ms. Pina feels a little better in terms of the hot flashes. She is taking 40 mg of Megace once a day. I will see her late this month, I believe. Maricarmen Odonnell M.D.* JJG/rxdrs Doc. ID [id number] Rev. #0 cc: SHANIKA PINA : 1950 DATE OF VISIT: 02/20/2013 Page 1 of 1 Page 1 of 1 DO NOT TEXT EDIT THIS LINE :[facility]:[id number]: Authenticated by MARICARMEN ODONNELL M.D. On 02/22/2013 09:36:57 AM documented in this encounter Plan of Treatment Upcoming Encounters Date Type Department Care Team (Late st Contact Info) Description 11/29/2025 11:30 AM EDT Office Visit [facility] [address] [facility] [place] [address] Tai Sauer MD [facility] [place] [address] documented as of this encounter Visit Diagnoses Not on filedocumented in this encounter Additional Health Concerns Infection Onset Date Last Indicated Resolved Time COVID Screen (preop/placement) 10/09/2019 10/09/2019 10/10/2019 2:57 PM EDT COVID Screen (preop/placement) 05/20/2021 05/20/2021 05/20/2021 4:27 PM EST documented as of this encounter Care Teams Analyst Food And Beverage Relationship Specialty Start Date End Date Foreign Grossman DO [address] [place] [address] [place] [address] PCP - General Internal Medicine 08/10/24 documented as of this encounter
--- OUTSIDE RECORDS SUMMARY | 2025-01-17 12:08 | XMS_ITS | Clinical Summary ---
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 04/14/2022 PCO (posterior capsular opacification), right Resolved Problems Problem Noted Date Diagnosed Date Resolved Date Other localized visual field defect, bilateral 04/14/2022 12/24/2024 Family History Medical History Relation Name Comments [...] Description 06/12/2025 11:00 AM EDT Office Visit [facility] [address] [place] [address] Onelia Sun MD [address] [address] Health Maintenance Due Date Last Done Comments [facility]-Depression Screening 1950 [facility]-Hepatitis C Screening 1950 [facility]-Medicare Annual Wellness (AWV) 1950 [facility]-Infant/Child/Adol SDOH Screenings 1950 [facility]- SDOH Screenings 1970 [...] 1-dose series) 2012 [facility]-Bone Density Scan 07/08/2019 07/07/2017 [facility]-Lung Cancer Screening 11/11/20222021, 05/20/2021, 03/21/2021, Additional history exists [id number] Vaccine ( season) 2024 04/16/2021, 06/30/2020, 06/16/2020, [...] complete this topic Insurance MEDICARE Care Teams Hand Mica Plate Layer Relationship Specialty Start Date End Date Norberto Duff MD [address] [place] [address] [address] [place] Stringer [id number] [facility] - General 08/16/20
--- OUTSIDE RECORDS SUMMARY | 2025-01-17 12:08 | XMS_ITS | Clinical Summary ---
Author Organization [facility] Address [address] [place] [address] Phone Care Team Providers Care Police Radio Dispatcher Name Role Phone Jae Ho MD [ ] Conditions or Problems Problem Name Problem Code Onset Date Status Entry Date Provider Comment Standard Description Annotate Benign Essential Hypertension 58213693 (SNOMED CT) Active Mary Bull Benign hypertension Intertrigo 38450422 (SNOMED CT) Active Mary Bull Intertrigo Abnormal CXR 207975691 (SNOMED CT) Active Mayr Bull Standard chest X-ray abnormal Plaque psoriasis 689815267 (SNOMED CT) Active Mary Bull Plaque psoriasis Medications Medication Instructions Start Date Stop Date Generic Name [facility] Provider AMBIEN 10 MG TABS ZOLPIDEM TARTRATE [id number] Eleanor Mansfield RN TRAMADOL HCL 50 MG TABS TRAMADOL HCL 28209456136 Eleanor Mansfield RN PRAVASTATIN SODIUM 40 MG TABS PRAVASTATIN SODIUM 68121587514 Eleanor Mansfield RN LORATADINE 10 MG TABS LORATADINE 64825779317 Eleanor Mansfield RN IBUPROFEN PM 200-38 MG TABS IBUPROFEN-DIPHENH YDRAMINE CIT 26692213886 Eleanor Mansfield RN CALCIUM+D3 TABS CALCIUM CARB-CHOLECALCIFE ROL TABS 13410400252 Eleanor Mansfield RN FLUTICASONE PROPIONATE 50 MCG/ACT SUSP FLUTICASONE PROPIONATE 21677246657 Eleanor Mansfield RN LIDOPURE PATCH 5 % KIT LIDOCAINE-ADHESIV E SHEETS 37508570602 Eleanor Mansfield RN NYSTATIN 728545 UNIT/GM CREA NYSTATIN 58288272548 Eleanor Mansfield RN HYDROCORTISONE 2.5 % CREA HYDROCORTISONE 98658446502 Eleanor Mansfield RN MOMETASONE FUROATE 0.1 % OINT MOMETASONE FUROATE 97288183550 Eleanor Mansfield RN ENSTILAR 0.005-0.064 % FOAM CALCIPOTRIENE-BET AMETH DIPROP 46730777895 Eleanor Mansfield RN Medications Administered No information [...] Description Start Date HEALTHCARE SURROGATE POWER OF OIL PUMP STATION OPERATOR CHIEF LIVING WILL ON FILE
--- OUTSIDE RECORDS SUMMARY | 2025-01-17 12:08 | XMS_ITS | Encounter Summary ---
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 Carroll Michael MD [address] [place] [address] Phone: tel: fax: Referral ID Status Reason Start Date Expiration Date V isits Requested Visits Authorized [id number] Closed Specialty Services Required 03/02/2022 09/01/2023 1 1 Encounter Details Date Type Department Care Team (Late st Contact Info) Description 03/02/2022 [facility] [address] [place] [address] Carroll Michael MD [address] [place] [phone] 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 [...] Description 06/12/2025 11:00 AM EDT Office Visit [facility] [address] [place] [phone] Onelia Sun MD [address] [place] [address] Scheduled Referrals Name Type Priority Associated Diagnoses Order Schedule Ambulatory referral to Neurology Outpatient Referral Routine 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
--- OUTSIDE RECORDS SUMMARY | 2025-01-17 12:08 | XMS_ITS | Encounter Summary ---
Author Organization Healthcare Address [address] [place] [address] Care Team Providers Care Cosmetics Demonstrator Name Role Phone Norberto Duff MD Primary Care Provider [phone] Encounter Details Date Type Department Care Team (Late Contact Info) Description 03/23/2022 Lab Requisition [facility] [address] [place] [address] Social History Tobacco Use Types Packs/Day Years [...] Description 06/12/2025 11:00 AM EDT Office Visit [facility] [address] [place] [address] Onelia Sun MD [address] [place] [phone] documented as of this encounter Visit Diagnoses Not on filedocumented in this encounter Care Teams Cosmetics Demonstrator Relationship Specialty Start Date End Date Norberto Duff MD [address] [facility] [address] [place] [address] PCP - General 08/16/20 documented as of this encounter
--- OUTSIDE RECORDS SUMMARY | 2025-01-17 12:09 | XMS_ITS | Clinical Summary ---
Author Organization [employer] ([place], [place], [place], [place]) Address [address] [place] [address] Care Team Providers Care Administrative Support Manager Name Role Phone Leopoldo Stoll MD [...] 1 tablet by mouth daily. Active omega 2-tok-qoq-fish oil capsule Take 1 capsule (1,000 mg [...] Date Tino rded Speak language other than Cambodian at home Not on file 04/13/2023 Want [...] series) 12/20/2027 Medical Devices Implanted Type Area Casino Slot Supervisor Device Identifier Shelf Expiration Date Model / Serial / Lot Scr Acet Canc Pinn 6.5x25mm 1217-25-500 - [id number] Implanted:Qty : 1 on 05/20/2023 by Shayne Staples MD at [facility] TOTAL JOINT CONSTRUCT Right: Hip J &J:DEPUY:DEPUY ORTHOPAEDIC 01/02/2033 1217-25-5 00 / / [id number] Liner Pincl Altrx [id number] 1221-36-052 - [id number] Implanted:Qty : 1 on 05/20/2023 by Shayne Staples MD at [facility] TOTAL JOINT CONSTRUCT Right: Hip J &J:DEPUY:DEPUY ORTHOPAEDIC 02/03/2028 1221-36-0 52 / / [id number] Cup Acet Gription Sz 52mm 1217-32-052 - [id number] Implanted:Qty : 1 on 05/20/2023 by Shayne Staples MD at [facility] TOTAL JOINT CONSTRUCT Right: Hip J &J:DEPUY:DEPUY ORTHOPAEDIC 03/04/2033 1217-32-0 52 / / [id number] Stem Actis Colld Std Sz 3 1010-11-030 - [id number] Implanted:Qty : 1 on 05/20/2023 by Shayne Staples MD at [facility] TOTAL JOINT CONSTRUCT Right: Hip J &J:DEPUY:DEPUY ORTHOPAEDIC 03/04/2033 1010-11-0 30 / / [id number] Head Fem Artc Ceramic Tpr36+5 1365-36-320 - [id number] Implanted:Qty : 1 on 05/20/2023 by Shayne Staples MD at [facility] TOTAL JOINT CONSTRUCT Right: Hip J &J:DEPUY:DEPUY ORTHOPAEDIC 02/03/2028 1365-36-3 [id number] Insurance [facility] MEDICARE PPO Advance Directives For more information, please contact: [phone] * Full Code (Latest Code Status on File) Date Activated Date Inactivated Comments 05/20/2023 5:49 PM 05/21/2023 2:48 PM Care Teams Administrative Support Manager Relationship Specialty Start Date End Date Leopoldo Stoll MD [address] [place] [address] PCP - General Family Medicine 05/19/23
--- OUTSIDE RECORDS SUMMARY | 2025-01-17 12:09 | XMS_ITS | Encounter Summary ---
Author Organization [employer] ([place], [place], [place], [place]) Address [address] [place] [address] Care Team Providers Care Commercial Credit Lead Name Role Phone Norberto Duff MD Primary Care Provider [phone] Jeff Toth MD Primary Care Provider Leopoldo Stoll MD Primary Care Provider Encounter Details Date Type Department Care Team (Late st Contact Info) Description 01/04/2022 Outside Orders [facility] [address] [place] [address] Shayne Estrada MD [address] [facility] [address] [place] [address] Giant cell arteritis (HCC) (Primary Dx) Social [...] - 0.90 mg/dL 01/04/2022 12:02 PM EDT [facility] Blood Venipuncture / Unknown 01/04/2022 10:55 AM EDT 01/04/2022 10:58 AM EDT Shayne Estrada MD LAB BLOOD ORDERABLES Final Resul t Performing Organization Address [facility] de Phone Number [facility] [address] [phone] * Sedimentation rate (01/04/2022 10:55 AM EDT) Sed Rate 10 0 - 30 mm/HR 01/04/2022 11:35 AM EDT [facility] Hematocrit 42.1 % 01/04/2022 11:35 AM EDT [facility] Blood Venipuncture / Unknown 01/04/2022 10:55 AM EDT 01/04/2022 10:58 AM EDT Shayne Estrada MD LAB BLOOD ORDERABLES Final Resul t Performing Organization Address [facility] Co de Phone Number [facility] [address] [phone] documented in this encounter Visit Diagnoses Diagnosis Giant cell arteritis (HCC)- Primary Giant cell arteritis documented in this encounter Care Teams Commercial Credit Lead Relationship Specialty Start Date End Date Norberto Duff MD [address] [place] [address] PCP - General Family Medicine 01/04/22 05/04/23 Jeff Toth MD [address] [place] [address] PCP - General Rheumatology 05/05/23 05/05/23 Leopoldo Stoll MD [address] [place] [address] PCP - General Family Medicine 05/19/23 documented as of this encounter
--- OUTSIDE RECORDS SUMMARY | 2025-01-17 12:09 | XMS_ITS ---
Author Organization [facility] Address [address] [place] [address] Care Team Providers Care Chute Loader Name Role Phone Chauncey Foreign Shaver DO Primary Care Provider + Active Problems Problem Noted Date Diagnosed Date History of left breast cancer 07/19/2024 Osteoarthritis 08/18/2023 Assessment & Plan (08/19/2023 11:42 AM EDT): * Medications/treatments/interventions tried include: Tylenol, she has done physical therapy, Naproxen, gabapentin, Tramadol, Citalopram, Ambien, Otezla, Effexor, MTX/folic acid, She has seen dermatology, Duexis, Diclofenac, She saw Dr. Tone Sarmiento (Manager Of Global) in 2016, she lists that she is allergic/intolerant of oxycodone, Tremfya, Cosentyx, Lidocaine patches, Ambien, indomethacin, Lexapro, she has seen a steel box toe inserter, She saw Dr Sousa (neurosurgeon), she saw [...] Duexis, Diclofenac, She saw Dr. Tone Sarmiento (Manager Of Global) in 2016, she lists that she is allergic/intolerant of oxycodone, Tremfya, Cosentyx, Lidocaine patches, Ambien, indomethacin, Lexapro, she has seen a steel box toe inserter, She saw Dr Sousa (neurosurgeon), she saw an infections disease specialist (Dr. Ho), Cimzia, Etodolac, ibuprofen, Celebrex. Psoriatic arthritis with psoriasis Data Integration Architect is Dr. Carroll Michael Has previously tried [...] Aortic insufficiency Overview (02/12/2016): a. Echocardiogram, 02/19/2011: Alfe-dp-pzfsiile aortic insufficiency, mild MR and TR; mild [...] b. Bilateral mastectomy, Dr. Cortes, general surgeon, [facility]. c. Breast reconstruction, Dr. Garcia, plastic surgeon, [facility]. d. Oncologist, Dr. Yong Odonnell, [facility]. Breast cancer 02/09/2018
--- OUTSIDE RECORDS SUMMARY | 2025-01-17 12:09 | XMS_ITS | Clinical Summary ---
[facility] Organization [facility] Address [address] [place] [address] Care Team Providers Care Strategic Solutions Consultant Name Role Phone Foreign Grossman DO Primary [...] Duexis, Diclofenac, She saw Dr. Tone Sarmiento (Recycle Driver) in 2016, she lists that she is allergic/intolerant of oxycodone, Tremfya, Cosentyx, Lidocaine patches, Ambien, indomethacin, Lexapro, she has seen a ice scraper, She saw Dr Sousa (neurosurgeon), she saw [...] Duexis, Diclofenac, She saw Dr. Tone Sarmiento (Recycle Driver) in 2016, she lists that she is allergic/intolerant of oxycodone, Tremfya, Cosentyx, Lidocaine patches, Ambien, indomethacin, Lexapro, she has seen a ice scraper, She saw Dr Sousa (neurosurgeon), she saw an infections disease specialist (Dr. Ho), Cimzia, Etodolac, ibuprofen, Celebrex. Psoriatic arthritis with psoriasis Load Test Mechanic is Dr. Carroll Michael Has previously tried [...] Aortic insufficiency Overview (02/12/2016): a. Echocardiogram, 02/19/2011: Zqww-pf-covkybyk aortic insufficiency, mild MR and TR; mild [...] plastic surgeon, [facility]. albino. Oncologist, Dr. Yong Odonnell, [facility]. Breast cancer 02/09/2018 Encounters Date Type Department Care Team Description 11/03/2024 Telephone [facility] [address] [place] [address] Tai Sauer MD Surgical Clearance [...] Description 11/29/2025 11:30 AM EDT Office Visit [facility] [address] [place] [address] [place] [address] Tai Sauer MD [address] [facility] [address] [place] [address] Health Maintenance Due Date Last [...] 08/18/2023 , 11/11/2021, 11/11/2021, Additional history exists INFLUENZA VACCINE 11/03/2024 01/20/2023, , 12/31/2020, Additional history exists COVID-19 Vaccine (2024-2 6 season) 2024 04/16/2021, 06/30/2020, 06/16/2020, Additional history exists DXA SCAN 07/03/2026 07/03/2024, 04/07/2017, 07/07/2017, Additional history exists Procedures Procedure Name [...] 06/11/2022 7:08 PM EST Performed at: [address] [address] [place], [place] [id number] Piece Marker Small Arms: Derrick Faustin MD, Phone: [phone] Patient Fasting: N us Tai Sauer MD LAB BLOOD ORDERABLES Final Res ult [facility] ([facility]BULATORY) [address] [place] [address], [place] [phone] [facility] [address] [place] [address], [place] [phone] from Last 3 Months or Most Recently Relevant to Health Maintenance Insurance [facility] Medicare [employer] PPO Care Teams Strategic Solutions Consultant Relationship Specialty Start Date End Date Foreign Grossman DO [address] [place] [address] [address] [phone] PCP - General Internal Medicine 08/10/24
--- OUTSIDE RECORDS SUMMARY | 2025-01-17 12:09 | XMS_ITS ---
Author Organization [facility] Address [address] [place] [id number] Care Team Providers Care Returned Case Inspector Name Role Phone Foreign Grossman DO Primary Care Provider + Rheumatology - External Fill Status:Enrolled (Active) Start date:01/28/2024 Enrollment date:01/28/2024 Enrollment reason:Identified as being on target medication Current support & services provided:Benefits Investigation, External Pharmacy Dispensing Linked medications:Risankizumab-rzaa (Active) Linked problems:Psoriatic arthritis (Active) Continued Care and Services Coordination
--- OUTSIDE RECORDS SUMMARY | 2025-01-17 12:09 | XMS_ITS | Referral Summary ---
Author Organization [employer] ([place], [place], [place], [place]) Address [address] [place] [address] Care Team Providers Care Multi Slide Machine Tender Name Role Phone Leopoldo Stoll MD Primary [...] 1 tablet by mouth daily. Active omega 1-imq-yyc-fish oil capsule Take 1 capsule (1,000 mg [...] Date Tino rded Speak language other than [place]ao [place]ome[place] at home Not on file 04/13/2023 Want [...] on file Medical Devices Implanted Type Area Webfed Offset Press Operator Device Identifier Shelf Expiration Date Model / Serial / Lot Scr Acet Canc Pinn 6.5x25mm 1217-25-500 - [id number] Implanted:Qty : 1 on 05/20/2023 by Shayne Staples MD at [facility] TOTAL JOINT CONSTRUCT Right: Hip J &J:DEPUY:DEPUY ORTHOPAEDIC 01/02/2033 1217-25-5 00 / / [id number] Liner Pincl Altrx [id number] 1221-36-052 - [id number] Implanted:Qty : 1 on 05/20/2023 by Shayne Staples MD at [facility] TOTAL JOINT CONSTRUCT Right: Hip J &J:DEPUY:DEPUY ORTHOPAEDIC 02/03/2028 1221-36-0 52 / / [id number] Cup Acet Gription Sz 52mm 1217-32-052 - [id number] Implanted:Qty : 1 on 05/20/2023 by Shayne Staples MD at [facility] TOTAL JOINT CONSTRUCT Right: Hip J &J:DEPUY:DEPUY ORTHOPAEDIC 03/04/2033 1217-32-0 52 / / [id number] Stem Actis Colld Std Sz 3 1010-11-030 - [id number] Implanted:Qty : 1 on 05/20/2023 by Shayne Staples MD at [facility] TOTAL JOINT CONSTRUCT Right: Hip J &J:DEPUY:DEPUY ORTHOPAEDIC 03/04/2033 1010-11-0 30 / / [id number] Head Fem Artc Ceramic Tpr36+5 1365-36-320 - [id number] Implanted:Qty : 1 on 05/20/2023 by Shayne Staples MD at [facility] TOTAL JOINT CONSTRUCT Right: Hip J &J:DEPUY:DEPUY ORTHOPAEDIC 02/03/2028 1365-36-3 20 / / [id number] Insurance [employer] MEDICARE PPO Advance Directives For more information, please contact: [phone] * Full Code (Latest Code Status on File) Date Activated Date Inactivated Comments 05/20/2023 5:49 PM 05/21/2023 2:48 PM Care Teams Multi Slide Machine Tender Relationship Specialty Start Date End Date Leopoldo Stoll MD [address] [place] [address] PCP - General Family Medicine 05/19/23
== END 2025-01-17 23:59 | disposition home or self-care (01) ==
LOC: RAD 12:04
PROVIDERS: PCP Internal Medicine; Visit Provider Nurse Practitioner Family
DX: M47.22 Other spondylosis with radiculopathy, cervical region (principal); M48.02 Spinal stenosis, cervical region; M50.122 Cervical disc disorder at C5-C6 level with radiculopathy; M50.123 Cervical disc disorder at C6-C7 level with radiculopathy; Z98.1 Arthrodesis status
CPT/HCPCS: 72040

== ENCOUNTER 2025-02-01 11:00 | Outpatient (RCR) | payer MEDICARE, SELFPAY | END 2025-02-01 23:59 | disposition home or self-care (01) | LOC: OT 11:00 | PROVIDERS: PCP Internal Medicine; Visit Provider Physician Assistant Surgical | DX: Z47.89 Encounter for other orthopedic aftercare (principal); Z96.619 Presence of unspecified artificial shoulder joint | CPT/HCPCS: 97010; 97014; 97032; 97110; 97140; 97530; G0283 ==

== ENCOUNTER 2025-02-14 10:20 | Outpatient (CLI) | payer MEDICARE, SELFPAY ==
--- OUTSIDE RECORDS SUMMARY | 2025-02-14 10:25 | XMS_ITS | Clinical Summary ---
Author Organization [facility] Address [address] [place] [address] Phone Care Team Providers Care Director Of Casino Marketing Name Role Phone Jae Ho MD [phone] [ ] Conditions or Problems Problem Name Problem Code Onset Date Status Entry Date Provider Comment Standard Description Annotate Benign Essential Hypertension 78664438 (SNOMED CT) Active Mary Bull Benign hypertension Intertrigo 08449460 (SNOMED CT) Active Mary Bull Intertrigo Abnormal CXR 975093428 (SNOMED CT) Active Mary Bull Standard chest X-ray abnormal Plaque psoriasis 326758759 (SNOMED CT) Active Mary Bull Plaque psoriasis Medications Medication Instructions Start Date Stop Date Generic Name [facility] Provider AMBIEN 10 MG TABS ZOLPIDEM TARTRATE [id number] Eleanor [place] RN TRAMADOL HCL 50 MG TABS TRAMADOL HCL 96042621448 Eleanor [place] RN PRAVASTATIN SODIUM 40 MG TABS PRAVASTATIN SODIUM 54014069172 Eleanor [place] RN LORATADINE 10 MG TABS LORATADINE 65310070581 Eleanor [place] RN IBUPROFEN PM 200-38 MG TABS IBUPROFEN-DIPHENH YDRAMINE CIT 79382267951 Eleanor [place] RN CALCIUM+D3 TABS CALCIUM CARB-CHOLECALCIFE ROL TABS 40636492202 Eleanor [place] RN FLUTICASONE PROPIONATE 50 MCG/ACT SUSP FLUTICASONE PROPIONATE 80408123152 Eleanor [place] RN LIDOPURE PATCH 5 % KIT LIDOCAINE-ADHESIV E SHEETS 34638354896 Eleanor [place] RN NYSTATIN 664919 UNIT/GM CREA NYSTATIN 18989888951 Eleanor [place] RN HYDROCORTISONE 2.5 % CREA HYDROCORTISONE 00395708656 Eleanor [place] RN MOMETASONE FUROATE 0.1 % OINT MOMETASONE FUROATE 65212975800 Eleanor [place] RN ENSTILAR 0.005-0.064 % FOAM CALCIPOTRIENE-BET AMETH DIPROP 54026744756 Eleanor [place] RN Medications Administered No information [...] Description Start Date HEALTHCARE SURROGATE POWER OF PRIZE FIGHTER LIVING WILL ON FILE
--- OUTSIDE RECORDS SUMMARY | 2025-02-14 10:25 | XMS_ITS | Encounter Summary ---
Author Organization Healthcare Address [address] [place] [address] Care Team Providers Care Cuff Stitcher Name Role Phone Norberto Duff MD Primary Care Provider [phone] Encounter Details Date Type Department Care Team (Late st Contact Info) Description 01/13/2022 Lab Requisition [facility] [address] [place] [address] Hank Judge MD [address] [facility] [address] [place] [address] Arteritis, unspecified (CMS/[facility]) Social History Tobacco Use Types Packs/Day [...] Description 06/12/2025 11:00 AM EDT Office Visit [facility] [address] [facility] [place] [address] Onelia Sun MD [address] [facility] [address] [place] [address] documented as of this encounter Procedures Procedure Name Priority Date/Time Associated Diagnosis Comments SURGICAL PATHOLOGY EXAM Routine 01/12/2022 Arteritis, unspecified (CMS/HCC) documented in this encounter Results * Surgical Pathology Exam (01/12/2022) Case Report Surgical Pathology Case: [id number] Authorizing Provider: Hank Judge MD Collected: 01/12/2022 Ordering Location: [facility] Lab Received: 01/13/2022 1109 Pathologist: Andi Carolina MD Specimen: Temporal Artery, Right temporal artery biopsy 01/14/2022 10:12 AM EDT [facility] Final Diagnosis A. RIGHT TEMPORAL ARTERY, BIOPSY: -BENIGN ARTERY; NO INFLAMMATION; NO FEATURES OF TEMPORAL ARTERITIS NOTED. 01/14/2022 10:12 AM EDT [facility] at 1012 EDT Clinical Information I77.6 - Arteritis, unspecified [ICD-10-CM] 01/14/2022 10:12 AM EDT [facility] Gross Description A. RIGHT TEMPORAL ARTERY BIOPSY Received in formalin labeled right temporal artery biopsy , and consists of a dean/brown, rubbery tissue fragment that measures 1.2 x 0.4 x 0.2 cm. Entirely submitted unmodified in cassette A1. Rema Grajeda 01/14/2022 10:12 AM EDT [facility] Intradepartmental Consultation with Agreement DR RENEA ARMSTRONG 01/14/2022 10:12 AM EDT [facility] Tissue Temporal artery specimen / Unknown 01/12/2022 01/13/2022 11:09 AM EDT us Hank Judge MD LAB PATHOLOGY ORDERABLES Final Result [facility] [address] [place] [address] documented in this encounter Visit Diagnoses Diagnosis Arteritis, unspecified (CMS/HCC) Arteritis, unspecified documented in this encounter Care Teams Cuff Stitcher Relationship Specialty Start Date End Date Norberto Duff MD [address] [place] [address] [address] [place] [address] PCP - General 08/16/20 documented as of this encounter
--- OUTSIDE RECORDS SUMMARY | 2025-02-14 10:25 | XMS_ITS | Encounter Summary ---
Author Organization [facility] Address [address] [place] [address] Care Team Providers Care Eligibility Consultant Name Role Phone Chauncey Foreign Shaver DO Primary Care Provider + Reason for Visit * Reason Comments Med Refill Encounter Details Date Type Department Care Team (Late Contact Info) Description 01/18/2025 Refill [facility] [address] [facility] [address] [place] [phone] Tai Sauer MD [address] [facility] [address] [place] [address] Med Refill Social History Tobacco Use Types Packs/Day Years [...] Start Date 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 Not on file Not on file Not on file documented as of this encounter Plan of Treatment Upcoming Encounters Date Type Department Care Team (Late Contact Info) Description 11/29/2025 11:30 AM EDT Office Visit [facility] [address] [place] [address] [place] [address] Tai Sauer MD [address] [place] [address] documented as of this encounter Visit Diagnoses Not on filedocumented in this encounter Care Teams Eligibility Consultant Relationship Specialty Start Date End Date Foreign Grossman DO [address] [place] [address] PCP - General Internal Medicine 08/10/24 documented as of this encounter
--- OUTSIDE RECORDS SUMMARY | 2025-02-14 10:25 | XMS_ITS | Encounter Summary ---
[facility] Organization [facility] Address [address] [place] [address] Care Team Providers Care Seat Nailer Name Role Phone ChaunceyForeign carter Sivakumar Primary Care Provider + Reason for Visit * Reason Onset Date Comments Med Refill 01/18/2025 Encounter Details Date Type Department Care Team (Late st Contact Info) Description 01/18/2025 Refill [facility] [address] [facility] [address] [place] [phone] Tai Sauer MD [address] [facility] [address] [place] [address] Med Refill Social History Tobacco Use Types [...] Start 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 Not on file Not on file documented as of this encounter Plan of Treatment Upcoming Encounters Date Type Department Care Team (Late st Contact Info) Description 11/29/2025 11:30 AM EDT Office Visit [facility] [address] [place] [address] [place] [address] Tai Sauer MD [address] [place] [address] documented as of this encounter Visit Diagnoses Not on filedocumented in this encounter Care Teams Seat Nailer Relationship Specialty Start Date End Date Foreign Grossman DO [address] [place] [address] PCP - General Internal Medicine 08/10/24 documented as of this encounter
--- OUTSIDE RECORDS SUMMARY | 2025-02-14 10:25 | XMS_ITS | Clinical Summary ---
Author Organization [employer] ([place], [place], [place], [place], [place]) Address [address] [place] [address] Care Team Providers Care Statistical Methods Professor Name Role Phone Leopoldo Stoll MD Primary [...] 1 tablet by mouth daily. Active omega 3-dip-wat-fish oil capsule Take 1 capsule (1,000 mg [...] Date Tino rded Speak language other than Dutch at home Not on file 04/13/2023 Want [...] series) 12/20/2027 Medical Devices Implanted Type Area Ecommerce Analyst Device Identifier Shelf Expiration Date Model / Serial / Lot Scr Acet Canc Pinn 6.5x25mm 1217-25-500 - [id number] Implanted:Qty : 1 on 05/20/2023 by Shayne Staples MD at [facility] T[employer]INT [employer]STRU[employer] Right: Hip J &J:DEPUY:DEPUY ORTHOPAEDIC 01/02/2033 1217-25-5 00 / / [id number] Liner Pincl Altrx [id number] 1221-36-052 - [id number] Implanted:Qty : 1 on 05/20/2023 by Shayne Staples MD at [facility] [employer]OTAL [employer] Right: Hip J &J:DEPUY:DEPUY ORTHOPAEDIC 02/03/2028 1221-36-0 52 / / [id number] Cup Acet Gription Sz 52mm 1217-32-052 - [id number] Implanted:Qty : 1 on 05/20/2023 by Shayne Staples MD at [facility] TOTAL JO[employer] CONSTRU[employer] Right: Hip J &J:DEPUY:DEPUY ORTHOPAEDIC 03/04/2033 1217-32-0 52 / / [id number] Stem Actis Colld Std Sz 3 1010-11-030 - [id number] Implanted:Qty : 1 on 05/20/2023 by Shayne Staples MD at [facility] TOTAL JO[employer] CONSTRU[employer] Right: Hip J &J:DEPUY:DEPUY ORTHOPAEDIC 03/04/2033 1010-11-0 30 / / [id number] Head Fem Artc Ceramic Tpr36+5 1365-36-320 - [id number] Implanted:Qty : 1 on 05/20/2023 by Shayne Staples MD at [facility] TOTAL JOINT CONSTRU[employer] Right: Hip J &J:DEPUY:DEPUY ORTHOPAEDIC 02/03/2028 1365-36-[id number] [facility] MEDICARE PPO Advance Directives For more information, please contact: [phone] * Full Code (Latest Code Status on File) Date Activated Date Inactivated Comments 05/20/2023 5:49 PM 05/21/2023 2:48 PM Care Teams Statistical Methods Professor Relationship Specialty Start Date End Date Leopoldo Stoll MD [address] [place] [address] PCP - General Family Medicine 05/19/23
--- OUTSIDE RECORDS SUMMARY | 2025-02-14 10:25 | XMS_ITS | Clinical Summary ---
Author Organization [facility] Address [address] [place] [address] Care Team Providers Care Jeep Driver Name Role Phone Norberto Duff MD Primary Care Provider [phone] Allergies Active Allergy Reactions Criticality Noted Date [...] [facility] [address] [place] [address] Onelia Sun MD [address] [address] Health Maintenance Due Date Last [...] 1997 Sigmoidoscopy 1997 [facility]-Colorectal Cancer Screening 1997 Lung Cancer Screening Shared Decision Making 2002 [facility]-Pneumococcal Vaccine: 50+ Years (1 of 1 - PCV) 2002 [facility]-RSV Vaccine: 60+ Years or (1 - Risk 60-74 years 1-dose series) 2012 [facility]-Bone Density Scan 07/08/2019 07/07/2017 [facility]-Lung Cancer Screening 11/11/20222021, 05/20/2021, 03/21/2021, Additional history exists BXH-VLPXO-23 Vaccine ( season) 2024 04/16/2021, 06/30/2020, 06/16/2020, [...] patient's age to complete this topic Insurance [facility] MEDICARE Care Teams Jeep Driver Relationship Specialty Start Date End Date Norberto Duff MD [address] [place] [address] [address] [place] [address] PCP - General 08/16/20
--- OUTSIDE RECORDS SUMMARY | 2025-02-14 10:25 | XMS_ITS | Encounter Summary ---
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 Carroll Michael MD [address] [place] [address] Phone: tel: fax: Referral ID Status Reason Start Date Expiration Date V isits Requested Visits Authorized [id number] Closed Specialty Services Required 03/02/2022 09/01/2023 1 1 Encounter Details Date Type Department Care Team (Late st Contact Info) Description 03/02/2022 [facility] [address] [place] [address] Carroll Michael MD [address] [place] [id number] 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 [...] Description 06/12/2025 11:00 AM EDT Office Visit [facility] [address] [place] [address] Onelia Sun MD [address] [place] [address] Scheduled Referrals Name Type Priority Associated Diagnoses Order Schedule Ambulatory referral to Neurology Outpatient Referral Routine 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
--- OUTSIDE RECORDS SUMMARY | 2025-02-14 10:25 | XMS_ITS | Encounter Summary ---
Author Organization [facility] Address [address] [place] [address] Care Team Providers Care Director Database Name Role Phone Norberto Duff MD Primary Care Provider [phone] Encounter Details Date Type Department Care Team (Late Contact Info) Description 03/23/2022 Lab Requisition [facility] [address] [place] [address] Social History Tobacco Use Types Packs/Day Years [...] Description 06/12/2025 11:00 AM EDT Office Visit [facility] [address] [place] [address] Onelia Sun MD [address] [place] [address] documented as of this encounter Visit Diagnoses Not on filedocumented in this encounter Care Teams Director Database Relationship Specialty Start Date End Date Norberto Duff MD [address] [facility] [address] [place] [address] PCP - General 08/16/20 documented as of this encounter
--- OUTSIDE RECORDS SUMMARY | 2025-02-14 10:25 | XMS_ITS | Encounter Summary ---
Author Organization [facility] Address [address] [place] [address] Care Team Providers Care Helper/Driver Name Role Phone Foreign Grossman Primary Care Provider + Encounter Details Date Type Department Care Team (Late st Contact Info) Description 12/09/2011 Conversion Encounter [facility] HISTORICAL CONV [address] [place] [address] Interface, See Report Social History [...] Bhagat M.D. Freddie Palacios, MARY KAY [address], [address] [place] [address] [employer] OFFICE NOTE SHANIKA PINA : 1950 DATE [...] months. Lisa Murphy M.D.* ELIJAH/marie Doc. ID [id number] Rev. #0 cc: Casimiro Melo M.D.* Page 2 of 2 Page 1 of 2 Authenticated by LISA MURPHY MD On 01/01/2012 11:34:36 AM * Interface, See Report - 12/09/2011 9:00 AM EDT Maricarmen Odonnell M.D. ' Arnaldo Lakhani M.D. ' Baldev Painter M.D. ' MARY KAY Bhagat M.D. ' Robert Murphy M.D. ' Lakisha Guillen M.D. ' Kaitlin Irby APRN [address] [place] [address] [place] [address] [employer] OFFICE NOTE SHANIKA PINA : 1950 DATE [...] forward. Lisa Murphy M.D.* ELIJAH/rxcmt Doc. ID [id number] Rev. #0 cc: Casimiro Melo M.D.* Norberto [...] Lakisha Guillen M.D. ' Kaitlin Irby APRN [address] [place] [address], [place] [address] [place] [address] [employer] OFFICE NOTE SHANIKA PINA : 1950 DATE [...] stable. ASSESSMENT AND PLAN: 1. Stage I, ER/MS positive lobular carcinoma of the left breast. [...] She needs some kind interim letter to [facility] regarding her reconstruction which I am more than glad to do and we will see if that helps assist with completing her breast reconstruction. Return to the clinic in six months. Lisa Murhpy M.D.* ELIJAH/pratibha Doc. ID [id number] Rev. #0 cc: Casimiro Melo M.D.* Gela [...] M.D. ' Firas Freddie Guillen APRN [address], [address] [place] [phone] [employer] OFFICE NOTE SHANIKA PINA : 1950 DATE [...] HISTORY: . She is retired from a [employer] job. has some COPD but otherwise does [...] her. Maricarmen Odonnell M.D.* ANNEMARIE/rxdrs Doc. ID [id number] Rev. #0 Casimiro Melo M.D.* Gela Peace M.D.* Norberto Duff M.D.* Lorri Covarrubias M.D.* SHANIKA PINA : 1950 DATE OF VISIT: 01/31/2013 Page 2 of 2 Page 1 of 2 DOCUMENT CODE :COS: PHYSICIAN CODE :[id number]: Authenticated by MARICARMEN ODONNELL M.D. On 02/03/2013 01:23:39 PM * Interface, See Report - 12/09/2011 9:00 AM EDT Maricarmen Odonnell M.D. ' Arnaldo Lakhani M.D. ' Baldev Painter M.D. ' Freddie Taylor M.D. ' Paula Laws M.D. ' Kaitlin Irby APRN ' Amanda Polk APRN [address], [address] [place] [address] [employer] OFFICE NOTE SHANIKA PINA : 1950 DATE OF VISIT: 02/20/2013 Ms. Pina feels a little better in terms of the hot flashes. She is taking 40 mg of Megace once a day. I will see her late this month, I believe. Maricarmen Odonnell M.D.* JJG/rxdrs Doc. ID [id number] Rev. #0 cc: SHANIKA PINA : 1950 DATE OF VISIT: 02/20/2013 Page 1 of 1 Page 1 of 1 DO NOT TEXT EDIT THIS LINE :[facility]:[id number]: Authenticated by MARICARMEN ODONNELL M.D. On 02/22/2013 09:36:57 AM documented in this encounter Plan of Treatment Upcoming Encounters Date Type Department Care Team (Late st Contact Info) Description 11/29/2025 11:30 AM EDT Office Visit [facility] [address] [facility] [place] [address] Tai Sauer MD [facility] [place] [address] documented as of this encounter Visit Diagnoses Not on filedocumented in this encounter Additional Health Concerns Infection Onset Date Last Indicated Resolved Time COVID Screen (preop/placement) 10/09/2019 10/09/2019 10/10/2019 2:57 PM EDT COVID Screen (preop/placement) 05/20/2021 05/20/2021 05/20/2021 4:27 PM EST documented as of this encounter Care Teams Helper/Driver Relationship Specialty Start Date End Date Foreign Grossman DO [address] [place] [address] [place] [address] PCP - General Internal Medicine 08/10/24 documented as of this encounter
--- OUTSIDE RECORDS SUMMARY | 2025-02-14 10:26 | XMS_ITS ---
Author Organization [facility] Address [address] [place] [id number] Care Team Providers Care Crime Investigator Special Agent Name Role Phone Foreign Grossman DO Primary Care Provider + Rheumatology - External Fill Status:Enrolled (Active) Start date:01/28/2024 Enrollment date:01/28/2024 Enrollment reason:Identified as being on target medication Current support & services provided:Benefits Investigation, External Pharmacy Dispensing Linked medications:Risankizumab-rzaa (Active) Linked problems:Psoriatic arthritis (Active) Continued Care and Services Coordination
--- OUTSIDE RECORDS SUMMARY | 2025-02-14 10:26 | XMS_ITS | Clinical Summary ---
Author Organization [facility] Address [address] [place] [address] Care Team Providers Care Heart Nurse Name Role Phone Foreign Grossman DO Primary Care Provider + Allergies Active Allergy Reactions Criticality Noted Date Comments Sulfamethoxazole-Trimethoprim Itching Low 2017 Itraconazole Hives Medium 01/20/2016 Medications Loratadine 10 MG capsule Take by mouth Daily. Active esomeprazole (nexIUM) 40 MG capsule Take 1 capsule by mouth Daily. 08/31/19 21 Active aspirin 81 MG EC tablet Take 1 tablet by mouth Daily. Active multivitamin (MULTI-VITAMIN PO) Take 1 tablet by mouth Daily. Womens daily vitamin Active fluticasone (FLONASE) 50 MCG/ACT nasal spray Daily. Active meclizine (ANTIVERT) 25 MG tablet Take 1 tablet by mouth. 01/28/20 23 Active furosemide (LASIX) 20 MG tablet Take 1 tablet by mouth Daily. Patient to use as needed for weight gain 2 pounds in 24 hours 90 tablet 3 07/01/19 24 Active calcium carbonate (OS-MALDONADO) 1250 (500 Ca) MG tablet Take 1 tablet by mouth Daily. Active Lidocaine 4 % Remove & Discard patch within 12 hours or as directed by MD Active ciclopirox (LOPROX) 0.77 % suspension Apply [...] DAILY PO) Take by mouth. Activ e Risankizumab-r zaa (Skyrizi Pen) 150 MG/ML solution auto-injector Inject 1 mL under the skin into the appropriate area as directed Every 12 (Twelve) Weeks. 1 mL 3 12/07/19 24 Active DULoxetine (CYMBALTA) 30 MG capsuleIndicat ions:Fibromyal jen Take 1 capsule by mouth Daily. 90 capsule 02/22/20 24 Active ammonium lactate (LAC-HYDRIN) 12 % lotion Apply 1 application every day by topical route. 05/09/19 25 Active pregabalin (LYRICA) 50 MG capsule Take 1 capsule by mouth Every 12 (Twelve) Hours. 07/27/19 25 Active traZODone (DESYREL) 50 MG tablet Take 1 tablet by mouth At Night As Needed for Sleep. 07/06/19 25 Active rosuvastatin (CRESTOR) 20 MG tablet Take 1 tablet by mouth Daily. Please obtain annual lipid panel 90 tablet 01/19/20 25 Active rosuvastatin (CRESTOR) 20 MG tablet Take 1 tablet by mouth Daily. Please obtain annual lipid panel blood work for future refills 90 tablet 09/02/19 25 025 Discontinued Active Problems Problem Noted Date Diagnosed Date History of left breast cancer 07/19/2024 Osteoarthritis 08/18/2023 Assessment & Plan (08/19/2023 11:42 AM EDT): * Medications/treatments/interventions tried include: Tylenol, she has done physical therapy, Naproxen, gabapentin, Tramadol, Citalopram, Ambien, Otezla, Effexor, MTX/folic acid, She has seen dermatology, Duexis, Diclofenac, She saw Dr. Tone Sarmiento (Rotary Soil Stabilizer) in 2016, she lists that she is allergic/intolerant of oxycodone, Tremfya, Cosentyx, Lidocaine patches, Ambien, indomethacin, Lexapro, she has seen a carburetor mechanic, She saw Dr Sousa (neurosurgeon), she saw [...] Duexis, Diclofenac, She saw Dr. Tone Sarmiento (Rotary Soil Stabilizer) in 2016, she lists that she is allergic/intolerant of oxycodone, Tremfya, Cosentyx, Lidocaine patches, Ambien, indomethacin, Lexapro, she has seen a carburetor mechanic, She saw Dr Sousa (neurosurgeon), she saw an infections disease specialist (Dr. Ho), Cimzia, Etodolac, ibuprofen, Celebrex. Psoriatic arthritis with psoriasis Assembly Operator is Dr. Carroll Michael Has previously tried [...] Aortic insufficiency Overview (02/12/2016): a. Echocardiogram, 02/19/2011: Mezu-yf-ncebcbzh aortic insufficiency, mild MR and TR; mild [...] b. Bilateral mastectomy, Dr. Cortes, general surgeon, [facility]. c. Breast reconstruction, Dr. Garcia, plastic surgeon, [facility]. d. Oncologist, Dr. Yong Odonnell, [facility]. 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 Not on file Not on [...] Description 11/29/2025 11:30 AM EDT Office Visit [facility] [address] [place] [address] Tai Sauer MD [address] [facility] [address] [place] [address] Health Maintenance Due Date Last [...] , 12/31/2020, Additional history exists COVID-19 Vaccine ( - 2024-2 6 season) 2024 04/16/2021, 06/30/2020, 06/16/2020, Additional history exists DXA SCAN 07/03/2026 07/03/2024, 04/0 07/2017, 07/07/2017, Additional history exists Procedures Procedure Name [...] 10:3 5 AM EST 06/11/2022 Narrative [facility] (AMBULATORY) - 06/11/2022 7:08 PM EST Performed at: [address] [place] [address] Migueledilberto [place], [place] [id number] Cook Frozen Dessert: Derrick Faustin MD, Phone: [phone] Patient Fasting: N us Tai Sauer MD LAB BLOOD ORDERABLES Final Res ult [facility] (AMBULATORY) [address] [place] [address], [facility] [address] [place] [address], from Last 3 Months or Most Recently Relevant to Health Maintenance Insurance [facility] Medicare [employer] PPO Care Teams Heart Nurse Relationship Specialty Start Date End Date Foreign Grossman DO [address] [place] [address] [place], [place] [id number] PCP - General Internal Medicine 08/10/24
--- OUTSIDE RECORDS SUMMARY | 2025-02-14 10:26 | XMS_ITS ---
Author Organization [facility] Address [address] [place] [address] Care Team Providers Care Viscose Cellar Worker Name Role Phone Chauncey Foreign Shaver DO Primary Care Provider + Active Problems Problem Noted Date Diagnosed Date History of left breast cancer 07/19/2024 Osteoarthritis 08/18/2023 Assessment & Plan (08/19/2023 11:42 AM EDT): * Medications/treatments/interventions tried include: Tylenol, she has done physical therapy, Naproxen, gabapentin, Tramadol, Citalopram, Ambien, Otezla, Effexor, MTX/folic acid, She has seen dermatology, Duexis, Diclofenac, She saw Dr. Tone Sarmiento (Broiler Manager) in 2016, she lists that she is allergic/intolerant of oxycodone, Tremfya, Cosentyx, Lidocaine patches, Ambien, indomethacin, Lexapro, she has seen a carousel attendant, She saw Dr Sousa (neurosurgeon), she saw [...] Duexis, Diclofenac, She saw Dr. Tone Sarmiento (Broiler Manager) in 2016, she lists that she is allergic/intolerant of oxycodone, Tremfya, Cosentyx, Lidocaine patches, Ambien, indomethacin, Lexapro, she has seen a carousel attendant, She saw Dr Sousa (neurosurgeon), she saw an infections disease specialist (Dr. Ho), Cimzia, Etodolac, ibuprofen, Celebrex. Psoriatic arthritis with psoriasis Order Builder is Dr. Carroll Michael Has previously tried [...] Aortic insufficiency Overview (02/12/2016): a. Echocardiogram, 02/19/2011: Qqnm-ap-yolsgiqu aortic insufficiency, mild MR and TR; mild [...] b. Bilateral mastectomy, Dr. Cortes, general surgeon, [facility]. c. Breast reconstruction, Dr. Garcia, plastic surgeon, [facility]. d. Oncologist, Dr. Yong Odonnell, [facility]. Breast cancer 02/09/2018
--- OUTSIDE RECORDS SUMMARY | 2025-02-14 10:26 | XMS_ITS | Referral Summary ---
Author Organization [employer] ([place], [place], [place], [place], [place]) Address [address] [place] [address] Care Team Providers Care Surtass Analyst Name Role Phone Leopoldo Stoll MD Primary [...] 1 tablet by mouth daily. Active omega 6-hkk-znu-fish oil capsule Take 1 capsule (1,000 mg [...] Date Tino rded Speak language other than British at home Not on file 04/13/2023 Want [...] on file Medical Devices Implanted Type Area Senior Reservoir Engineer Device Identifier Shelf Expiration Date Model / Serial / Lot Scr Acet Canc Pinn 6.5x25mm 1217-25-500 - [id number] Implanted:Qty : 1 on 05/20/2023 by Shayne Staples MD at [facility] TOTAL JOINT CONSTRU[employer] Right: Hip J &J:DEPUY:DE[employer]Y ORTHOPAEDIC 01/02/2033 1217-25-5 00 / / [id number] Liner Pincl Altrx [id number] 1221-36-052 - [id number] Implanted:Qty : 1 on 05/20/2023 by Shayne Staples MD at [facility] TOTAL JO[employer] CONSTRU[employer] Right: Hip J &J:DEPUY:DEPUY ORTHOPAEDIC 02/03/2028 1221-36-0 52 / / [id number] Cup Acet Gription Sz 52mm 1217-32-052 - [id number] Implanted:Qty : 1 on 05/20/2023 by Shayne Staplse MD at [facility] TOTAL JOINT CONSTRUCT Right: Hip J &J:DEPUY:DEPUY ORTHOPAEDIC 03/04/2033 1217-32-0 52 / / [id number] Stem Actis Colld Std Sz 3 1010-11-030 - [id number] Implanted:Qty : 1 on 05/20/2023 by Shayne Staples MD at [facility] TOTAL JOINT CONSTRUCT Right: Hip J &J:DEPUY:DEPUY ORTHOPAEDIC 03/04/2033 1010-11-0 30 / / [id number] Head Fem Artc Ceramic Tpr36+5 1365-36-320 - [id number] Implanted:Qty : 1 on 05/20/2023 by Shayne Staples MD at [facility] TOTAL JOINT CONSTRU[employer] Right: Hip J &J:DEPUY:DEPUY ORTHOPAEDIC 02/03/2028 1365-36-3 20 / / [id number] Insurance [employer] MEDICARE PPO Advance Directives For more information, please contact: [phone] * Full Code (Latest Code Status on File) Date Activated Date Inactivated Comments 05/20/2023 5:49 PM 05/21/2023 2:48 PM Care Teams Surtass Analyst Relationship Specialty Start Date End Date Leopoldo Stoll MD [address] [place] [address] PCP - General Family Medicine 05/19/23
--- NOTE | 2025-02-14 10:30 | CT_ITS ---
FINAL REPORT CLINICAL HISTORY: lung cancer screening former smoker quit 13 years ago 1ppd x40 years COMPARISON: 03/21/2021 FINDINGS: CT CHEST LOW DOSE SCREENING HISTORY: Screening exam for lung cancer. DOSE: CTDI vol: 2.90 mGy, DLP: 96.38 mGy*cm TECHNIQUE: Axial CT without IV contrast administration using low dose protocol. This study was performed with techniques to keep radiation doses as low as reasonably achievable, (ALARA). Individualized dose reduction techniques using automated exposure control or adjustment of mA and/or kV according to the patient's size were employed. No acute lung disease is present. No pulmonary lesions are seen suspicious for neoplasm. There is coarse linear scarring in the anterior medial left upper lobe that is stable associated with calcified granuloma. No pleural or pericardial effusion is seen. No adenopathy or mass lesion is present. IMPRESSION: No evidence of lung cancer LUNG RADS CATEGORY 1 RECOMMENDATION: 12 month LDCT follow up Reviewed, Interpreted and Dictated by Charley Roque MD Transcribed by Quynh Baig Authenticated and [facility]
== END 2025-02-14 23:59 | disposition home or self-care (01) ==
LOC: RAD 10:21
PROVIDERS: PCP Internal Medicine; Visit Provider Nurse Practitioner Family
DX: Z12.2 Encounter for screening for malignant neoplasm of respiratory organs (principal); Z87.891 Personal history of nicotine dependence; J98.4 Other disorders of lung
CPT/HCPCS: 71271

== ENCOUNTER 2025-02-22 12:20 | Outpatient (CLI) | payer MEDICARE, SELFPAY | END 2025-02-22 23:59 | disposition home or self-care (01) | LOC: RAD 12:21 | PROVIDERS: PCP Internal Medicine; Visit Provider Orthopaedic Surgery | DX: M25.552 Pain in left hip (principal) ==

== ENCOUNTER 2025-02-26 14:22 | Outpatient (CLI) | payer MEDICARE, SELFPAY ==
--- NOTE | 2025-02-26 14:30 | CT_ITS ---
FINAL REPORT TECHNIQUE: Thin section axial images were obtained through the cervical spine without contrast. Multiplanar reconstruction images were obtained from the axial data. Exam was performed using dose reduction techniques. CLINICAL HISTORY: neck pain FINDINGS: There are postoperative changes from anterior fusion of C3-C5. The hardware is normal. There is multilevel degenerative disc disease. There is severe right neuroforaminal narrowing at C4-5. There is mild to moderate bilateral neuroforaminal narrowing at C6-7. IMPRESSION: Multilevel degenerative and postoperative changes as above. Reviewed, Interpreted and Dictated by Francine Ward MD Transcribed by Quynh Baig Authenticated and [facility]
--- OUTSIDE RECORDS SUMMARY | 2025-02-26 14:31 | XMS_ITS | Encounter Summary ---
Author Organization [facility] Address [address] [place] [address] Care Team Providers Care M1A1 Tank Crewman Name Role Phone ChaunceyForeign carter Sivakumar Primary Care Provider + Reason for Visit * Reason Onset Date Comments Med Refill 01/18/2025 Encounter Details Date Type Department Care Team (Late st Contact Info) Description 01/18/2025 Refill [facility] [address] [facility] [address] [place] [id number] Tai Sauer MD [address] [facility] [address] [place] [address] Med Refill Social History Tobacco Use Types [...] Start Date 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 on file Not on file Not on file documented as of this encounter Plan of Treatment Upcoming Encounters Date Type Department Care Team (Late st Contact Info) Description 11/29/2025 11:30 AM EDT Office Visit [facility] [address] [place] [address] [address] Tai Sauer MD [address] [place] [address] documented as of this encounter Visit Diagnoses Not on filedocumented in this encounter Care Teams M1A1 Tank Crewman Relationship Specialty Start Date End Date Foreign Grossman DO [address] [place] [address] [place] [address] PCP - General Internal Medicine 08/10/24 documented as of this encounter
--- OUTSIDE RECORDS SUMMARY | 2025-02-26 14:31 | XMS_ITS | Encounter Summary ---
Author Organization Healthcare Address [address] [place] [address] Care Team Providers Care Charge Hand Name Role Phone Norberto Duff MD Primary Care Provider [phone] Encounter Details Date Type Department Care Team (Late Contact Info) Description 03/23/2022 Lab Requisition [facility] [address] [place] [address] Social History Tobacco Use Types Packs/Day Years [...] Description 06/12/2025 11:00 AM EDT Office Visit [facility] [address] [place] [phone] Onelia Sun MD [address] [place] [phone] documented as of this encounter Visit Diagnoses Not on filedocumented in this encounter Care Teams Charge Hand Relationship Specialty Start Date End Date Norberto Duff MD [address] [facility] [address] [place] [address] PCP - General 08/16/20 documented as of this encounter
--- OUTSIDE RECORDS SUMMARY | 2025-02-26 14:31 | XMS_ITS | Clinical Summary ---
Author Organization [facility] Address [address] [place] [address] Care Team Providers Care Coil Machine Operator Name Role Phone Foreign Grossman DO [...] Please obtain annual lipid panel 90 tablet 5 Active Active Problems Problem Noted Date Diagnosed Date History of left breast cancer 07/19/2024 Osteoarthritis 08/18/2023 Assessment & Plan (08/19/2023 11:42 AM EDT): * Medications/treatments/interventions tried include: Tylenol, she has done physical therapy, Naproxen, gabapentin, Tramadol, Citalopram, Ambien, Otezla, Effexor, MTX/folic acid, She has seen dermatology, Duexis, Diclofenac, She saw Dr. Tone Sarmiento (Fund Director) in 2016, she lists that she is allergic/intolerant of oxycodone, Tremfya, Cosentyx, Lidocaine patches, Ambien, indomethacin, Lexapro, she has seen a firer boiler, She saw Dr Sousa (neurosurgeon), she saw [...] Duexis, Diclofenac, She saw Dr. Tone Sarmiento (Fund Director) in 2015, she lists that she is allergic/intolerant of oxycodone, Tremfya, Cosentyx, Lidocaine patches, Ambien, indomethacin, Lexapro, she has seen a firer boiler, She saw Dr Sousa (neurosurgeon), she saw an infections disease specialist (Dr. Ho), Cimzia, Etodolac, ibuprofen, Celebrex. Psoriatic arthritis with psoriasis Bisque Grader is Dr. Carroll Michael Has previously tried [...] Aortic insufficiency Overview (02/12/2016): a. Echocardiogram, 02/19/2011: Apsb-zl-twkpjfcy aortic insufficiency, mild MR and TR; mild [...] b. Bilateral mastectomy, Dr. Cortes, general surgeon, [facility]. c. Breast reconstruction, Dr. Garcia, plastic surgeon, [facility]. monica Oncologist, Dr. Yong Odonnell, [facility]. 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 on file Not [...] Description 11/29/2025 11:30 AM EDT Office Visit [facility] [address] [address] Tai Sauer MD [address] [facility] [address] [place] [address] Health Maintenance Due Date Last [...] , 12/31/2020, Additional history exists COVID-19 Vaccine (6 - 2024-2 6 season) 2024 04/16/2021, 06/30/2020, 06/16/2020, Additional history exists DXA SCAN 07/03/2026 07/03/2024, 07/2017, 07/07/2017, Additional history exists Procedures Procedure [...] - 06/11/2022 7:08 PM EST Performed at: [address] [place] [id number] Body Liner: Derrick Faustin MD, Phone: [phone] Patient Fasting: N us Tai Sauer MD LAB BLOOD ORDERABLES Final Res ult [facility] ([facility]BULAT[facility]) [address] [place] [address], [place] [phone] [facility] [address] [place] [address], [place] [phone] from Last 3 Months or Most Recently Relevant to Health [place] [address] [employer] PPO Care Teams Coil Machine Operator Relationship Specialty Start Date End Date Foreign Grossman DO [facility]0 [facility] [address] [place], [place] [id number] PCP - General Internal Medicine 08/10/24
--- OUTSIDE RECORDS SUMMARY | 2025-02-26 14:31 | XMS_ITS | Encounter Summary ---
Author Organization Healthcare Address [address] [place] [address] Care Team Providers Care Human Service Specialist Name Role Phone Norberto Duff MD Primary Care Provider [phone] Encounter Details Date Type Department Care Team (Late st Contact Info) Description 01/13/2022 Lab Requisition [facility] [address] [place] [address] Hank Judge MD [address] [facility] [address] [place] [address] Arteritis, unspecified (CMS/FORMERLY [facility] - [...] Description 06/12/2025 11:00 AM EDT Office Visit [facility] [address] [place] [phone] Onelai Sun MD [address] [facility] [address] [place] [address] documented as of this encounter Procedures Procedure Name Priority Date/Time Associated Diagnosis Comments SURGICAL PATHOLOGY EXAM Routine 01/12/2022 Arteritis, unspecified (CMS/HCC) documented in this encounter Results * Surgical Pathology Exam (01/12/2022) Case Report Surgical Pathology Case: [id number] Authorizing Provider: Hank Judge MD Collected: 01/12/2022 Ordering Location: [facility] Lab Received: 01/13/2022 1109 Pathologist: Andi Carolina MD Specimen: Temporal Artery, Right temporal artery biopsy 01/14/2022 10:12 AM EDT [facility] Final Diagnosis A. RIGHT TEMPORAL ARTERY, BIOPSY: -BENIGN ARTERY; NO INFLAMMATION; NO FEATURES OF TEMPORAL ARTERITIS NOTED. 01/14/2022 10:12 AM EDT [facility] at 1012 EDT Clinical Information I77.6 - Arteritis, unspecified [ICD-10-CM] 01/14/2022 10:12 AM EDT [facility] Gross Description A. RIGHT TEMPORAL ARTERY BIOPSY Received in formalin labeled right temporal artery biopsy , and consists of a dean/brown, rubbery tissue fragment that measures 1.2 x 0.4 x 0.2 cm. Entirely submitted unmodified in cassette A1. Rema Grajeda 01/14/2022 10:12 AM EDT [facility] Intradepartmental Consultation with Agreement DR RENEA ARMSTRONG 01/14/2022 10:12 AM EDT [facility] Tissue Temporal artery specimen / Unknown 01/12/2022 01/13/2022 11:09 AM EDT us Hank Judge MD LAB PATHOLOGY ORDERABLES Final Result [facility] [address] [place] [address] documented in this encounter Visit Diagnoses Diagnosis Arteritis, unspecified (CMS/HCC) Arteritis, unspecified documented in this encounter Care Teams Human Service Specialist Relationship Specialty Start Date End Date Norberto Duff MD [address] [place] [address] [address] [place] [address] PCP - General 08/16/20 documented as of this encounter
--- OUTSIDE RECORDS SUMMARY | 2025-02-26 14:31 | XMS_ITS | Encounter Summary ---
[facility] Address [address] [place] [address] Care Team Providers Care Supervisor Instrument Repair Name Role Phone Foreign Grossman Primary Care Provider + Encounter Details Date Type Department Care Team (Late st Contact Info) Description 12/09/2011 Conversion Encounter [facility] HISTORICAL CONV [address] [place] [address] Interface, See Report Social History [...] Bhagat M.D. Freddie Palacios, MARY KAY [address] [facility], [address] [place] [address] [employer] OFFICE NOTE SHANIKA PINA : 1950 DATE [...] months. Lisa Murphy M.D.* ELIJAH/marie Doc. ID [id number] Rev. #0 cc: Casimiro Melo M.D.* Page 2 of 2 Page 1 of 2 Authenticated by LISA MURPHY MD On 01/01/2012 11:34:36 AM * Interface, See Report - 12/09/2011 9:00 AM EDT Maricarmen Odonnell M.D. ' Arnaldo Lakhani M.D. ' Baldev Painter M.D. ' MARY KAY Bhagat M.D. ' Robert Murphy M.D. ' Lakisha Guillen M.D. ' Kaitlin Irby APRN [address] [place] [address] [place] [address] [employer] OFFICE NOTE SHANIKA PINA : 1950 DATE [...] forward. Lisa Murphy M.D.* ELIJAH/rxcmt Doc. ID [id number] Rev. #0 cc: Casimiro Melo M.D.* Norberto [...] Lakisha Guillen M.D. ' Kaitlin Irby APRN [address] [place] [address], [place] [address] [place] [address] [employer] OFFICE NOTE SHANIKA PINA : 1950 DATE [...] stable. ASSESSMENT AND PLAN: 1. Stage I, ER/DE positive lobular carcinoma of the left breast. [...] She needs some kind interim letter to [facility] regarding her reconstruction which I am more than glad to do and we will see if that helps assist with completing her breast reconstruction. Return to the clinic in six months. Lisa Murphy M.D.* ELIJAH/pratibha Doc. ID [id number] Rev. #0 cc: Casimiro Melo M.D.* Gela [...] M.D. ' Firas Freddie Guillen APRN [address] [facility], [address] [place] [id number] [employer] OFFICE NOTE SHANIKA PINA : 1950 DATE [...] HISTORY: . She is retired from a [employer] job. has some COPD but otherwise does [...] her. Maricarmen Odonnell M.D.* ANNEMARIE/rxdrs Doc. ID [id number] Rev. #0 Casimiro Melo M.D.* Gela Peace M.D.* Norberto Duff M.D.* Lorri Covarrubias M.D.* SHANIKA PINA : 1950 DATE OF VISIT: 01/31/2013 Page 2 of 2 Page 1 of 2 DOCUMENT CODE :COS: PHYSICIAN CODE :[id number]: Authenticated by MARICARMEN ODONNELL M.D. On 02/03/2013 01:23:39 PM * Interface, See Report - 12/09/2011 9:00 AM EDT Maricarmen Odonnell M.D. ' Arnaldo Lakhani M.D. ' Baldev Painter M.D. ' Freddie Taylor M.D. ' Paula Laws M.D. ' Kaitlin Irby APRN ' Amanda Polk APRN [address] [facility], [address] [place] [address] [employer] OFFICE NOTE SHANIKA PINA : 1950 DATE OF VISIT: 02/20/2013 Ms. Pina feels a little better in terms of the hot flashes. She is taking 40 mg of Megace once a day. I will see her late this month, I believe. Maricarmen Odonnell M.D.* JJG/rxdrs Doc. ID [id number] Rev. #0 cc: SHANIKA PINA : 1950 DATE OF VISIT: 02/20/2013 Page 1 of 1 Page 1 of 1 DO NOT TEXT EDIT THIS LINE :[facility]:[id number]: Authenticated by MARICARMEN ODONNELL M.D. On 02/22/2013 09:36:57 AM documented in this encounter Plan of Treatment Upcoming Encounters Date Type Department Care Team (Late st Contact Info) Description 11/29/2025 11:30 AM EDT Office Visit [facility] CARDIOLOGY [address] [place] [address] [place] [address] Tai Sauer MD [facility] [place] [address] documented as of this encounter Visit Diagnoses Not on filedocumented in this encounter Additional Health Concerns Infection Onset Date Last Indicated Resolved Time COVID Screen (preop/placement) 10/09/2019 10/09/2019 10/10/2019 2:57 PM EDT COVID Screen (preop/placement) 05/20/2021 05/20/2021 05/20/2021 4:27 PM EST documented as of this encounter Care Teams Supervisor Instrument Repair Relationship Specialty Start Date End Date Foreign Grossman DO [address] [place] [address] [place] [address] PCP - General Internal Medicine 08/10/24 documented as of this encounter
--- OUTSIDE RECORDS SUMMARY | 2025-02-26 14:31 | XMS_ITS ---
Author Organization [facility] Address [address] [place] [id number] Care Team Providers Care Management Professor Name Role Phone Foreign Grossman DO Primary Care Provider + Rheumatology - External Fill Status:Enrolled (Active) Start date:01/28/2024 Enrollment date:01/28/2024 Enrollment reason:Identified as being on target medication Current support & services provided:Benefits Investigation, External Pharmacy Dispensing Linked medications:Risankizumab-rzaa (Active) Linked problems:Psoriatic arthritis (Active) Continued Care and Services Coordination
--- OUTSIDE RECORDS SUMMARY | 2025-02-26 14:31 | XMS_ITS | Clinical Summary ---
Author Organization [facility] Address [address] [place] [address] Phone Care Team Providers Care Director Of Officiating Name Role Phone Jae Ho MD [ ] Conditions or Problems Problem Name Problem Code Onset Date Status Entry Date Provider Comment Standard Description Annotate Benign Essential Hypertension 46279713 (SNOMED CT) Active Mary Bull Benign hypertension Intertrigo 04210429 (SNOMED CT) Active Mary Bull Intertrigo Abnormal CXR 261817334 (SNOMED CT) Active Mary Bull Standard chest X-ray abnormal Plaque psoriasis 516193012 (SNOMED CT) Active Mary Bull Plaque psoriasis Medications Medication Instructions Start Date Stop Date Generic Name [facility] Provider AMBIEN 10 MG TABS ZOLPIDEM TARTRATE 66371800017 Eleanor Mansfield RN TRAMADOL HCL 50 MG TABS TRAMADOL HCL 92079794636 Eleanor Mansfield RN PRAVASTATIN SODIUM 40 MG TABS PRAVASTATIN SODIUM 26132789232 Eleanor Mansfield RN LORATADINE 10 MG TABS LORATADINE 72424311311 Eleanor Mansfield RN IBUPROFEN PM 200-38 MG TABS IBUPROFEN-DIPHENH YDRAMINE CIT 68462347502 Eleanor Mansfield RN CALCIUM+D3 TABS CALCIUM CARB-CHOLECALCIFE ROL TABS 27458217411 Eleanor Mansfield RN FLUTICASONE PROPIONATE 50 MCG/ACT SUSP FLUTICASONE PROPIONATE 67923454049 Eleanor Mansfield RN LIDOPURE PATCH 5 % KIT LIDOCAINE-ADHESIV E SHEETS 94719740310 Eleanor Mansfield RN NYSTATIN 236096 UNIT/GM CREA NYSTATIN 16412211030 Eleanor Mansfield RN HYDROCORTISONE 2.5 % CREA HYDROCORTISONE 92298890488 Eleanor Mansfield RN MOMETASONE FUROATE 0.1 % OINT MOMETASONE FUROATE 97483680028 Eleanor Mansfield RN ENSTILAR 0.005-0.064 % FOAM CALCIPOTRIENE-BET AMETH DIPROP 51715908031 Eleanor Mansfield RN Medications Administered No information [...] Description Start Date HEALTHCARE SURROGATE POWER OF DIRECTOR BIOSTATISTICS LIVING WILL ON FILE
--- OUTSIDE RECORDS SUMMARY | 2025-02-26 14:31 | XMS_ITS ---
Author Organization [facility] Address [address] [place] [address] Care Team Providers Care Asset Protection Representative Name Role Phone Chauncey Foreign Shaver DO Primary Care Provider + Active Problems Problem Noted Date Diagnosed Date History of left breast cancer 07/19/2024 Osteoarthritis 08/18/2023 Assessment & Plan (08/19/2023 11:42 AM EDT): * Medications/treatments/interventions tried include: Tylenol, she has done physical therapy, Naproxen, gabapentin, Tramadol, Citalopram, Ambien, Otezla, Effexor, MTX/folic acid, She has seen dermatology, Duexis, Diclofenac, She saw Dr. Tone Sarmiento (Subway Guard) in 2016, she lists that she is allergic/intolerant of oxycodone, Tremfya, Cosentyx, Lidocaine patches, Ambien, indomethacin, Lexapro, she has seen a pilot plant research technician, She saw Dr Sousa (neurosurgeon), she saw [...] Duexis, Diclofenac, She saw Dr. Tone Sarmiento (Subway Guard) in 2016, she lists that she is allergic/intolerant of oxycodone, Tremfya, Cosentyx, Lidocaine patches, Ambien, indomethacin, Lexapro, she has seen a pilot plant research technician, She saw Dr Sousa (neurosurgeon), she saw an infections disease specialist (Dr. Ho), Cimzia, Etodolac, ibuprofen, Celebrex. Psoriatic arthritis with psoriasis Instructional Systems Designer is Dr. Carroll Michael Has previously tried [...] Aortic insufficiency Overview (02/12/2016): a. Echocardiogram, 02/19/2011: Iati-kv-odoczmty aortic insufficiency, mild MR and TR; mild [...] b. Bilateral mastectomy, Dr. Cortes, general surgeon, [facility]. c. Breast reconstruction, Dr. Garcia, plastic surgeon, [facility]. d. Oncologist, Dr. Yong Odonnell, [facility]. Breast cancer 02/09/2018
--- OUTSIDE RECORDS SUMMARY | 2025-02-26 14:31 | XMS_ITS | Encounter Summary ---
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 Carroll Michael MD [address] [place] [address] Phone: tel: fax: Referral ID Status Reason Start Date Expiration Date V isits Requested Visits Authorized [id number] Closed Specialty Services Required 03/02/2022 09/01/2023 1 1 Encounter Details Date Type Department Care Team (Late st Contact Info) Description 03/02/2022 [facility] [address] [place] [address] Carroll Michael MD [address] [place] [phone] 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 [...] Description 06/12/2025 11:00 AM EDT Office Visit [facility] [address] [place] [address] Onelia Sun MD [address] [place] [address] Scheduled Referrals Name Type Priority Associated Diagnoses Order Schedule Ambulatory referral to Neurology Outpatient Referral Routine 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
--- OUTSIDE RECORDS SUMMARY | 2025-02-26 14:31 | XMS_ITS | Encounter Summary ---
Author Organization [facility] Address [address] [place] [phone] Care Team Providers Care Dental Surgeon Name Role Phone Chauncey Foreign Shaver DO Primary Care Provider + Reason for Visit * Reason Comments Med Refill Encounter Details Date Type Department Care Team (Late Contact Info) Description 01/18/2025 Refill [facility] [address] [facility] [address] [place] [phone] Tai Sauer MD [address] [facility] [address] [place] [address] Med Refill Social History Tobacco Use Types [...] Start Date Job End Date 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 Not on file Not on file Not on file documented as of this encounter Plan of Treatment Upcoming Encounters Date Type Department Care Team (Late Contact Info) Description 11/29/2025 11:30 AM EDT Office Visit [facility] [address] [place] [address] [place] [address] Tai Sauer MD [address] [place] [address] documented as of this encounter Visit Diagnoses Not on filedocumented in this encounter Care Teams Dental Surgeon Relationship Specialty Start Date End Date Foreign Grossman DO [address] [place] [address] PCP - General Internal Medicine 08/10/24 documented as of this encounter
--- OUTSIDE RECORDS SUMMARY | 2025-02-26 14:31 | XMS_ITS | Clinical Summary ---
Author Organization [employer] ([place], [place], [place], [place], [place]) Address [address] [place] [address] Care Team Providers Care Parts Manager Name Role Phone Leopoldo Stoll MD [...] 1 tablet by mouth daily. Active omega 7-udk-grq-fish oil capsule Take 1 capsule (1,000 mg [...] Date Tino rded Speak language other than South African at home Not on file 04/13/2023 Want [...] series) 12/20/2027 Medical Devices Implanted Type Area Therapeutic Activities Services Worker Device Identifier Shelf Expiration Date Model / Serial / Lot Scr Acet Canc Pinn 6.5x25mm 1217-25-500 - [id number] Implanted:Qty : 1 on 05/20/2023 by Shayne Staples MD at [facility] [employer] Right: Hip J &J:DEPUY:DEPUY ORTH[employer] 01/02/2033 1217-25-5 00 / / [id number] Liner Pincl Altrx [id number] 1221-36-052 - [id number] Implanted:Qty : 1 on 05/20/2023 by Shayne Staples MD at [facility] [employer] Right: Hip J &J:DEPUY:[employer] 02/03/2028 1221-36-0 52 / / [id number] Cup Acet Gription Sz 52mm 1217-32-052 - [id number] Implanted:Qty : 1 on 05/20/2023 by Shayne Staples MD at [facility] [employer] Right: Hip J &J:DEPUY:[employer] OR[employer] 03/04/2033 1217-32-0 52 / / [id number] Stem Actis Colld Std Sz 3 1010-11-030 - [id number] Implanted:Qty : 1 on 05/20/2023 by Shayne Staples MD at [facility] [employer] Right: Hip J &J:DEPUY:[employer] OR[employer] 03/04/2033 1010-11-0 30 / / [id number] Head Fem Artc Ceramic Tpr36+5 1365-36-320 - [id number] Implanted:Qty : 1 on 05/20/2023 by Shayne Staples MD at [facility] [employer] Right: Hip J &J:DEPUY:[employer] 02/03/2028 1365-36-3 [id number] Insurance [facility] MEDICARE PPO Advance Directives For more information, please contact: [phone] * Full Code (Latest Code Status on File) Date Activated Date Inactivated Comments 05/20/2023 5:49 PM 05/21/2023 2:48 PM Care Teams Parts Manager Relationship Specialty Start Date End Date Leopoldo Stoll MD [address] [place] [address] PCP - General Family Medicine 05/19/23
--- OUTSIDE RECORDS SUMMARY | 2025-02-26 14:31 | XMS_ITS | Referral Summary ---
Author Organization [employer] ([place], [place], [place], [place], [place]) Address [address] [place] [address] Care Team Providers Care Pediatric Oncologist Name Role Phone Leopoldo Stoll MD Primary [...] 1 tablet by mouth daily. Active omega 9-gxp-wpj-fish oil capsule Take 1 capsule (1,000 mg [...] Date Tino rded Speak language other than Swedish at home Not on file 04/13/2023 Want [...] on file Medical Devices Implanted Type Area Automatic Gluing Machine Operator Device Identifier Shelf Expiration Date Model / Serial / Lot Scr Acet Canc Pinn 6.5x25mm 1217-25-500 - [id number] Implanted:Qty : 1 on 05/20/2023 by Shayne Staples MD at [facility] [employer] Right: Hip J &J:DEPUY:DE[employer] ORTHOPAEDIC 01/02/2033 1217-25-5 00 / / [id number] Liner Pincl Altrx [id number] 1221-36-052 - [id number] Implanted:Qty : 1 on 05/20/2023 by Shayne Staples MD at [facility] [employer] Right: Hip J &J:DEPUY:[employer] 02/03/2028 1221-36-0 52 / / [id number] Cup Acet Gription Sz 52mm 1217-32-052 - [id number] Implanted:Qty : 1 on 05/20/2023 by Shayne Staples MD at [facility] [employer] Right: Hip J &J:DEPUY:[employer]ED[employer] 03/04/2033 1217-32-0 52 / / [id number] Stem Actis Colld Std Sz 3 1010-11-030 - [id number] Implanted:Qty : 1 on 05/20/2023 by Shayne Staples MD at [facility] [employer] Right: Hip J &J:DEPUY:[employer] ORTH[employer]EDIC 03/04/2033 1010-11-0 30 / / [id number] Head Fem Artc Ceramic Tpr36+5 1365-36-320 - [id number] Implanted:Qty : 1 on 05/20/2023 by Shayne Staples MD at [facility] T[employer] Right: Hip J &J:DEPUY:DE[employer]Y ORTHOPAEDIC 02/03/2028 1365-36-3 20 / / [id number] Insurance [employer] MEDICARE PPO Advance Directives For more information, please contact: [phone] * Full Code (Latest Code Status on File) Date Activated Date Inactivated Comments 05/20/2023 5:49 PM 05/21/2023 2:48 PM Care Teams Pediatric Oncologist Relationship Specialty Start Date End Date Leopoldo Stoll MD [address] [place] [address] PCP - General Family Medicine 05/19/23
--- OUTSIDE RECORDS SUMMARY | 2025-02-26 14:31 | XMS_ITS | Clinical Summary ---
Author Organization [facility] Address [address] [place] [address] Care Team Providers Care L[employer] Offbearer Name Role Phone Norberto Duff MD Primary Care Provider [phone] Allergies Active Allergy Reactions Criticality Noted Date [...] Description 06/12/2025 11:00 AM EDT Office Visit [facility] [address] [place] [id number] Onelia Sun MD [address] [phone] Health Maintenance Due Date Last [...] Screening 11/11/20222021, 05/20/2021, 03/21/2021, Additional history exists [id number] Vaccine ( season) 2024 04/16/2021, 06/30/2020, 06/16/2020, [...] patient's age to complete this topic Insurance [facility] MEDICARE Care Teams Lumber Chain Offbearer Relationship Specialty Start Date End Date Norberto Duff MD [address] [place] [address] #1 #1 Siomara ALYSSA [id number] PCP - General 08/16/20
== END 2025-02-26 23:59 | disposition home or self-care (01) ==
LOC: RAD 14:22
PROVIDERS: PCP Internal Medicine; Visit Provider Nurse Practitioner Family
DX: M47.812 Spondylosis without myelopathy or radiculopathy, cervical region (principal); M50.30 Other cervical disc degeneration, unspecified cervical region; M48.02 Spinal stenosis, cervical region; Z98.1 Arthrodesis status
CPT/HCPCS: 72125

== ENCOUNTER 2025-02-28 13:00 | Outpatient (RCR) | payer MEDICARE, SELFPAY | END 2025-02-28 23:59 | disposition home or self-care (01) | LOC: OT 13:00 | PROVIDERS: PCP Internal Medicine; Visit Provider Physician Assistant Surgical | DX: Z47.89 Encounter for other orthopedic aftercare (principal); Z96.611 Presence of right artificial shoulder joint | CPT/HCPCS: 97014; 97032; 97110; 97140; 97530; G0283 ==

== ENCOUNTER 2025-03-19 13:00 | Outpatient (RCR) | payer MEDICARE, SELFPAY | END 2025-03-19 23:59 | disposition home or self-care (01) | LOC: OT 13:00 | PROVIDERS: PCP Internal Medicine; Visit Provider Physician Assistant Surgical | DX: Z47.89 Encounter for other orthopedic aftercare (principal); Z98.890 Other specified postprocedural states | CPT/HCPCS: 97014; 97110; 97140; G0283 ==